=== PATIENT | female | born 1945 | race Caucasian/White ===

== ENCOUNTER → 2018-07-07 10:31 | Outpatient (CLI) | payer MEDICARE, SELFPAY ==
--- NOTE | 2018-07-07 11:12 | BI_ITS ---
MAMMOGRAPHY - BILATERAL SCREENING REASON FOR EXAM: Female, 72 years old. Routine annual screening examination. PERTINENT HISTORY: Non-contributory. TECHNIQUE: Digital bilateral breast modesto (3D mammographic acquisition) in the CC and MLO projections. 2-D mediolateral oblique (MLO) and craniocaudad (CC) views of both breasts were obtained. CAD: Full Field Digital Mammography with Computer Added Detection was performed. COMPARISON: Comparison is made with prior study dated May 16, 2017 and May 12, 2016. FINDINGS: Breast Composition: The breasts are almost entirely fatty. There are no dominant masses or suspicious calcifications. No other significant abnormalities are identified. There has been no significant change since the prior study. BI/SCREENING MAMM (CAD), BILAT IMPRESSION: Stable bilateral screening mammogram. Yearly follow-up mammogram recommended. (A) ASSESSMENT CATEGORY: BIRADS Category 1: Negative. A letter regarding these results will be sent to the patient by the facility within 30 days. Approximately 10% of breast cancers are not detected by mammography. A normal mammogram should not delay biopsy of a clinically suspicious abnormality. [id number] Electronically Signed: Haseeb Frias MD at 8:07 EST Tel [phone], Service support ,
== END ==
PROVIDERS: Family Provider Internal Medicine; PCP Internal Medicine; Referring Provider Internal Medicine; Visit Provider Internal Medicine
DX: Z12.31 Encounter for screening mammogram for malignant neoplasm of breast (principal)
CPT/HCPCS: 77063; 77067

== ENCOUNTER 2018-09-04 07:22 | Day surgery (SDC) | payer MEDICARE, SELFPAY ==
[2018-08-10 14:16] VITALS: BMI 31.1
[2018-09-04 07:48] VITALS: BP 214/81; PULSE 70; RESP 16; TEMP 37; O2SAT 95; BMI 31.4
--- NOTE | 2018-09-04 08:00 | IMM_PTH ---
PATIENT: KAREN HUDSON LOC: EN U#:[id number] AGE/SX: 72/F ROOM: RE09/04/[address]: Dr. Oziel Quinones MD : 1945 BED: DIS: 09/04/2018 SPEC #: [id number] RECD: 09/04/18 15:32 STATUS: MONSE AVA #: [id number] NIKI: 09/04/18 08:[address]: Oziel Quinones DEPT: IMMUNOHISTOCHEMISTRY RECD BY: Sheridan Elizabeth ENTERED: 09/04/18 15:32 SP TYPE: IMMUNO OTHR DR: Dr. Yashira Crandall DO Tissues: B - Stomach, NOS Procedures: H Pylori (initial) PHYSICIAN & INSTITUTION [place] [address] SPECIMEN INFORMATION: Tissue Source: B - Antrum biopsy Clinical Info: Dysphagia Specimen Number: [id number] CPT code: 13058 METHODOLOGY: Deparaffinized sections of prefer/formalin-fixed tissue or PAP/DQ stained slides are incubated with monoclonal/polyclonal antibodies/oligonucleotide probes. Localization is made via biotin free immunoperoxidase method. Appropriate controls are performed and reacted as expected. Results on target cell population are indicated in the following table: RESULTS: ANTIBODY / CLONE RESULT Block B H Pylori (polyclonal) negative These tests were developed and their performance characteristics determined by [facility]. They may not have been cleared or approved by the U.[place]. Food and Drug Administration. The FDA has determined that such clearance or approval is not necessary. INTERPRETATION: B. Antrum, biopsy: Negative for Helicobacter pylori organisms. AM:esmer 09/06/18
--- NOTE | 2018-09-04 08:00 | EGD_PTH ---
PATIENT: KAREN HUDSON LOC: EN U#:[id number] AGE/SX: 72/F ROOM: RE09/04/[address]: Dr. Oziel Quinones MD : 1945 BED: DIS: 09/04/2018 SPEC #: [id number] RECD: 09/04/18 11:30 STATUS: MONSE AVA #: [id number] NIKI: 09/04/18 08:[address]: Oziel Quinones DEPT: SURGICAL PATHOLOGY RECD BY: Ike Green ENTERED: 09/04/18 11:31 SP TYPE: EGD BIOPSY OTHR DR: Dr. Yashira Crandall DO Tissues: A - Duodenum, NOS B - Gastric mucous membrane C - Gastric fundus D - Esophagus, NOS E - Esophagus, NOS Procedures: Special Stain Group II Surgery Specimen Level IV Alcian Blue/PAS (control) HEADER OPERATION: EGD ([facility] [place] PRE-OP DIAGNOSIS: Dysphagia TISSUE SUBMITTED: A - Duodenum biopsy, B - Antrum biopsy for H. pylori and path, C - Biopsy of fundic polyp, D - Distal esophagus biopsy, E - Mid esophagus biopsy MICROSCOPIC DIAGNOSIS A. Duodenum, biopsy: No pathologic diagnosis. B. Gastric antrum, biopsy: Mild chronic gastritis. See comment. C. Gastric fundus, biopsy: Fragments of fundic gland polyp. D. 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 Mild chronic inflammation. No evidence of dysplasia. See comment. E. Mid esophagus, biopsy: Fragments of benign squamous epithelium. No evidence of inflammation. AM:esmer 09/05/18 COMMENT B. The results of immunohistochemistry for Helicobacter pylori will be reported separately ([id number]). D. Alcian blue/PAS stain with matched control supports the above diagnosis. MICROSCOPIC DESCRIPTION Slides are reviewed. GROSS DESCRIPTION A - Received in fixative is one container labeled with the patient's name and designated duodenum biopsy. The specimen consists of one irregular fragment of light easley soft tissue that measures 0.3 x 0.2 x 0.1 cm. The specimen is totally submitted in one cassette. B - Received in fixative is one container labeled with the patient's name and designated antrum biopsy. The specimen consists of two irregular fragments of light easley soft tissue that in aggregate measure 0.4 x 0.2 x 0.1 cm. The specimen is totally submitted in one cassette. C - Received in fixative is one container labeled with the patient's name and designated biopsy of fundic polyp. The specimen consists of two irregular fragments of light easley soft tissue that in aggregate measure 0.6 x 0.3 x 0.1 cm. The specimen is totally submitted in one cassette. D - Received in fixative is one container labeled with the patient's name and designated distal esophagus biopsy. The specimen consists of multiple irregular fragments of light easley soft tissue that in aggregate measure 0.6 x 0.5 x 0.1 cm. The specimen is totally submitted in one cassette. E - Received in fixative is one container labeled with the patient's name and designated mid esophagus biopsy. The specimen consists of one irregular fragment of light easley soft tissue that measures 0.4 x 0.3 x 0.1 cm. The specimen is totally submitted in one cassette. / SJ:rg 09/04/18 TC:3 CPT: 35995 x5, 74540
[2018-09-04 08:45] VITALS: BP 133/68; BP 214/81; PULSE 70; RESP 16; TEMP 36.4; O2SAT 94
--- NOTE | 2018-09-04 08:47 | OP.ENDO_ITS ---
Patient Name: Laurie Javier Procedure Date: 09/04/2018 8:25 AM Date of : 1945 Age: 72 Procedure: Upper GI endoscopy Indications: Dysphagia Providers: Oziel Quinones MD Referring MD: Yashira Crandall Medicines: See the Anesthesia note for documentation of the administered medications Complications: No immediate complications. Procedure: Pre-Anesthesia Assessment: - Prior to the procedure, a History and Physical was performed, and patient medications and allergies were reviewed. The patient's tolerance of previous anesthesia was also reviewed. The risks and benefits of the procedure and the sedation options and risks were discussed with the patient. All questions were answered, and informed consent was obtained. Prior Anticoagulants: The patient has taken no previous anticoagulant or antiplatelet agents. ASA Grade Assessment: II - A patient with mild systemic disease. After reviewing the risks and benefits, the patient was deemed in satisfactory condition to undergo the procedure. After obtaining informed consent, the endoscope was passed under direct vision. Throughout the procedure, the patient's blood pressure, pulse, and oxygen saturations were monitored continuously. The gastroscope was introduced through the mouth, and advanced to the second part of duodenum. The upper GI endoscopy was accomplished without difficulty. The patient tolerated the procedure well. Scope In: 8:32:29 AM Scope Out: 8:40:12 AM Total Procedure Duration Time 0 hours 7 minutes 43 seconds Findings: LA Grade A (one or more mucosal breaks less than 5 mm, not extending between tops of 2 mucosal folds) esophagitis with no bleeding was found 34 cm from the incisors. Biopsies were taken with a cold forceps for histology. The Z-line was irregular and was found 34 cm from the incisors. A 5 cm hiatal hernia was present. Diffuse mild inflammation was found in the gastric antrum. Biopsies were taken with a cold forceps for histology. Multiple pedunculated and sessile polyps with no stigmata of recent bleeding were found in the gastric fundus. The polyp was removed with a cold biopsy forceps. Resection and retrieval were complete. The examined duodenum was normal. Biopsies were taken with a cold forceps for histology. Impression: - LA Grade A reflux esophagitis. Biopsied. - Z-line irregular, 34 cm from the incisors. - 5 cm hiatal hernia Mid esophagus normal, biopsies obtained. - Chronic gastritis. Biopsied. - Multiple gastric polyps. Resected and retrieved. - Normal examined duodenum. Biopsied. Recommendation: - Discharge patient to home. - Resume previous diet. - Continue present medications. - Return to my office in 1 week. No stricture but significant hiatal hernia and changes of reflux. Consider manometry and repair. Procedure Code(s): --- Professional --- 84445, Esophagogastroduodenoscopy, flexible, transoral; with biopsy, single or multiple Diagnosis Code(s): --- Professional --- K21.0, Gastro-esophageal reflux disease with esophagitis K22.8, Other specified diseases of esophagus K44.9, Diaphragmatic hernia without obstruction or gangrene K29.50, Unspecified chronic gastritis without bleeding K31.7, Polyp of stomach and duodenum R13.10, Dysphagia, unspecified CPT copyright 2017 [place]. All rights reserved. The codes documented in this report are preliminary and upon hcc coders review may be revised to meet current compliance requirements. Oziel Quinones MD 09/04/2018 8:47:31 AM This report has been signed electronically. Number of Addenda: 0 Note Initiated On: 09/04/2018 8:25 AM
[2018-09-04 08:50] VITALS: BP 150/76; BP 214/81; PULSE 64; RESP 16; O2SAT 95
[2018-09-04 08:55] VITALS: BP 144/74; BP 214/81; PULSE 60; RESP 16; O2SAT 95
[2018-09-04 09:00] VITALS: BP 145/70; BP 152/72; PULSE 63; RESP 16; TEMP 36.2; O2SAT 94
[2018-09-04 09:38] VITALS: BP 145/70
== END 2018-09-04 09:49 | disposition home or self-care (01) ==
LOC: EN 07:26 → AC 07:26
PROVIDERS: Family Provider Internal Medicine; PCP Internal Medicine; Referring Provider Surgery; Visit Provider Surgery
PROC: 0DJ08ZZ Inspection of Upper Intestinal Tract, Via Natural or Artificial Opening Endoscopic (ICD-10-PCS; CPT 43235; principal; 2018-09-04 07:55)
DX: K29.50 Unspecified chronic gastritis without bleeding (principal); R13.10 Dysphagia, unspecified; K21.0 Gastro-esophageal reflux disease with esophagitis; K44.9 Diaphragmatic hernia without obstruction or gangrene; K31.7 Polyp of stomach and duodenum; Q39.9 Congenital malformation of esophagus, unspecified
CPT/HCPCS: 43239; 88305; 88313; 88342; J7120

== ENCOUNTER 2018-10-04 09:07 | Day surgery (SDC) | payer MEDICARE, SELFPAY ==
[2018-09-17 13:44] VITALS: BMI 31.4
[2018-10-04 10:03] VITALS: BP 178/85; PULSE 67; RESP 16; TEMP 36.7; O2SAT 99
== END 2018-10-04 10:03 | disposition home or self-care (01) ==
LOC: EN 09:09 → AC 09:15
PROVIDERS: Family Provider Internal Medicine; PCP Internal Medicine; Referring Provider Surgery; Visit Provider Surgery
PROC: F00ZJWZ Instrumental Swallowing and Oral Function Assessment using Swallowing Equipment (ICD-10-PCS; CPT 43235; principal; 2018-10-04 08:55)
DX: K21.9 Gastro-esophageal reflux disease without esophagitis (principal)
CPT/HCPCS: 91010

== ENCOUNTER → 2018-11-06 11:43 | Outpatient (CLI) | payer MEDICARE, SELFPAY ==
[2018-10-16 13:37] VITALS: BMI 31.4
[2018-11-06 11:47] LABS: Mucous, Urine 0 SEEN /hpf (<or=2+); Red Blood Cells-Urine 0 SEEN /hpf (0-5); Squamous Epithelial Cells - UA 0 SEEN /hpf (5-10)
[2018-11-06 12:48] LABS: Absolute Lymphocyte Count 2.76 X10^3/ul (0.83-4.51); Absolute Neutrophil Count 4.5 X10^3/uL (2.0-7.7); Basophil# 0.02 X10^3/uL; Basophil% 0.3 % (0-1); Eosinophil# 0.08 X10^3/uL; Lymphocyte # 2.76 X10^3/ul (4.0); Lymphocyte % 34.5 % (19-41); Mean Corp Hgb Conc 33.3 g/gl (32-36); Mean Corpuscular Hgb 31.5 pg (27.0-32.0); Mean Corpuscular Volume 94.4 fL (81-99); Mean Platelet Vol. 9.1 fl (6.2-12.0); Monocyte# 0.65 X10^3/uL; Monocyte% 8.1 % (0-10); Neutrophil # 4.45 X10^3/uL (2.7-7.7); Neutrophil % 55.7 % (47-70); Platelet Count 305 K/mm3 (150-450); RBC Distribution Width CV 11.9 % (11.6-14.6); RBC Distribution Width SD 40.1 fl (35.1-43.9); Red Blood Count 4.45 M/mm3 (4.2-5.4)
[2018-11-06 12:49] LABS: POSITIVE COUNT NO; POSITIVE DIFFERENTIAL NO; POSITIVE MORPHOLOGY NO
[2018-11-06 12:54] LABS: Color, Urine Yellow (Yellow); Glucose, Dipstick Normal (Normal); Ketone-Dipstick Negative (Negative); Leukocyte Esterase-Dipstick Negative /ul (Negative); Nitrite-Dipstick Negative (Negative); Occult Blood-Urine 25 /ul (Negative); Protein-Dipstick Negative (Negative); Urine Bilirubin Dipstick Negative (Negative); Urine Clarity Clear (Clear); Urine Urobilinogen Normal (Normal)
[2018-11-06 13:01] LABS: Bacteria RARE /hpf (None Seen); White Blood Cells 0-5 SEEN /hpf (0-5)
[2018-11-06 13:23] LABS: Microalbumin,Random Urine 7.7 mg/L (NO RANGE EST.); Microalbumin:Creatinine Ratio 12.2 mg/g CRE (<30 mg/g CRE)
[2018-11-06 13:45] LABS: ALB/GLOB Ratio 1.1 RATIO (0.9-2.4); AST(SGOT) 31 U/L (15-37); Alanine Aminotransfer ALT/SGPT 34 U/L (13-56); Albumin, Serum 3.8 g/dL (3.2-5.0); Alkaline Phosphatase 76 U/L (45-117); Anion Gap 9 (5-15); BUN 14 mg/dL (7-18); BUN/Creat Ratio 16.5 RATIO (10-20); Calcium,Total 8.9 mg/dL (8.5-10.1); Chloride 103 mmol/L (98-107); Creatinine, Serum 0.85 mg/dL (0.55-1.02); EST Glomerular Filtration Rate 70 mL/min (>60); Est Glom Filt Rate - Afr Amer 85 mL/min (>60); Globulin 3.6 g/dL (2.2-4.2); Glucose 85 mg/dL (74-106); Potassium 3.6 mmol/L (3.5-5.1); Protein, Total 7.4 g/dL (6.4-8.2); Sodium Level 139 mmol/L (136-145); Thyroid Stim Hormone (TSH) 3.03 uIU/mL (0.358-3.74)
== END ==
PROVIDERS: Family Provider Internal Medicine; PCP Internal Medicine; Referring Provider Nurse Practitioner Gerontology; Visit Provider Nurse Practitioner Gerontology
DX: I10 Essential (primary) hypertension (principal)
CPT/HCPCS: 36415; 80053; 81001; 82043; 82570; 84443; 85025

== ENCOUNTER 2018-11-19 11:47 | Observation (INO) | payer MEDICARE, SELFPAY ==
[2018-10-16 13:37] VITALS: BMI 31.4
[2018-11-14 13:12] VITALS: BMI 31.4
[2018-11-19] VITALS (12 sets, daily range): BP systolic 108–173; BP diastolic 63–83; PULSE 56–85; RESP 14–18; TEMP 35.7–36.7; O2SAT 88–100; BMI 31.2
--- NOTE | 2018-11-19 07:48 | HP.PCM_ITS ---
Problem List (1) GERD without esophagitis Status: Acute (2) Barretts esophagus Status: Acute Qualifiers: History of Present Illness Date of Admission: 11/19/18 The patient is a 73 year old F [] Past Medical History Medical History: Medical History (Last Reviewed 11/14/18 @ 13:08 by Mendy Hay) GERD without esophagitis (Acute) K21.9 Barretts esophagus (Acute) K22.70 Severe esophageal dysplasia (Acute) Q39.9 Difficulty swallowing R13.10 Epigastric pain R10.13 Thyroid disease E07.9 Allergies No Known Allergies Allergy (Verified 11/15/18 14:54) Home Medications: Ambulatory Orders Medication Instructions Recorded levothyroxine 100 mcg capsule 100 mcg PO QHS 08/10/18 omeprazole 40 mg capsule,delayed 40 mg PO 1400 08/10/18 release Ascorbic Acid [Vitamin C] 500 mg PO DAILY@0800 08/29/18 Cholecalciferol (Vitamin D3) 2,000 unit PO DAILY 08/29/18 [Vitamin D3] Cyanocobalamin [Vitamin B12] 1,000 mcg PO DAILY@0800 08/29/18 Magnesium 400 mg PO DAILY 08/29/18 Multivit with Calcium,Iron,Min 1 ea PO DAILY 08/29/18 [Multiple Vitamins For Women] [place]-3 Fatty Acids/Fish Oil [Fish 1 ea PO DAILY 08/29/18 Oil 1,000 mg Capsule] losartan 50 mg-hydrochlorothiazide 1 tab PO DAILY 11/14/18 12.5 mg tablet Albuterol IH (ProAir) [Proair Hfa 1 - 2 puff INHALATION Q6H PRN PRN 11/15/18 (SP)Vent Pts] Doxycycline Hyclate 100 mg PO BID 11/15/18 Xylitol [Xylimelts] 550 mg MM QHS 11/15/18 Surgical History: Surgical History (Last Reviewed 11/14/18 @ 13:08 by Mendy Hay) History of colonoscopy Onset Date: ~02/24/15 Z98.890 History of esophagogastroduodenoscopy (EGD) Onset Date: ~08/31/17 Z98.890 History of esophagogastroduodenoscopy (EGD) Onset Date: ~09/2018 Z98.890 History of laparoscopic cholecystectomy Z90.49 History of left cataract surgery Z98.42 History of repair of hiatal hernia Z98.890, Z87.19 Smoking Status: Never smoker Tobacco Use: Non-smoker - Physical Exam Vital Signs Temp Pulse Resp BP Pulse Ox 97.7 F L 64 14 173/76 H 100 11/19/18 06:59 11/19/18 06:59 11/19/18 06:59 11/19/18 06:59 11/19/18 06:59 Oxygen Delivery Method Room Air Weight: 187 lb 13.341 oz Body Mass Index (BMI) 31.2 Assessment/Plan All Active Problems (Last Reviewed 11/14/18 @ 13:08 by Mendy Hay) GERD without esophagitis (Acute) Barretts esophagus (Acute) Severe esophageal dysplasia (Acute)
--- NOTE | 2018-11-19 08:29 | PCM.DC.GS ---
Discharge Diet: Light diet - advance as tolerated - if you have questions about your diet instructions, please talk to you doctor. Discharge Activity: May Not Drive - for 3-5 days or while taking narcotic pain medicine. May shower in (days): 1 Lifting Restrictions: 10 pounds Call your doctor if your incision/area has: Continuous Slow Oozing, Sudden Increased Bleeding, Increased Pain/ Swelling, Increased Redness, Foul Smelling Discharge Call your doctor if you observe: Fever of 101 or Higher Suture Line Care: Avoid Pulling/Pushing, Avoid Pinching/Bending Additional Dressing/Incision Instructions:: Change or remove dressing in 4 days. Leave steri-strips in place for 1 week. Allergies/Adverse Reactions: Allergies No Known Allergies Allergy (Verified 11/15/18 14:54) Medications to take at Discharge levothyroxine 100 mcg capsule 100 mcg PO QHS 08/10/18 omeprazole 40 mg capsule,delayed release 40 mg PO 1400 08/10/18 Ascorbic Acid [Vitamin C] 500 mg PO DAILY@0800 08/29/18 Cholecalciferol (Vitamin D3) [Vitamin D3] 2,000 unit PO DAILY 08/29/18 Cyanocobalamin [Vitamin B12] 1,000 mcg PO DAILY@0800 08/29/18 Magnesium 400 mg PO DAILY 08/29/18 Multivit with Calcium,Iron,Min [Multiple Vitamins For Women] 1 ea PO DAILY 08/29/18 [place]-3 Fatty Acids/Fish Oil [Fish Oil 1,000 mg Capsule] 1 ea PO DAILY 08/29/18 losartan 50 mg-hydrochlorothiazide 12.5 mg tablet 1 tab PO DAILY 11/14/18 Albuterol IH (ProAir) [Proair Hfa] 1 - 2 puff INHALATION Q6H PRN PRN 11/15/18 Doxycycline Hyclate 100 mg PO BID 11/15/18 Xylitol [Xylimelts] 550 mg MM QHS 11/15/18 Hydrocodone Bitart/Apap 5-325 [[place] 5MG-325MG] 1 tablet PO Q6H PRN PRN 2 Days #6 tablet 11/19/18 The following prescriptions were given: Hydrocodone Bitart/Apap 5-325 [[place] 5MG-325MG] 1 tablet PO Q6H PRN PRN 2 Days #6 tablet PRN Reason: Pain Primary Care Physician: Yashira Crandall DO [Primary Care Provider] - Test Results: Test results from this visit will be discussed in further detail at your follow-up appointment, if applicable. Please Follow Up With: Oziel Quinones MD - [phone] When: Call to make an appointment to be seen in about 10 days.
[2018-11-19] MEDS: Cefazolin 2 GM in 0.9% Normal Saline 100 ML IV (08:39)
[2018-11-19] MEDS: Bupivacaine Mpf 0.5% 30 ML VIAL (11:50)
--- NOTE | 2018-11-19 11:51 | PCM.OPRPT ---
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 73-year-old female 6 tracheal intubation anesthesia. Ancef 2 g given intravenous preoperatively. She was placed in a low lithotomy position care. Careful buttock padding was performed. The abdomen was sterilely prepped draped. Ioban was used to pull the drapes in position. 0.5% Marcaine was used as local anesthetic. Skin sites were pre-anesthetized. To the right of the umbilicus and superiorly 5 mm Visiport technology was used to gain access. Clean access was achieved. The abdomen was insufflated with CO2 to a pressure of 10 mmHg pressure. There is evidence of previous surgery at the umbilical area with adhesions of omentum to that site. The patient had history of laparoscopic cholecystectomy and then a incisional hernia repair and then incisional hernia repair with mesh at that site. No attempt was made to take these adhesions down. The remainder the abdomen was inspected a moderate sized hiatal hernia was identified. Moderate portion of stomach within the chest. 5-minute report was placed in the left upper quadrant in the left lateral upper quadrant. A Prema retractor was placed near the xiphoid area and used to elevate the left lobe of the liver. The gastrophrenic ligament and there was significant amount of fibrofatty gastric fat at that area with evidence of sliding hiatal hernia. The stomach with withdrawn into the abdomen harmonic scalpel dissection was used to identify the right christian and then dissected over the anterior surface of the esophagus. Attention was now drawn to the left christian as extensive dissection was required to the amount of tissue that it withdrawn into the chest. The short gastrics were now transected using the harmonic scalpel. I did place a piece of fibular in the splenic area to further assist with hemostasis. Upon now having identified both the right and left christian and having dissected the anterior portion of the esophagus was able to get a grasper to go retroesophageal I placed 1/2 inch Gelacio drain use that to elevate the esophagus that allowed me to continue my circumferential dissection around the esophagus and completely mobilize it for approximately 6 cm to 8 cm. [place] that he had good mobilization. The posterior vagus nerve was identified and was carefully protected with the Gelacio drain. There is a posterior fat pad that I dissected free. The anterior fibrofatty tissue was also dissected free to allow for exposure of the anterior surface of the esophageal wall. Having achieved that I then repaired the diaphragmatic crura using the small pledgets of Hemashield Dacron. And 0 Nurolon sutures. That was nicely repaired posteriorly. I then took the fundus the stomach wrapped posteriorly appeared to sit in very nice position. I secured the wrap portion of the stomach to the diaphragmatic christian. Then using again 0 Nurolon I sutured the right aspect of the wrap portion of the fundus to the anterior wall of the esophagus with a running 0 Ethibond. Excellent positioning was achieved. I then took the fundus of the stomach and then a similar fashion secured the posterior aspect of the left portion of the fundus. Very nice positioning was achieved with a 270 degrees wrap. I secured the wrap to the epiphrenic ligament on the left with the 0 Nurolon. I further secured the anterior wall of the esophagus to the epiphrenic ligament with the a 0 Ethilon. The upper abdominal area was irrigated. I placed a flexible gastroscope then performed an upper endoscopy to the quick inspection of the antrum the stomach some mild erythema of the duodenum appeared to be unremarkable I retroflexed the scope there was a small amount of blood in the fundus however the posterior wrap could be visualized. Excess fluid and air was aspirated free there was absolutely no air leak within the abdomen. The EG junction appeared to be repositioned at its appropriate level if there was absolutely no hindrance of the scope passing the site of repair. Excess fluid and air was then aspirated out of the abdomen. I did place a piece of fibular on the short gastric area of the spleen hemostasis however nicely intact. Excess fluid and air was aspirated free. A GraNee needle and 0 Vicryl was used to repair the telemeter port site which had been placed in the left epigastrium. All remaining trochars removed under visualization. The abdomen was allowed to deflate the CO2. Skin edges proximal interrupted 4 Monocryl subdermal stitches. Steri-Strips Telfa and OpSite dressings applied. Sponge and instrument and needle counts reported the surgery were correct. Blood loss have been quite minimal. Specimens none. Drains none. Blood loss minimal. She was taken to the recovery area in sensory condition without apparent complication. Oziel Quinones M.D., F.A.C.S. Type of Anesthesia:: General Anesthesiologist: Ariella Resendez
--- NOTE | 2018-11-19 11:59 | OP.PCM_ITS ---
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 73-year-old female 6 tracheal intubation anesthesia. Ancef 2 g given intravenous preoperatively. She was placed in a low lithotomy position care. Careful buttock padding was performed. The abdomen was sterilely prepped draped. Ioban was used to pull the drapes in position. 0.5% Marcaine was used as local anesthetic. Skin sites were pre- anesthetized. To the right of the umbilicus and superiorly 5 mm Visiport technology was used to gain access. Clean access was achieved. The abdomen was insufflated with CO2 to a pressure of 10 mmHg pressure. There is evidence of previous surgery at the umbilical area with adhesions of omentum to that site. The patient had history of laparoscopic cholecystectomy and then a incisional hernia repair and then incisional hernia repair with mesh at that site. No attempt was made to take these adhesions down. The remainder the abdomen was inspected a moderate sized hiatal hernia was identified. Moderate portion of stomach within the chest. 5-minute report was placed in the left upper quadrant in the left lateral upper quadrant. A Prema retractor was placed near the xiphoid area and used to elevate the left lobe of the liver. The gastrophrenic ligament and there was significant amount of fibrofatty gastric fat at that area with evidence of sliding hiatal hernia. The stomach with withdrawn into the abdomen harmonic scalpel dissection was used to identify the right christian and then dissected over the anterior surface of the esophagus. Attention was now drawn to the left christian as extensive dissection was required to the amount of tissue that it withdrawn into the chest. The short gastrics were now transected using the harmonic scalpel. I did place a piece of fibular in the splenic area to further assist with hemostasis. Upon now having identified both the right and left christian and having dissected the anterior portion of the esophagus was able to get a grasper to go retroesophageal I placed 1/2 inch [place] drain use that to elevate the esophagus that allowed me to continue my circumferential dissection around the esophagus and completely mobilize it for approximately 6 cm to 8 cm. [place] that he had good mobilization. The posterior vagus nerve was identified and was carefully protected with the [place] drain. There is a posterior fat pad that I dissected free. The anterior fibrofatty tissue was also dissected free to allow for exposure of the anterior surface of the esophageal wall. Having achieved that I then repaired the diaphragmatic crura using the small pledgets of Hemashield Dacron. And 0 Nurolon sutures. That was nicely repaired posteriorly. I then took the fundus the stomach wrapped posteriorly appeared to sit in very nice position. I secured the wrap portion of the stomach to the diaphragmatic christian. Then using again 0 Nurolon I sutured the right aspect of th e wrap portion of the fundus to the anterior wall of the esophagus with a running 0 Ethibond. Excellent positioning was achieved. I then took the fundus of the stomach and then a similar fashion secured the posterior aspect of the left portion of the fundus. Very nice positioning was achieved with a 270 degrees wrap. I secured the wrap to the epiphrenic ligament on the left with the 0 Nurolon. I further secured the anterior wall of the esophagus to the epiphrenic ligament with the a 0 Ethilon. The upper abdominal area was irrigated. I placed a flexible gastroscope then performed an upper endoscopy to the quick inspection of the antrum the stomach some mild erythema of the duodenum appeared to be unremarkable I retroflexed the scope there was a small amount of blood in the fundus however the posterior wrap could be visualized. Excess fluid and air was aspirated free there was absolutely no air leak within the abdomen. The EG junction appeared to be repositioned at its appropriate level if there was absolutely no hindrance of the scope passing the site of repair. Excess fluid and air was then aspirated out of the abdomen. I did place a piece of fibular on the short gastric area of the spleen hemostasis however nicely intact. Excess fluid and air was aspirated free. A GraNee needle and 0 Vicryl was used to repair the telemeter port site which had been placed in the left epigastrium. All remaining trochars removed under visualization. The abdomen was allowed to deflate the CO2. Skin edges proximal interrupted 4 Monocryl subdermal stitches. Steri-Strips Telfa and OpSite dressings applied. Sponge and instrument and needle counts reported the surgery were correct. Blood loss have been quite minimal. Specimens none. Drains none. Blood loss minimal. She was taken to the recovery area in sensory condition without apparent complication. Oziel Quinones M.D., F.A.C.S. Type of Anesthesia:: General Anesthesiologist: Ariella Resendez
[2018-11-19] MEDS: Pantoprazole Sodium 40 MG Tablet PO (15:52)
--- NOTE | 2018-11-19 17:02 | PCM.PN.BLA ---
Progress Note Pt thinks her swallowing of clear liquids is improved No specific complaints other than her chronic dry mouth VS stable Continue care
[2018-11-19] MEDS: HYDROcodone Bitartrate/Apap 5/325 Tablet PO ×2 (17:23→22:00)
[2018-11-19] MEDS: Levothyroxine 100 MCG Tablet PO (21:50)
[2018-11-19] MEDS: Doxycycline 100 MG CAPSULE PO (21:50)
[2018-11-20 04:00] VITALS: BP 154/78; PULSE 70; RESP 16; TEMP 36.8; O2SAT 97
--- NOTE | 2018-11-20 06:03 | PCM.PN.BLA ---
Progress Note Doing well Wants to talk about her previous eye surgery Plan discharge today
[2018-11-20 07:03] VITALS: O2SAT 95
[2018-11-20] MEDS: Magnesium Oxide 400 MG Tablet PO (08:20)
[2018-11-20] MEDS: hydroCHLOROthiazide 12.5mg 12.5 MG PO (08:20)
[2018-11-20] MEDS: Enoxaparin 40 MG/0.4 ML Syringe SC (08:21)
[2018-11-20] MEDS: Losartan Potassium 50 MG Tablet PO (08:21)
[2018-11-20 08:42] VITALS: BP 177/64; PULSE 64; RESP 18; TEMP 36.6; O2SAT 97
== END 2018-11-20 10:11 | disposition home or self-care (01) ==
LOC: SDC 12:00
PROVIDERS: Admitting Provider Surgery; Family Provider Internal Medicine; PCP Internal Medicine; Referring Provider Surgery; Visit Provider Surgery
PROC: (CPT 43325; principal; 2018-11-19 08:30)
DX: K21.9 Gastro-esophageal reflux disease without esophagitis (principal); K44.9 Diaphragmatic hernia without obstruction or gangrene; K22.70 Barrett's esophagus without dysplasia; E07.9 Disorder of thyroid, unspecified; Z79.899 Other long term (current) drug therapy; I10 Essential (primary) hypertension; J44.9 Chronic obstructive pulmonary disease, unspecified
CPT/HCPCS: 00790; 43280; 94762; 96372; 99218; J7120; C1768; G0378; G0379; J2405

== ENCOUNTER → 2019-05-29 15:00 | Outpatient (CLI) | payer MEDICARE, SELFPAY ==
[2018-11-19 13:28] VITALS: BMI 31.2
--- NOTE | 2019-05-29 15:05 | RAD_ITS ---
STUDY: X-RAY - PELVIS AND BILATERAL HIPS REASON FOR EXAM: Female, 73 years old. Low back pain and hip pain TECHNIQUE: AP view of the pelvis.? 2 views of the right hip, and 2 views of the left hip were obtained. COMPARISON: None. FINDINGS: There is a non-specific bowel gas pattern. Normal visualized soft tissue structures. Normal bilateral iliac wings, sacroiliac joints and visualized sacrum. Normal bilateral superior and inferior pubic rami. Normal pubic symphysis. Normal bilateral ischial tuberosities. Normal visualized right femoral head. Mild spurring of the right acetabulum. Normal right hip joint. Normal visualized left femoral head. Mild spurring of the left acetabulum. Concentric narrowing of the left hip joint. RAD/Hips B/L min 2 views w/ Pelvis IMPRESSION: Degenerative changes of both hips greater on the left. No acute fracture or dislocation. Electronically Signed: Shlomo Jackson MD at 21:47 EDT , Service support ,
--- NOTE | 2019-05-29 15:05 | RAD_ITS ---
STUDY: X-RAY - LUMBAR SPINE REASON FOR EXAM: Female, 73 years old. Low back pain TECHNIQUE: 5 view(s) of the lumbar spine were obtained. COMPARISON: January 07, 2015 report only FINDINGS: Normal lumbar lordosis. There is mild levo scoliosis. There is a normal alignment of the vertebrae. There is no evidence for acute fracture or subluxation.. There is narrowing of the disc space at all levels association with endplate spurring. No lytic or sclerotic bony lesions are evident. Diffuse vascular calcification noted without evidence for aneurysm. Postop changes status post cholecystectomy RAD/L/S Spine Min 4 Views IMPRESSION: Scoliosis and advanced spondylosis No acute fracture or other significant bony pathology Electronically Signed: Shlomo Jackson MD at 22:52 EDT , Service support ,
== END ==
PROVIDERS: Family Provider Internal Medicine; PCP Internal Medicine; Referring Provider Internal Medicine; Visit Provider Internal Medicine
DX: R10.31 Right lower quadrant pain (principal); R10.32 Left lower quadrant pain; M54.40 Lumbago with sciatica, unspecified side
CPT/HCPCS: 72110; 73521

== ENCOUNTER → 2019-07-12 13:08 | Outpatient (CLI) | payer MEDICARE, SELFPAY ==
[2018-11-19 13:28] VITALS: BMI 31.2
--- NOTE | 2019-07-12 13:19 | BI_ITS ---
MAMMOGRAPHY - BILATERAL SCREENING REASON FOR EXAM: Female, 73 years old. Routine annual screening examination. PERTINENT HISTORY: Non-contributory. TECHNIQUE: Digital bilateral breast paul (3D mammographic acquisition) in the CC and MLO projections. 2-D mediolateral oblique (MLO) and craniocaudad (CC) views of both breasts were obtained. CAD: Full Field Digital Mammography with Computer Added Detection was performed. COMPARISON: Comparison is made with prior study dated July 07, 2018 and May 16, 2017. FINDINGS: Breast Composition: The breasts are almost entirely fatty. There are no dominant masses or suspicious calcifications. Stable small benign-appearing bilateral axillary lymph nodes. No other significant abnormalities are identified. There has been no significant change since the prior study. BI/SCREEN MAMM (CAD) W/PAUL BILAT IMPRESSION: Stable bilateral screening mammogram. Yearly follow-up mammogram recommended. (A) ASSESSMENT CATEGORY: BIRADS Category 2: Benign. A letter regarding these results will be sent to the patient by the facility within 30 days. Approximately 10% of breast cancers are not detected by mammography. A normal mammogram should not delay biopsy of a clinically suspicious abnormality. [id number] Electronically Signed: Haseeb Frias, at 14:59 EST , Service support ,
== END ==
PROVIDERS: Family Provider Internal Medicine; PCP Internal Medicine; Referring Provider Internal Medicine; Visit Provider Internal Medicine
DX: Z12.31 Encounter for screening mammogram for malignant neoplasm of breast (principal)
CPT/HCPCS: 77063; 77067

== ENCOUNTER → 2019-10-31 15:53 | Outpatient (CLI) | payer MEDICARE, SELFPAY ==
[2018-11-19 13:28] VITALS: BMI 31.2
--- NOTE | 2019-10-31 15:57 | RAD_ITS ---
STUDY: X-RAY - RIGHT KNEE REASON FOR EXAM: Female, 73 years old. PAIN IN BOTH KNEES. PATIENT STATES SHE FELL ABOUT 1 YEAR AGO ONTO BOTH KNEES AND HAS HAD PAIN SINCE THEN. TECHNIQUE: 4 view(s) of the knee. COMPARISON: None. FINDINGS: Normal visualized distal femur. Normal visualized proximal tibia and fibula. Normal proximal tibiofibular articulation. There is mild degenerative arthrosis of the medial femorotibial compartment. Normal lateral femorotibial compartment. Normal patellofemoral articulation. The soft tissue structures are unremarkable. RAD/Knee 4 or More Views IMPRESSION: Mild degenerative changes of the medial knee compartment. Electronically Signed: Hieu Perez MD at 23:55 EDT , Service support ,
--- NOTE | 2019-10-31 15:58 | RAD_ITS ---
STUDY: X-RAY - LEFT KNEE REASON FOR EXAM: Female, 73 years old. PAIN IN BOTH KNEES. PATIENT STATES SHE FELL ABOUT 1 YEAR AGO ONTO BOTH KNEES AND HAS HAD PAIN SINCE THEN. TECHNIQUE: 4 view(s) of the knee. COMPARISON: None. FINDINGS: Normal visualized distal femur. Normal visualized proximal tibia and fibula. Normal proximal tibiofibular articulation. There are mild degenerative changes with mild joint space narrowing of the medial knee compartment. Normal lateral femorotibial compartment. Normal patellofemoral articulation. The soft tissue structures are unremarkable. RAD/Knee 4 or More Views IMPRESSION: Mild degenerative changes with mild joint space narrowing of the medial knee compartment. Electronically Signed: Hieu Perez MD at 23:56 EDT , Service support ,
== END ==
PROVIDERS: PCP Internal Medicine; Referring Provider Internal Medicine; Visit Provider Internal Medicine
DX: M25.561 Pain in right knee (principal); M25.562 Pain in left knee
CPT/HCPCS: 73564

== ENCOUNTER → 2019-11-04 10:44 | Outpatient (CLI) | payer MEDICARE, SELFPAY ==
[2018-11-19 13:28] VITALS: BMI 31.2
[2019-11-04 10:54] LABS: Bacteria 0 SEEN /hpf (None Seen); Mucous, Urine 0 SEEN /hpf (<or=2+); Squamous Epithelial Cells - UA 0 SEEN /hpf (5-10); White Blood Cells 0 SEEN /hpf (0-5)
[2019-11-04 11:26] LABS: Absolute Lymphocyte Count 1.31 X10^3/uL (0.83-4.51); Absolute Neutrophil Count 2.5 X10^3/uL (2.0-7.7); Basophil# 0.03 X10^3/uL; Basophil% 0.7 % (0-1); Eosinophil# 0.21 X10^3/uL; Eosinophils% 4.8 % (0-5); Hematocrit 38.6 % (37-47); Lymphocyte # 1.31 X10^3/ul (4.0); Lymphocyte % 29.9 % (19-41); Mean Corp Hgb Conc 33.7 g/dL (32-36); Mean Corpuscular Hgb 31.8 pg (27.0-32.0); Mean Corpuscular Volume 94.4 fL (81-99); Mean Platelet Vol. 9.2 fl (6.2-12.0); Monocyte# 0.31 X10^3/uL; Monocyte% 7.1 % (0-10); NRBC Flagged by Analyzer 0 % (0-5); Neutrophil # 2.51 X10^3/uL (2.7-7.7); Neutrophil % 57.3 % (47-70); Platelet Count 221 K/mm3 (150-450); RBC Distribution Width CV 11.3 % (11.6-14.6); RBC Distribution Width SD 39.2 fl (35.1-43.9); Red Blood Count 4.09 M/mm3 (4.2-5.4); White Blood Count 4.4 K/mm3 (4.4-11.0)
[2019-11-04 11:32] LABS: Color, Urine Yellow (Yellow); Glucose, Dipstick Normal (Normal); Ketone-Dipstick Negative (Negative); Leukocyte Esterase-Dipstick Negative /ul (Negative); Nitrite-Dipstick Negative (Negative); Occult Blood-Urine 25 /ul (Negative); Protein-Dipstick Negative (Negative); Specific Gravity, Urine 1.005 (1.002-1.030); Urine Bilirubin Dipstick Negative (Negative); Urine Clarity Clear (Clear); Urine Urobilinogen Normal (Normal)
[2019-11-04 11:45] LABS: Microalbumin,Random Urine < 5.0 mg/L (NO RANGE EST.)
[2019-11-04 11:52] LABS: Vitamin D,25 Hydroxy 28.2 ng/mL
[2019-11-04 11:53] LABS: Red Blood Cells-Urine 0-5 SEEN /hpf (0-5)
[2019-11-04 12:20] LABS: ALB/GLOB Ratio 1.1 RATIO (0.9-2.4); AST(SGOT) 33 U/L (15-37); Alanine Aminotransfer ALT/SGPT 20 U/L (13-56); Albumin, Serum 3.5 g/dL (3.2-5.0); Alkaline Phosphatase 72 U/L (45-117); Anion Gap 6 (5-15); BUN 15 mg/dL (7-18); BUN/Creat Ratio 18.9 RATIO (10-20); Calcium,Total 8.6 mg/dL (8.5-10.1); Chloride 107 mmol/L (98-107); Cholesterol 234 mg/dL (200); Creatinine, Serum 0.79 mg/dL (0.55-1.02); EST Glomerular Filtration Rate 75 mL/min (>60); Est Glom Filt Rate - Afr Amer 91 mL/min (>60); Globulin 3.3 g/dL (2.2-4.2); Glucose 92 mg/dL (74-106); High Density Lipoprotein 89 mg/dL; Potassium 3.8 mmol/L (3.5-5.1); Protein, Total 6.8 g/dL (6.4-8.2); Sodium Level 140 mmol/L (136-145); Thyroid Stim Hormone (TSH) 1.46 uIU/mL (0.358-3.74); Triglycerides 69 mg/dL; Very Low Density Lipoprotein 14 mg/dL (5-40)
== END ==
PROVIDERS: PCP Internal Medicine; Referring Provider Internal Medicine; Visit Provider Internal Medicine
DX: E55.9 Vitamin D deficiency, unspecified (principal); I10 Essential (primary) hypertension; E03.9 Hypothyroidism, unspecified; E78.00 Pure hypercholesterolemia, unspecified
CPT/HCPCS: 36415; 80053; 80061; 81001; 82043; 82306; 82570; 84443; 85025; 86850; 86900; 86901

== ENCOUNTER → 2020-04-28 14:04 | Outpatient (CLI) | payer MEDICARE, SELFPAY ==
[2018-11-19 13:28] VITALS: BMI 31.2
--- NOTE | 2020-04-28 14:09 | CDU_ITS ---
Reason For Study: Atherosclerosis of carotid artery Rt. Velocities/BP Lt. Velocities/BP Prox CCA 81.2/12.1 cm/sec. Prox CCA 97.4/13.9 cm/sec. Mid CCA 169.6/20.4 cm/sec. Mid CCA 78.9/13.9 cm/sec. Dist CCA 92.8/16 cm/sec. Dist CCA 76.5/16.3 cm/sec. Prox ICA 63/12.6 cm/sec. Prox ICA 64.2/12.6 cm/sec. Mid ICA 102.3/29.8 cm/sec. Mid ICA 78.9/21.2 cm/sec. Dist ICA 86.3/24.9 cm/sec. Dist ICA 86.3/21.2 cm/sec. Rt. ICA/CCA = 1.1. Lt. ICA/CCA = 1.09. Prox ECA 106/7.2 cm/sec. Prox ECA 88.8/10.2 cm/sec. Rt. Vert. 45.8/10.2 cm/sec. Lt. Vert. 46.6 cm/sec. Right Extracranial There is intimal thickening but no significant atherosclerotic plaque noted in the right common carotid artery. The right common carotid artery is tortuous. There is heterogeneous, irregular atherosclerotic plaque noted in the right internal carotid artery. There is intimal thickening but no significant atherosclerotic plaque noted in the right external carotid artery. Antegrade flow is noted in the right vertebral artery. Left Extracranial There is intimal thickening but no significant atherosclerotic plaque noted in the left common carotid artery. There is heterogeneous, irregular atherosclerotic plaque noted in the left internal carotid artery. There is intimal thickening but no significant atherosclerotic plaque noted in the left external carotid artery. Antegrade flow is noted in the left vertebral artery. Procedure Carotid Duplex [id number]. Exam performed in department. Interpretation Summary Mild (<50%) stenosis right extracranial internal carotid. Mild (<50%) stenosis left extracranial internal carotid. Flow within the vertebral arteries is antegrade bilaterally. Right common carotid artery with moderate stenosis. Ordering Physician: Yashira Crandall Referring Physician: Yashira Crandall Performed By: Melba Gallegos RVT and Student
== END ==
PROVIDERS: PCP Internal Medicine; Referring Provider Internal Medicine; Visit Provider Internal Medicine
DX: I65.23 Occlusion and stenosis of bilateral carotid arteries (principal)
CPT/HCPCS: 93880

== ENCOUNTER → 2020-07-28 12:06 | Outpatient (CLI) | payer MEDICARE, SELFPAY ==
[2018-11-19 13:28] VITALS: BMI 31.2
--- NOTE | 2020-07-28 12:08 | BI_ITS ---
MAMMOGRAPHY - BILATERAL SCREENING REASON FOR EXAM: Female, 74 years old. Routine annual screening examination. PERTINENT HISTORY: Non-contributory. TECHNIQUE: Digital bilateral breast paul (3D mammographic acquisition) in the CC and MLO projections. 2-D mediolateral oblique (MLO) and craniocaudad (CC) views of both breasts were obtained. CAD: Full Field Digital Mammography with Computer Added Detection was performed. COMPARISON: Comparison is made with prior study dated 07/12/2019 and 07/07/2018. FINDINGS: Breast Composition: The breasts are almost entirely fatty. There are no dominant masses or suspicious calcifications. Stable small benign appearing bilateral axillary lymph nodes. No other significant abnormalities are identified. There has been no significant change since the prior study. BI/SCREEN MAMM (CAD) W/PAUL BILAT IMPRESSION: Stable bilateral screening mammogram. Yearly follow-up mammogram recommended. (A) ASSESSMENT CATEGORY: BIRADS Category 2: Benign. A letter regarding these results will be sent to the patient by the facility within 30 days. Approximately 10% of breast cancers are not detected by mammography. A normal mammogram should not delay biopsy of a clinically suspicious abnormality. [id number] Electronically Signed: Haseeb Frias, at 12:59 EST , Service support ,
== END ==
PROVIDERS: PCP Internal Medicine; Referring Provider Internal Medicine; Visit Provider Internal Medicine
DX: Z12.31 Encounter for screening mammogram for malignant neoplasm of breast (principal)
CPT/HCPCS: 77063; 77067

== ENCOUNTER → 2021-03-10 10:23 | Outpatient (CLI) | payer MEDICARE, SELFPAY ==
[2018-11-19 13:28] VITALS: BMI 31.2
[2021-03-10 10:30] LABS: Mucous, Urine 0 SEEN /hpf (<or=2+)
[2021-03-10 11:42] LABS: Color, Urine Yellow (Yellow); Glucose, Dipstick Normal (Normal); Ketone-Dipstick Negative (Negative); Leukocyte Esterase-Dipstick 25 /ul (Negative); Nitrite-Dipstick Negative (Negative); Occult Blood-Urine 50 /ul (Negative); Protein-Dipstick 15 mg/dl (Negative); Urine Bilirubin Dipstick Negative (Negative); Urine Clarity Clear (Clear); Urine Urobilinogen Normal (Normal)
[2021-03-10 11:44] LABS: Absolute Lymphocyte Count 1.56 X10^3/uL (0.83-4.51); Absolute Neutrophil Count 2.9 X10^3/uL (2.0-7.7); Basophil# 0.03 X10^3/uL; Basophil% 0.6 % (0-1); Eosinophil# 0.19 X10^3/uL; Eosinophils% 3.8 % (0-5); Hematocrit 37.1 % (37-47); Hemoglobin 12.5 g/dL (12.0-15.0); Lymphocyte # 1.56 X10^3/ul (0.83-4.51); Mean Corp Hgb Conc 33.7 g/dL (32-36); Mean Corpuscular Hgb 31.8 pg (27.0-32.0); Mean Corpuscular Volume 94.4 fL (81-99); Mean Platelet Vol. 9.4 fl (6.2-12.0); Monocyte# 0.38 X10^3/uL; Monocyte% 7.6 % (0-10); NRBC Flagged by Analyzer 0 % (0-5); Neutrophil # 2.86 X10^3/uL (2.7-7.7); Neutrophil % 56.8 % (47-70); Platelet Count 272 K/mm3 (150-450); RBC Distribution Width CV 11.3 % (11.6-14.6); RBC Distribution Width SD 39.2 fl (35.1-43.9); Red Blood Count 3.93 M/mm3 (4.2-5.4)
[2021-03-10 11:48] LABS: Bacteria 1+ /hpf (None Seen); Red Blood Cells-Urine 0-5 SEEN /hpf (0-5); Squamous Epithelial Cells - UA 0-5 SEEN /hpf (5-10); White Blood Cells 0-5 SEEN /hpf (0-5)
[2021-03-10 12:03] LABS: Microalbumin,Random Urine 8.8 mg/L (NO RANGE EST.); Microalbumin:Creatinine Ratio 10.7 mg/g CRE (<30 mg/g CRE)
[2021-03-10 12:20] LABS: ALB/GLOB Ratio 1.1 RATIO (0.9-2.4); AST(SGOT) 25 U/L (15-37); Alanine Aminotransfer ALT/SGPT 20 U/L (13-56); Albumin, Serum 3.6 g/dL (3.2-5.0); Alkaline Phosphatase 78 U/L (45-117); Anion Gap 7 (5-15); BUN 12 mg/dL (7-18); BUN/Creat Ratio 13.7 RATIO (10-20); Calcium,Total 8.6 mg/dL (8.5-10.1); Chloride 100 mmol/L (98-107); Cholesterol 245 mg/dL (200); Creatinine, Serum 0.88 mg/dL (0.55-1.02); EST Glomerular Filtration Rate 67 mL/min (>60); Est Glom Filt Rate - Afr Amer 81 mL/min (>60); Globulin 3.3 g/dL (2.2-4.2); Glucose 94 mg/dL (74-106); High Density Lipoprotein 84 mg/dL; Potassium 3.9 mmol/L (3.5-5.1); Protein, Total 6.9 g/dL (6.4-8.2); Sodium Level 136 mmol/L (136-145); Thyroid Stim Hormone (TSH) 2.16 uIU/mL (0.358-3.74); Triglycerides 87 mg/dL; Very Low Density Lipoprotein 17 mg/dL (5-40)
== END ==
PROVIDERS: PCP Internal Medicine; Referring Provider Internal Medicine; Visit Provider Internal Medicine
DX: E78.00 Pure hypercholesterolemia, unspecified (principal); R73.09 Other abnormal glucose
CPT/HCPCS: 36415; 80053; 80061; 81001; 82043; 82570; 84443; 85025

== ENCOUNTER → 2021-07-29 13:06 | Outpatient (CLI) | payer MEDICARE, SELFPAY ==
[2018-11-19 13:28] VITALS: BMI 31.2
--- NOTE | 2021-07-29 13:07 | BD_ITS ---
STUDY: DUAL ENERGY X-RAY ABSORPTIOMETRY / DXA REASON FOR EXAM: Female, 75 years old. [id number]. The patient is postmenopausal TECHNIQUE: Bone Mineral Density (BMD) measurements of lumbar spine and bilateral hips were obtained. COMPARISON: Comparison is made with prior study dated 05/16/2017. FINDINGS: Lumbar Spine (L1-L4): g/cm2 (1.144) / T-score (0.9) / Z-score (3.3) Findings are suggestive of normal bone density with a low fracture risk. Left Femur Total: g/cm2 (0.910) / T-score (-0.3) / Z-score (1.6) Left Femoral Neck: g/cm2 (0.865) / T-score (0.1) / Z-score (2.3) Right Femur Total: g/cm2 (0.877) / T-score (-0.5) / Z-score (1.3) Right Femoral Neck: g/cm2 (0.7-0) / T-score (-1.2) / Z-score (0.9) The T-Scores on the most recent prior examination were: Lumbar Spine (L1-L4): There has been worsening of bone density since the previous examination. Left Femur Total: which represents a worsening of 1.4%. Right Femur Total: which represents a worsening of 0.8%. BD/Dexa Bone Density Study IMPRESSION: The patient is considered osteopenic as outlined below according to [place] Organization (WHO) criteria with a low fracture risk. There has been worsening of bone density since the previous examination. Reference Information: The T-score is the number of standard deviations above or below the standard which is normal for young adults at their peak bone mineral density. The World Health Organization (WHO) interprets the T-scores as follows: Above -1 Normal bone density Between -1 and -2.5 Osteopenia Equal to / or below -2.5 Osteoporosis As a practical clinical guideline, osteopenia may be graded as follows: Mild -1 through -1.5 Moderate -1.6 through -2.0 Severe -2.1 through -2.4 The Z-score is the number of standard deviations above or below age-matched controls. A Z-score of less than -1.5 would be considered abnormal. References: 1. NIH Osteoporosis and Related Bone Diseases www osteo.org 2. International Society for Clinical Densitometry www iscd.org 3. National Osteoporosis Foundation www nof.org Electronically Signed: Haseeb Frias MD at 13:59 EST , Service support ,
--- NOTE | 2021-07-29 13:08 | BI_ITS ---
MAMMOGRAPHY - BILATERAL SCREENING REASON FOR EXAM: Female, 75 years old. Routine annual screening examination. PERTINENT HISTORY: Non-contributory. TECHNIQUE: Digital bilateral breast paul (3D mammographic acquisition) in the CC and MLO projections. 2-D mediolateral oblique (MLO) and craniocaudad (CC) views of both breasts were obtained. CAD: Full Field Digital Mammography with Computer Added Detection was performed. COMPARISON: Comparison is made with prior examination dated 07/28/2020 and 07/12/2019. FINDINGS: Breast Composition: The breasts are almost entirely fatty. There are no dominant masses or suspicious calcifications. Stable small benign appearing bilateral axillary nodes. No other significant abnormalities are identified. There has been no significant change since the prior study. BI/SCRN MAMM (CAD)W/PAUL BILAT IMPRESSION: Stable bilateral screening mammogram. Yearly follow-up mammogram recommended. (A) ASSESSMENT CATEGORY: BIRADS Category 2: Benign. A letter regarding these results will be sent to the patient by the facility within 30 days. Approximately 10% of breast cancers are not detected by mammography. A normal mammogram should not delay biopsy of a clinically suspicious abnormality. [id number] Electronically Signed: Haseeb Frias MD at 14:27 EST , Service support ,
== END ==
PROVIDERS: PCP Internal Medicine; Referring Provider Internal Medicine; Visit Provider Internal Medicine
DX: Z12.31 Encounter for screening mammogram for malignant neoplasm of breast (principal); Z78.0 Asymptomatic menopausal state
CPT/HCPCS: 77063; 77067; 77080

== ENCOUNTER 2021-09-01 15:24 | Emergency (ER) | payer MEDICARE, SELFPAY ==
[2021-09-01 15:26] VITALS: BP 175/76; PULSE 84; RESP 14; TEMP 36.8; O2SAT 98; BMI 35.2
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
[2021-09-01 15:52] VITALS: TEMP 36.6
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
== END 2021-09-01 17:02 | disposition home or self-care (01) ==
PROVIDERS: Emergency Provider Emergency Medicine; PCP Internal Medicine; Visit Provider Emergency Medicine
DX: S83.92XA Sprain of unspecified site of left knee, initial encounter (principal); S29.012A Strain of muscle and tendon of back wall of thorax, initial encounter; V89.2XXA Person injured in unspecified motor-vehicle accident, traffic, initial encounter
CPT/HCPCS: 70450; 72125; 73564; 99284

== ENCOUNTER 2021-10-20 15:00 | Outpatient (RCR) | payer MEDICARE, SELFPAY ==
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
== END 2021-10-20 19:00 | disposition home or self-care (01) ==
LOC: PT 15:00
PROVIDERS: PCP Internal Medicine; Referring Provider Internal Medicine; Visit Provider Internal Medicine
DX: S16.1XXD Strain of muscle, fascia and tendon at neck level, subsequent encounter (principal); V99.XXXD Unspecified transport accident, subsequent encounter; S83.92XD Sprain of unspecified site of left knee, subsequent encounter
CPT/HCPCS: 97012; 97110; 97113; 97140; 97162; 97164

== ENCOUNTER 2021-11-04 16:13 | Emergency (ER) | payer MEDICARE, SELFPAY ==
[2021-11-04 16:15] VITALS: BP 187/79; PULSE 74; RESP 18; TEMP 36.7; O2SAT 94; BMI 32.3
--- NOTE | 2021-11-04 16:38 | EKG12_ITS ---
Test Reason : HTN Blood Pressure : / mmHG Vent. Rate : 058 BPM Atrial Rate : 058 BPM P-R Int : 170 ms QRS Dur : 074 ms QT Int : 418 ms P-R-T Axes : 033 -16 -12 degrees QTc Int : 410 ms Sinus bradycardia Otherwise normal ECG Confirmed by TOMY BLANCO, KIANA ([id number]), photograph editor LILA STEWART ([id number]) on 11/08/2021 10:55:38 A M Referred By: AIDE Confirmed By:DES HUITRON MD
--- NOTE | 2021-11-04 16:39 | EDS_ITS ---
HPI History of Present Illness Chief Complaint: Hypertension Informant: patient Onset/Context/Timing Onset: Today Context: Gradual Onset Timing: Continuous Worsened by: Stress Relieved by: Nothing Narrative Narrative: Patient presents with elevated blood pressures that were noticed today. Patient states that her home health nurse checked her blood pressure noted it was 260 systolic. Patient states that her home health nurse told her that she had to come to the emergency department to get this checked out. Patient states she is under a lot of stress at home. Patient states she took her blood pressure medications today as prescribed. Patient denies any chest pain. Patient denies any shortness of breath. Patient denies any nausea or vomiting. [facility] Medical History Arthritis Back problem Barretts esophagus Carpal tunnel syndrome Cataracts, bilateral COPD (chronic obstructive pulmonary disease) Difficulty swallowing Epigastric pain GERD without esophagitis High blood pressure Neuropathy Osteoarthritis Severe esophageal dysplasia Thyroid disease Vision problems Home Medications omeprazole 40 mg capsule,delayed release 40 mg PO 1400 08/10/18 [History Last Taken Unknown] ascorbic acid (vitamin C) 500 mg PO DAILY@0800 08/29/18 [History Last Taken Unknown] cyanocobalamin (vitamin B-12) 1,000 mcg PO DAILY@0800 08/29/18 [History Last Taken Unknown] magnesium 400 mg PO DAILY 08/29/18 [History Last Taken Unknown] rytlwtpfwupl-Hp-fvgp-minerals 1 ea PO DAILY 08/29/18 [History Last Taken Unknown] omega-3 fatty acids-fish oil 1 ea PO DAILY 08/29/18 [History Last Taken Unknown] albuterol sulfate 1 - 2 puff INHALATION Q6H PRN PRN 11/15/18 [History Last Taken Unknown] glucosam 750 mg-chondroi 100 mg-hyalur 1.65 mg-CF borate 108 mg tablet 1 tab PO BID tab 05/31/21 [History Last Taken Unknown] pentoxifylline 400 mg tablet,extended release 400 mg PO DAILY tab 05/31/21 [History Last Taken Unknown] alendronate 35 mg PO QWEEK 11/04/21 [History Last Taken Unknown] hydrochlorothiazide 12.5 mg PO DAILY 11/04/21 [History Last Taken Unknown] labetalol 100 mg PO DAILY #10 tab 11/04/21 [Rx Last Taken Unknown] levothyroxine 100 mcg PO QHS 11/04/21 [History Last Taken Unknown] losartan 50 mg PO DAILY 11/04/21 [History Last Taken Unknown] Allergy/AdvReac Type Severity Reaction Status Date / Time No Known Allergies Allergy Verified 09/01/21 15:26 Family History Mother Diabetes Hypertension Other Arthritis Surgical History History of colonoscopy (~02/24/15) History of esophagogastroduodenoscopy (EGD) (~08/31/17) History of esophagogastroduodenoscopy (EGD) (~09/2018) History of laparoscopic cholecystectomy History of left cataract surgery History of repair of hiatal hernia s/p Lap toupet reflux procedure (~11/19/18) Social History Smoking Status: Never smoker alcohol intake: current alcohol intake frequency: a few times a month substance use type: does not use additional social history: Does Take Aspirin As Needed Does Take Ibuprofen As Needed ROS ROS ED Constitutional Constitutional ED: Denies chills or fever(s) Eyes Eyes: Denies blurry vision or change in vision ENT ENT ED: Denies rhinorrhea or sore throat Cardiovascular Cardiovascular: Denies chest pain or palpitations Respiratory/Chest Respiratory/Chest: Denies cough or dyspnea Gastrointestinal Gastrointestinal: Denies nausea or vomiting Genitourinary Genitourinary ED: Denies dysuria or hematuria Musculoskeletal Musculoskeletal: Reports back pain; Denies neck pain Integumentary Denies abscess or rash Neurologic Neurologic: Reports paresthesias; Denies headache(s) or weakness Allergic/Immunologic Allergic/Immunologic ED: Denies mouth swelling or urticaria EXAM Physical Exam Const Vital Signs: 11/04/21 16:15 11/04/21 16:18 11/04/21 17:43 Temperature 98.1 F Temperature Source Oral Pulse Rate 74 Respiratory Rate 18 Respiratory Effort Normal Non-Labored Respiratory Pattern Normal Blood Pressure 187/79 H 170/65 H Blood Pressure Mean 115 100 Pulse Ox 94 Oxygen Delivery Method Room Air 11/04/21 18:20 Temperature Temperature Source Pulse Rate Respiratory Rate Respiratory Effort Respiratory Pattern Blood Pressure 159/84 H Blood Pressure Mean 109 Pulse Ox Oxygen Delivery Method Positive well nourished and well developed General Appearance ED: well developed and NAD HEENT Reports moist mucous membranes Neck supple and no JVD Resp normal respiratory effort and clear to auscultation bilaterally Cardio regular rate, regular rhythm and no murmurs GI normal to inspection, nondistended, normoactive bowel sounds and non-tender Palpation: soft Extremity normal to inspection General Extremety ED: Negative for edema or tenderness General Extremity: Negative for edema Neuro oriented x3, CN's II-XII intact bilaterally and no sensory deficits noted Sensorium / Orientation: alert Motor Exam: strength 5/5 throughout Psych mental status grossly normal Skin no rashes or lesions noted MDM MDM MDM Narrative Medical decision making narrative: Patient was given a dose of labetalol here. EKG was obtained. On my interpretation, it showed a sinus bradycardia with a rate of 58. NV interval, QRS interval, and QTc intervals were all normal. [place] was normal. There are no acute ST or T wave changes. Portable 1 view chest x- ray was obtained. On my interpretation, lung whelan are clear. There is normal cardiac silhouette. Bony thorax is normal. There is no acute process noted. Radiologist also interpreted the x-ray and agrees. CBC and comprehensive metabolic profile were obtained were within normal limits. High-sensitivity troponin was normal. Patient's blood pressure improved to 159/84. Case was discussed with Dr. Becker who was covering for Dr. Crandall. She recommended starting the patient on labetalol in addition to her other blood pressure medications. Patient was given a prescription for this. Patient was instructed to follow-up with Dr. Crandall in 3 to 5 days. Patient was instructed return if worse in any way. Patient understood and was agreeable with the plan. All questions were answered. Lab Data Attestation: I reviewed the patient's lab results. Labs: Laboratory Results - last 24 hr 11/04/21 11/04/21 16:50 16:50 WBC 5.9 RBC 3.90 L Hgb 12.4 Hct 36.6 L MCV 93.8 MCH 31.8 MCHC 33.9 RDW Std Deviation 38.1 RDW Coeff of Kylie 11.3 L Plt Count 250 MPV 9.0 Immature Gran % (Auto) 0.200 Neut % (Auto) 65.3 Lymph % (Auto) 24.5 Amelia % (Auto) 7.4 Eos % (Auto) 1.9 Baso % (Auto) 0.7 Absolute Neuts (auto) 3.9 Absolute Lymphs (auto) 1.45 Nucleated RBC % 0 Sodium 133 L Potassium 3.9 Chloride 101 Carbon Dioxide 26.0 Anion Gap 6 BUN 17 Creatinine 0.92 Estim Creat Clear Calc 43.71 Est GFR (MDRD) Af Amer 76 Est GFR (MDRD) Non-Af 63 BUN/Creatinine Ratio 18.4 Glucose 96 Calcium 8.7 Total Bilirubin 0.50 AST 28 ALT 19 Alkaline Phosphatase 78 Troponin I High Sens 10 Total Protein 6.9 Albumin 3.4 Globulin 3.5 Albumin/Globulin Ratio 1.0 Radiography Chest X-Ray - ED: 1 View, Read by ED Physician, Read by Radiologist, Normal and No Acute Disease Diagnostic Testing: Clinical Impression(s) from Imaging Studies Chest X-Ray 11/04/21 17:05 IMPRESSION: Normal x-ray examination of the chest. Electronically Signed: Aditya Rodriguez DO at 17:25 EDT Reading Location ID and State: [facility] / [place] Tel [phone], Service support , Discharge Plan Triage Chief Complaint: Hypertension ED Provider: Rey Martin Dx/Rx/DC Orders Clinical Impression: High blood pressure Instructions: ED Hypertension, Established Prescriptions: New labetalol 100 mg tablet 100 mg PO DAILY Qty: 10 RF: 0 No Action omeprazole 40 mg capsule,delayed release(DR/EC) 40 mg PO 1400 RF: 0 pentoxifylline 400 mg tablet extended release 400 mg PO DAILY RF: 0 Move Free [facility] 750 mg-100 mg- 1.65 mg-108 mg tablet 1 tab PO BID RF: 0 cyanocobalamin (vitamin B-12) 500 MCG tablet 1,000 mcg PO DAILY@0800 RF: 0 ascorbic acid (vitamin C) 500 MG tablet 500 mg PO DAILY@0800 RF: 0 magnesium 250 MG tablet 400 mg PO DAILY RF: 0 gybaiaqckgpl-Ss-gvsw-minerals 1 EACH tablet 1 ea PO DAILY RF: 0 omega-3 fatty acids-fish oil 1 EACH capsule 1 ea PO DAILY RF: 0 albuterol sulfate 1 PUFF inhaler 1 - 2 puff inhalation Q6H PRN PRN (Reason: COPD) RF: 0 losartan 50 mg Tablet 50 mg PO DAILY RF: 0 levothyroxine 100 mcg Tablet 100 mcg PO QHS RF: 0 hydrochlorothiazide 12.5 mg Tablet 12.5 mg PO DAILY RF: 0 alendronate 35 mg Tablet 35 mg PO QWEEK RF: 0 Primary Care Provider: Yashira Crandall Referrals: Yashira Crandall DO [Primary Care Provider] - 3-5 Days Disposition Disposition: Home, Self Care
[2021-11-04] MEDS: Labetalol (Prefilled) 20 MG/4 ML 10 MG IV (16:49)
[2021-11-04 17:00] LABS: Absolute Lymphocyte Count 1.45 X10^3/uL (0.83-4.51); Absolute Neutrophil Count 3.9 X10^3/uL (2.0-7.7); Basophil# 0.04 X10^3/uL; Basophil% 0.7 % (0-1); Eosinophil# 0.11 X10^3/uL; Eosinophils% 1.9 % (0-5); Hematocrit 36.6 % (37-47); Hemoglobin 12.4 g/dL (12.0-15.0); Lymphocyte # 1.45 X10^3/ul (0.83-4.51); Lymphocyte % 24.5 % (19-41); Mean Corp Hgb Conc 33.9 g/dL (32-36); Mean Corpuscular Hgb 31.8 pg (27.0-32.0); Mean Corpuscular Volume 93.8 fL (81-99); Monocyte# 0.44 X10^3/uL; Monocyte% 7.4 % (0-10); NRBC Flagged by Analyzer 0 % (0-5); Neutrophil # 3.88 X10^3/uL (2.7-7.7); Neutrophil % 65.3 % (47-70); Platelet Count 250 K/mm3 (150-450); RBC Distribution Width CV 11.3 % (11.6-14.6); RBC Distribution Width SD 38.1 fl (35.1-43.9); White Blood Count 5.9 K/mm3 (4.4-11.0)
--- NOTE | 2021-11-04 17:05 | RAD_ITS ---
STUDY: X-RAY CHEST REASON FOR EXAM: Female, 75 years old. Hypertension TECHNIQUE: Frontal view COMPARISON: None. FINDINGS: The lungs are clear and expanded. There is no demonstrated pleural abnormality. Normal size heart. Normal mediastinum and kathy. Normal visualized pulmonary arteries. Calcified aortic arch and descending thoracic aorta. Degenerative changes and scoliosis of the thoracic spine. Normal visualized ribs, clavicles, and shoulders. There is no demonstrated abnormality of the visualized soft tissue structures of the upper abdomen. RAD/Chest 1 View (Portable) IMPRESSION: Normal x-ray examination of the chest. Electronically Signed: Aditya Rodriguez DO at 17:25 EDT ,
[2021-11-04 17:22] LABS: AST(SGOT) 28 U/L (15-37); Alanine Aminotransfer ALT/SGPT 19 U/L (13-56); Albumin, Serum 3.4 g/dL (3.2-5.0); Alkaline Phosphatase 78 U/L (45-117); Anion Gap 6 (5-15); BUN 17 mg/dL (7-18); BUN/Creat Ratio 18.4 RATIO (10-20); Calcium,Total 8.7 mg/dL (8.5-10.1); Chloride 101 mmol/L (98-107); Creatinine, Serum 0.92 mg/dL (0.55-1.02); EST Glomerular Filtration Rate 63 mL/min (>60); Est Glom Filt Rate - Afr Amer 76 mL/min (>60); Estimated Creatinine Clearance 43.71 ml/min; Globulin 3.5 g/dL (2.2-4.2); Glucose 96 mg/dL (74-106); Potassium 3.9 mmol/L (3.5-5.1); Protein, Total 6.9 g/dL (6.4-8.2); Sodium Level 133 mmol/L (136-145); Troponin-I HS 10 pg/mL (3.0-54.0)
[2021-11-04 17:43] VITALS: BP 170/65
[2021-11-04 18:20] VITALS: BP 159/84
--- NOTE | 2021-11-04 18:28 | ED.RN ---
PER DR. NOBLE, HOLD LABETOLOL DUE TO RECENT BLOOD PRESSURE. 159/84
--- NOTE | 2021-11-05 14:04 | CM.ED ---
ER RNCM DC F/u Call: Called patient's listed number and states that she is feeling better, states had a wellness check up with a nurse from her health insurance when her BP was noted high despite taking her medications. Does not have a BP machine, is on a fixed income. Discussed CCN and patient agreeable to program if this data analyst report writer can place an order encounter after ER DC. Has a f/u appointment with PCP Raz on Monday11/08/2021. States will go over her medications with the provider as what the nurse is stating she should be taking for pain and electrolyte supplement is different than what her PCP is stating. Aware will check with manager programming re: CCN referral capabilities and if able will place one. CECILY Turpin
--- NOTE | 2021-11-11 11:22 | CCN.REFER ---
CCN REFERRAL PER T/C PATIENT WANTS TO HOLD OFF ON CCN AT THIS TIME. LONG TIME SPENT EDUCATING PATIENT THAT THE ADDED EYES ON HER WOULD BE BENEFICIAL. PATIENT IS GOING TO THINK ABOUT IT AND CALL THIS RN BACK IF CHANGES MIND.
== END 2021-11-04 18:41 | disposition home or self-care (01) ==
PROVIDERS: Emergency Provider Emergency Medicine; PCP Internal Medicine; Visit Provider Emergency Medicine
DX: R03.0 Elevated blood-pressure reading, without diagnosis of hypertension (principal); J44.9 Chronic obstructive pulmonary disease, unspecified; K21.9 Gastro-esophageal reflux disease without esophagitis; M19.90 Unspecified osteoarthritis, unspecified site; Z79.899 Other long term (current) drug therapy
CPT/HCPCS: 71045; 80053; 84484; 85025; 93005; 96374; 99285; A4216

== ENCOUNTER → 2022-01-19 | Outpatient (CLI) | payer MEDICARE, SELFPAY ==
--- NOTE | 2022-01-19 16:58 | MRI_ITS ---
STUDY: MRI LEFT KNEE REASON FOR EXAM: Anterior left knee pain and popping. TECHNIQUE: Standardized fat and water weighted pulse sequences were obtained in all 3 orthogonal planes. COMPARISON: Radiographs 09/01/2021. FINDINGS: Although there is image degradation secondary to patient motion, there is still significant diagnostically useful information available from this examination. Normal medial meniscus. Normal hyaline cartilage of the medial femorotibial compartment. Normal medial femoral condyle and tibial plateau. Normal medial collateral ligamentous complex (MCL). There is an enthesophyte of the medial femoral condyle at the origin of the medial collateral ligament (proton-density coronal image 18). Normal distal semimembranosus, gracilis and semitendinosus tendons. Normal lateral meniscus. Normal hyaline cartilage of the lateral femorotibial compartment. Normal lateral femoral condyle and tibial plateau. Normal proximal tibiofibular articulation. Normal lateral collateral (fibular) ligament. Normal popliteus tendon. Normal biceps femoris tendon. Normal anterior cruciate ligament (ACL). Normal posterior cruciate ligament (PCL). Normal congruent patellofemoral articulation. There is intermediate grade chondromalacia patellae (T2 axial image 10). Normal medial and lateral patellar retinaculum. Normal visualized quadriceps tendon. Normal patellar tendon. Normal Hoffa''s fat pad. There is a minimal volume of fluid in the knee joint. There is mild edema in the anterior subcutis adipose space. The otherwise visualized osseous structures are unremarkable. MRI/Lower Ext Joint Only (Routine) IMPRESSION: Chondromalacia patellae. No demonstrated meniscal tear. Electronically Signed: Watson Mcdonald MD at 7:28 EDT ,
== END | disposition home or self-care (01) ==
LOC: MRI 16:58
PROVIDERS: Visit Provider Orthopaedic Surgery
DX: M25.562 Pain in left knee (principal)
CPT/HCPCS: 73721

== ENCOUNTER → 2022-01-20 | Outpatient (CLI) | payer MEDICARE, SELFPAY ==
--- NOTE | 2022-01-20 08:52 | VDLE_ITS ---
Reason For Study: Pain, swelling RIGHT LEFT CFV is compressible, spontaneous, phasic, CFV is compressible, spontaneous, phasic, competent and demonstrates normal competent, and demonstrates normal augmentation. augmentation. FV is compressible, spontaneous, phasic, FV is compressible, spontaneous, phasic, competent and demonstrates normal competent and demonstrates normal augmentation. augmentation. POP V is compressible, spontaneous, phasic, POP V is compressible, spontaneous, phasic, competent and demonstrates normal competent and demonstrates normal augmentation. augmentation. T/P Trunk is compressible. T/P Trunk is compressible. PTV is compressible. PTV is compressible. RT PerV is compressible. LT PerV is compressible. SFJ is competent and measures 0.52 x 0.57 cm. SFJ is competent and measures 0.66 x 0.73 cm. GSV proximal thigh measures 0.33 x 0.34 cm. GSV proximal thigh measures 0.25 x 0.27 cm. GSV at knee measures 0.22 x 0.22 cm. GSV at knee measures 0.27 x 0.28 cm. GSV is competent throughout. GSV is competent throughout. ASV at knee is INCOMPETENT for greater than ASV mid calf is INCOMPETENT for greater than 0.5 seconds and measures 0.20 x 0.20 cm. 0.5 seconds and measures 0.19 x 0.19 cm. ASV proximal calf is INCOMPETENT for greater SSV at junction is competent and measures than 0.5 seconds and measures 0.16 x 0.16 cm. 0.14 x 0.15 cm. SSV at junction is competent and measures 0.19 x 0.19 cm. Procedure This is a venous duplex using B-mode, color flow and spectral Doppler. Exam performed in department. VL/Venous Duplex US - Blade Extrem Interpretation Summary Deep veins of the lower extremities are bilaterally patent and compressible seg mentally. There is no evidence of deep vein thrombosis on either side. Valvular competence appears in tact within the proximal deep venous systems bilaterally. The great saphenous veins appear bila terally patent and compressible segmentally. Sapheno-femoral junctions are bilaterally competent . Valvular competence appears to be intact segmentally within the great saphenous veins bilaterally. Small saphenous veins are patent and competent bilaterally. The accessory saphenous vein at the level of the right knee is incompetent. The accessory saphenous vein in the right proximal calf is incompe tent. The accessory saphenous vein in the left mid-calf is incompetent. Ordering Physician: Familia Olivares Referring Physician: Antonia Louis M.D. Performed By: Melba Gallegos RVT
--- NOTE | 2022-01-20 08:52 | ART_ITS ---
Reason For Study: PAD Procedure A bilateral lower extremity continuous wave Doppler with analog waveform analysis,segmental pressures,and ankle brachial indexes without exercise. Left Segmental Pressures Left brachial= 153mmHg. Left posterior tibial artery = 172mmHg. Left dorsalis pedis artery = 171mmHg. Left digit = 143 mmHg. The left dorsalis pedis waveforms are triphasic. The left posterior tibial artery waveforms are triphasic. Right Segmental Pressures Right brachial= 143mmHg. Right posterior tibial artery = 166mmHg. Right dorsalis pedis artery = 169mmHg. Right digit = 135 mmHg. The right dorsalis pedis waveforms are triphasic. The right posterior tibial artery waveforms are triphasic. Indices The right ankle brachial index by the dorsalis pedis is 1.10. The right ankle brachial index by the posterior tibial artery is 1.08. The right digital-brachial index is 0.88. The left ankle brachial index by the dorsalis pedis is 1.12. The left ankle brachial index by the posterior tibial artery is 1.12. The left digital-brachial index is 0.93. VL/Lower Ext Art Exam w/o Exercis Interpretation Summary Triphasic Doppler waveforms are noted at ankle level bilaterally. Pulse-volume recordings appear satisfactory at all levels bilaterally. Resting ankle-brachial indices are norm al bilaterally. Digital-brachial indices are normal bilaterally. There is no evidence of significant arterial occlusive disease in the lower ext remities bilaterally. Ordering Physician: Familia Olivares Referring Physician: Antonia Louis M.D. Performed By: Melba Gallegos RVT
== END | disposition home or self-care (01) ==
LOC: CVS 08:49
PROVIDERS: Referring Provider Surgery; Visit Provider Surgery
DX: I73.9 Peripheral vascular disease, unspecified (principal); M79.89 Other specified soft tissue disorders; M79.606 Pain in leg, unspecified; I87.2 Venous insufficiency (chronic) (peripheral)
CPT/HCPCS: 93923; 93970

== ENCOUNTER 2022-03-22 10:15 | Observation (INO) | payer MEDICARE, SELFPAY ==
--- NOTE | 2022-03-14 12:49 | EKG12_ITS ---
Test Reason : PREOP Blood Pressure : / mmHG Vent. Rate : 060 BPM Atrial Rate : 060 BPM P-R Int : 150 ms QRS Dur : 060 ms QT Int : 394 ms P-R-T Axes : -04 -08 -05 degrees QTc Int : 394 ms Normal sinus rhythm Low voltage QRS Borderline ECG Confirmed by DEDE BLANCO, TIFF ([id number]), brands editor LILA STEWART ([id number]) on 03/15/2022 9:05:46 AM Referred By: Mynor Melissa Confirmed By:TIFF AGUAYO MD
[2022-03-14 13:44] LABS: Absolute Lymphocyte Count 0.98 X10^3/uL (0.83-4.51); Absolute Neutrophil Count 3.5 X10^3/uL (2.0-7.7); Basophil# 0.02 X10^3/uL; Basophil% 0.4 % (0-1); Eosinophil# 0.13 X10^3/uL; Eosinophils% 2.6 % (0-5); Hematocrit 32.8 % (37-47); Hemoglobin 11.3 g/dL (12.0-15.0); Lymphocyte # 0.98 X10^3/ul (0.83-4.51); Lymphocyte % 19.8 % (19-41); Mean Corp Hgb Conc 34.5 g/dL (32-36); Mean Corpuscular Hgb 32.6 pg (27.0-32.0); Mean Corpuscular Volume 94.5 fL (81-99); Mean Platelet Vol. 9.2 fl (6.2-12.0); Monocyte% 6.1 % (0-10); NRBC Flagged by Analyzer 0 % (0-5); Neutrophil # 3.49 X10^3/uL (2.7-7.7); Neutrophil % 70.5 % (47-70); Platelet Count 230 K/mm3 (150-450); RBC Distribution Width CV 11.9 % (11.6-14.6); RBC Distribution Width SD 41.4 fl (35.1-43.9); Red Blood Count 3.47 M/mm3 (4.2-5.4)
[2022-03-14 14:13] LABS: Anion Gap 8 (5-15); BUN 16 mg/dL (7-18); Chloride 105 mmol/L (98-107); EST Glomerular Filtration Rate 57 mL/min (>60); Est Glom Filt Rate - Afr Amer 69 mL/min (>60); Glucose 157 mg/dL (74-106); Sodium Level 137 mmol/L (136-145)
[2022-03-14 14:29] LABS: Magnesium 1.9 mg/dL (1.6-2.6); Thyroid Stim Hormone (TSH) 2.44 uIU/mL (0.358-3.74)
[2022-03-14 23:43] LABS: HIV - WCH Non-Reactive (Nonreactive); Hepatitis B Surface Antibody Non-Reactive; Hepatitis C Antibody Non-Reactive (Nonreactive)
[2022-03-16 10:23] LABS: Hepatitis A AB, Total Negative (Negative)
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
[2022-03-22] VITALS (14 sets, daily range): BP systolic 126–161; BP diastolic 45–107; PULSE 56–88; RESP 16–18; TEMP 36–37.2; O2SAT 96–100; BMI 32.2
[2022-03-22] MEDS: Acetaminophen 500 MG Tablet 1000 MG PO (06:37)
[2022-03-22] MEDS: Lactated Ringers 1,000 ML 15 ML IV ×2 (06:37→08:30)
[2022-03-22] MEDS: Magnesium 2 GM IV (06:37)
[2022-03-22 07:10] LABS: Bedside Glucose 201 mg/dL (74-106)
[2022-03-22] MEDS: Cefazolin 2 GM in 0.9% Normal Saline 100 ML IV (07:35)
--- NOTE | 2022-03-22 08:35 | RAD_ITS ---
INDICATION: LAMINECTOMY, DECOMPRESSION L4-5 EXAMINATION/TECHNIQUE: X-RAY - XR Spine Lumbar 1 View COMPARISON: 05/29/2019. FINDINGS: 2 crosstable lateral views of the lumbar spine were obtained intraoperatively demonstrating localization of the L5-4-5 intervertebral disc level. Degenerative changes of the lumbar spine seen. Decreased intervertebral disc height visualized most prominent at L5-S1. RAD/Spine 1 View Any Level IMPRESSION: Intraoperative x-ray obtained localizing the L4-5 intervertebral disc level. Electronically Signed: Porfirio Seymour MD at 9:00 EDT ,
[2022-03-22] MEDS: THROMBIN (RECOMBINANT) 20,000 UNIT VIAL 20000 UNIT TOPICAL (08:42)
--- NOTE | 2022-03-22 10:21 | OP.PCM_ITS ---
Report of Operation Description of Surgical Findings:: Preoperative diagnosis: Spinal stenosis L4-5 Postoperative diagnosis: The same Procedure: Lumbar laminectomy decompression L4-5 CPT code 18957 Surgeon: Dr. Melissa customer marketing assistant: Subha Malhotra NP Anesthesia: General endotracheal by [facility] EBL: Less than 50 cc Drains: Medium Hemovac Complications: None Procedure: Patient was taken to the OR where she was placed under general endotracheal anesthesia. A Meehan catheter was inserted. Neuro monitoring placed their leads on the patient. We then moved the patient onto the prone position on the Corwin frame. After appropriate positioning with care to protect her bony prominences her genitalia her ulnar nerves of both elbows the brachial plexus bilaterally her cervical spine is facial features the back was prepped and draped in standard fashion. I then made a longitudinal incision centered over L4 5 subcutaneous tissues were incised the length of the skin incision. I then opened the lumbar fascia using cautery to the left of the spinous process and elevated the paravertebral muscles off the lamina for the top of the lamina of L5. An intraoperative x-ray was taken with a marker in place to confirm that we were indeed at the L4-5 level. This was also confirmed by the radiologist. This was marked of course. I then opened the lumbar fascia on the opposite side elevated paravertebral muscles off the lamina the lamina of 4 and the top of the lamina of L5. We then put the self-retaining super slide retractors in place. This gave us good access we then removed the spinous process of L4 using double-action rongeurs picker box operator. I then elevated the ligamentum flavum off the underside of the lamina of L4 and began the laminectomy process with 45 degree Kerrison rongeurs this was done on both sides. Note that I was working from the patient's left side at first. Once the lamina was complete I then began removal of the ligamentum flavum with 45 degree Kerrison rongeurs this was done from the left side thus decompressing the right side. Note that I used cottonoids to place between the dura and the ligamentum flavum and to prevent tear to the dura. This was done repeatedly until the entire ligamentum flavum was removed all the way out to his lateral recess. I then checked the nerve root and the foramen was found to be quite open on the right side. I then moved to the opposite side of the table that is on the patient's right side to decompress her left side. Again we will cottonoids were used to place under the dura and I began removal of the ligamentum flavum all the way out to the lateral recess. The nerve root that is the L5 nerve root was visualized was a found to be free of any pressure we checked the foramen likewise and it was also without pressure. Note that we thoroughly irrigated with copious amounts of sterile saline every 10 to 50 minutes in the course of the case. We then placed amnionic membrane over the exposed dura and placed Gelfoam over the top of this a medium Hemovac was inserted. I then closed the lumbar fascia using [id number] suture with #1 Vicryl. The subcutaneous tissues were closed in layers first with 0 Vicryl in running fashion and then 2- 0 Vicryl in interrupted fashion and finally the skin was approximated using skin clips. Sterile dressings were then applied and the drain was secured. She was then recovered in the OR moved to her hospital bed and taken to recovery in satisfactory condition. This interoperative summary on Laurie Javier. This is Dr. Melissa dictating.
[2022-03-22 11:10] LABS: Bedside Glucose 125 mg/dL (74-106)
[2022-03-22] MEDS: Pantoprazole Sodium 40 MG Tablet PO (13:23)
--- NOTE | 2022-03-22 14:40 | CASEMGMT ---
MAX TRISTAN Assessment: Face to Face with pt for initial transition planning/care coordination assessment. MAX TRISTAN introduced self and role at [facility], pt voices understanding and consents to assessment. Pt is A/O x4 and answers all questions appropriately at this time. Pt sitting up in bed in no distress. Care providers, pharmacy, and demographics verified/updated. Admitting Dx: lumbar laminectomy decompression L4-5 PCP: Missy Specialists:Shin, spine OR; Rahul, ortho; Elise and Selvin, vascular Preferred Pharmacy: [facility] Insurance: [facility] Prescription Benefit: yes LW/HPOA: Pt states she has a LW/DPOA and her DPOA is her sister, Cesilia Villar. She is aware this is not on file at [facility] and she may bring in to be scanned into her chart. LNOK: Cesilia Villar, sister Living Arrangements: Pt lives alone in a two story house with one step to enter. She states she is able to stay on the main floor. Her friend is going to be staying with her until and then another friend will be staying for a short time after. Pt reports she was I in ADL's prior to hospitalization. Transportation: Pt drives self and denies concerns with transportation. Pt friend will transport her until she can drive again. DME/HHC/SNF: Pt typically uses a cane but has a FWW, w/c and BSC available to her. She also has grab bars in her bathroom. Pt is current with [facility] program. Denies HHC or SNF stays. Pt states no concerns with going home at time of dc. Pt states no further concerns/needs. CM to follow. Advised pt to ask CM if any further question/concerns/needs arise, voices understanding. Pt Goal: Home Plan: Home
--- NOTE | 2022-03-22 14:49 | PN.HOSP_ITS ---
Documented by User: Odette Myers NP, CABLE MOCK UP ASSEMBLER-C 03/22/22 15:36 Subjective Subjective Patient seen and examined. Denies pain currently. Denies other symptoms or complaints. Objective Data Objective Data Vital Signs: Vital Signs Temp Pulse Resp BP Pulse Ox O2 Del Method O2 Flow Rate 97.9 F 68 18 154/64 H 100 Nasal Cannula 4 03/22/22 12:30 03/22/22 12:30 03/22/22 12:30 03/22/22 12:30 03/22/22 12:30 03/22/22 12:30 03/22/22 12:30 Oxygen Flow Rate (L/min) 4 Oxygen Delivery Method Nasal Cannula Weight: 182 lb Body Mass Index (BMI) 32.2 Intake & Output: Intake and Output for Last 24 Hours 03/20/22 03/21/22 03/22/22 23:59 23:59 23:59 Intake Total 1214 / 1214 Output Total 3250 / 3250 Balance -2036 / -2036 Lab / Micro Data Result Diagrams: 03/14/22 13:15 03/14/22 13:15 Labs: Laboratory Results - last 24 hr 03/22/22 06:28: POC Glucose 201 H 03/22/22 10:53: POC Glucose 125 H Micro: Microbiology 03/14/22 13:15 Interface Orders Nasal Screen MRSA/MSSA - Final Radiography Diagnostic Testing: Radiology Impression Spine X-Ray 03/22/22 08:35 IMPRESSION: Intraoperative x-ray obtained localizing the L4-5 intervertebral disc level. Electronically Signed: Porfirio Seymour MD at 9:00 EDT , Physical Exam Const alert, oriented x3 and no apparent distress Orientation / Consciousness: awake, oriented to person, oriented to place and oriented to time HEENT normocephalic and moist oral mucous membranes Eyes PERRL, EOMs intact bilaterally and conjunctivae normal Neck no lymphadenopathy Resp normal respiratory effort and clear to auscultation bilaterally Cardio regular rate, regular rhythm and no murmurs Peripheral Pulses: pulses 2+ throughout GI normal to inspection, nondistended, normoactive bowel sounds, non-tender and non-distended Extremity normal to inspection Skin no rashes or lesions noted Lesions: no lesions Rashes: no rashes Trauma: no lacerations or abrasions Neuro CN's II-XII intact bilaterally, no focal motor deficits, no sensory deficits noted and deep tendon reflexes 2+ bilaterally Psych mental status grossly normal and affect normal Assessment & Plan Assessment/Plan (1) High blood pressure: PLAN: Plan 1. Spinal stenosis L4-5 s/p lumbar laminectomy decompression L4-5- management per orthospine. PT/OT. Patient lives alone. Follow PT recommendations for discharge planning. 2. Hypertension-stable, continue home regimen. 3. Hypothyroidism-continue Synthroid regimen. 4. GERD-continue PPI. DVT prophylaxis-per surgery This patient was seen by UMESH Moctezuma under the supervision of Dr. Goldstein. Time spent examining patient, reviewing data and subsequent management of care: 12 minutes Documented by User: Dr. Jules Goldstein MD 03/22/22 16:32 Objective Data Lab / Micro Data Result Diagrams: 03/14/22 13:15 03/14/22 13:15 Assessment & Plan Assessment/Plan (1) High blood pressure: Charges/Coding Addendum Addendum: Addendum: Dr. Goldstein I personally examined the patient and reviewed the chart. I agree with the above. 76-year-old female presents to the hospital for an elective L4-5 laminectomy and decompression. We are consulted for medical management. She has a history of hypertension, and she take labetalol, hydrochlorothiazide, losartan. We will continue with all of her home medications and recheck labs in the morning. We will also continue with her PPI. Also recommend continue with her Synthroid for her hypothyroidism. At this point we will follow peripherally for any lab derangements and issues with vital signs. Otherwise she is currently stable. Clinical time spent on all aspects of patient care: 25 darcy frank Visit Charges OBSV E&M: 02557 Initial observation care L3
[2022-03-22] MEDS: Cefazolin 1 GM/50 ML BAG IV ×2 (17:56→23:23)
[2022-03-22] MEDS: Ensure Surgery 237 ML LIQUID PO (18:03)
[2022-03-22] MEDS: oxyCODONE 5 MG Tablet PO (23:50)
[2022-03-23] MEDS: BENZOCAINE/MENTHOL 1 LOZENGE MUCOUS MEM ×3 (03:21→10:41)
[2022-03-23 03:40] VITALS: BMI 32.2
[2022-03-23 05:34] VITALS: BP 142/69; PULSE 74; RESP 16; TEMP 36.7; O2SAT 99
[2022-03-23] MEDS: Levothyroxine 100 MCG Tablet PO (05:39)
[2022-03-23 06:17] LABS: Absolute Lymphocyte Count 0.91 X10^3/uL (0.83-4.51); Absolute Neutrophil Count 8.7 X10^3/uL (2.0-7.7); Basophil# 0.01 X10^3/uL; Basophil% 0.1 % (0-1); Eosinophil# 0.01 X10^3/uL; Eosinophils% 0.1 % (0-5); Hematocrit 31.9 % (37-47); Hemoglobin 11.2 g/dL (12.0-15.0); Lymphocyte # 0.91 X10^3/ul (0.83-4.51); Lymphocyte % 8.7 % (19-41); Mean Corp Hgb Conc 35.1 g/dL (32-36); Mean Corpuscular Hgb 32.7 pg (27.0-32.0); Mean Platelet Vol. 9.4 fl (6.2-12.0); Monocyte# 0.83 X10^3/uL; Monocyte% 7.9 % (0-10); NRBC Flagged by Analyzer 0 % (0-5); Neutrophil # 8.71 X10^3/uL (2.7-7.7); Neutrophil % 82.8 % (47-70); Platelet Count 240 K/mm3 (150-450); RBC Distribution Width CV 11.7 % (11.6-14.6); RBC Distribution Width SD 39.8 fl (35.1-43.9); Red Blood Count 3.43 M/mm3 (4.2-5.4); White Blood Count 10.5 K/mm3 (4.4-11.0)
[2022-03-23 06:44] LABS: Anion Gap 3 (5-15); BUN 20 mg/dL (7-18); BUN/Creat Ratio 21.4 RATIO (10-20); Calcium,Total 8.6 mg/dL (8.5-10.1); Chloride 102 mmol/L (98-107); Creatinine, Serum 0.94 mg/dL (0.55-1.02); EST Glomerular Filtration Rate 62 mL/min (>60); Est Glom Filt Rate - Afr Amer 75 mL/min (>60); Estimated Creatinine Clearance 42.12 ml/min; Glucose 136 mg/dL (74-106); Potassium 4.1 mmol/L (3.5-5.1); Sodium Level 135 mmol/L (136-145)
[2022-03-23 08:05] VITALS: BP 154/67; PULSE 66; RESP 16; TEMP 36.8; O2SAT 98
[2022-03-23] MEDS: Ensure Surgery 237 ML LIQUID PO ×2 (08:10→12:02)
[2022-03-23 09:02] VITALS: O2SAT 95
--- NOTE | 2022-03-23 10:21 | PCM.PN.HOSP ---
Documented by User: Odette Myers NP, CHIEF VENDOR QUALITY-C 03/23/22 10:26 Subjective Subjective Patient seen and examined. Denies significant pain. Denies other symptoms or complaints. Objective Data Objective Data Vital Signs: Vital Signs Temp Pulse Resp BP Pulse Ox O2 Del Method O2 Flow Rate 98.3 F 66 16 154/67 H 95 Room Air 2 03/23/22 08:05 03/23/22 08:05 03/23/22 08:05 03/23/22 08:05 03/23/22 09:02 03/23/22 09:02 03/22/22 16:35 Oxygen Flow Rate (L/min) 2 Oxygen Delivery Method Room Air Weight: 182 lb Body Mass Index (BMI) 32.2 Intake & Output: Intake and Output for Last 24 Hours 03/21/22 03/22/22 03/23/22 23:59 23:59 23:59 Intake Total 2614 / 2614 400 / 400 Output Total 4310 / 4310 850 / 850 Balance -1696 / -1696 -450 / -450 Lab / Micro Data Result Diagrams: 03/23/22 05:20 03/23/22 05:20 Labs: Laboratory Results - last 24 hr 03/22/22 10:53: POC Glucose 125 H 03/23/22 05:20: WBC 10.5, RBC 3.43 L, Hgb 11.2 L, Hct 31.9 L, MCV 93.0, MCH 32.7 H, MCHC 35.1, RDW Std Deviation 39.8, RDW Coeff of Kylie 11.7, Plt Count 240, MPV 9.4, Immature Gran % (Auto) 0.400, Neut % (Auto) 82.8 H, Lymph % (Auto) 8.7 L, [place] % (Auto) 7.9, Eos % (Auto) 0.1, Baso % (Auto) 0.1, Absolute Neuts (auto) 8.7 H, Absolute Lymphs (auto) 0.91, Nucleated RBC % 0 03/23/22 05:20: Sodium 135 L, Potassium 4.1, Chloride 102, Carbon Dioxide 30.0, Anion Gap 3 L, BUN 20 H, Creatinine 0.94, Estim Creat Clear Calc 42.12, Est GFR (MDRD) Af Amer 75, Est GFR (MDRD) Non-Af 62, BUN/Creatinine Ratio 21.4 H, Glucose 136 H, Calcium 8.6 Micro: Microbiology 03/14/22 13:15 Interface Orders Nasal Screen MRSA/MSSA - Final Physical Exam Const alert, oriented x3 and no apparent distress Orientation / Consciousness: awake, oriented to person, oriented to place and oriented to time HEENT normocephalic and moist oral mucous membranes Eyes PERRL, EOMs intact bilaterally and conjunctivae normal Neck no lymphadenopathy Resp normal respiratory effort and clear to auscultation bilaterally Cardio regular rate, regular rhythm and no murmurs Peripheral Pulses: pulses 2+ throughout GI normal to inspection, nondistended, normoactive bowel sounds, non-tender and non-distended Extremity normal to inspection Skin no rashes or lesions noted Lesions: no lesions Rashes: no rashes Trauma: no lacerations or abrasions Neuro CN's II-XII intact bilaterally, no focal motor deficits, no sensory deficits noted and deep tendon reflexes 2+ bilaterally Psych mental status grossly normal and affect normal Assessment & Plan Assessment/Plan (1) Spinal stenosis at L4-L5 level: PLAN: Plan 1. Spinal stenosis L4-5 s/p lumbar laminectomy decompression L4-5- management per orthospine. PT/OT.? Patient lives alone.? Follow PT recommendations for discharge planning. 2. Hypertension-stable, continue home regimen. 3. Hypothyroidism-continue Synthroid regimen. 4. GERD-continue PPI. DVT prophylaxis-per surgery This patient was seen by Odette Meyrs, ROSANNE-C under the supervision of Dr. Jo. Time spent examining patient, reviewing data and subsequent management of care: 10 minutes Documented by User: Dr. Waqas Jo, 03/23/22 16:47 Objective Data Lab / Micro Data Result Diagrams: 03/23/22 05:20 03/23/22 05:20 Assessment & Plan Assessment/Plan (1) Spinal stenosis at L4-L5 level: Charges/Coding Addendum Addendum: Seen and examined independently of Odette Myers today, she had some minor complaints about basically housekeeping and the nurses aides, he has no complaints of any shortness of breath, chest discomfort, fevers, or chills. On examination she appeared in good health and spirits, she does not appear to be in any distress. Vital signs as documented. Skin warm and dry and without overt rashes. Neck without JVD, thyroid appears normal, trachea is midline, neck is supple. Lungs clear, normal air movement was noted. Heart exam notable for regular rhythm, normal sounds and absence of murmurs, rubs or gallops. Abdomen unremarkable and without evidence of organomegaly, masses, or abdominal aortic enlargement, bowel sounds are present in all 4 quadrants, no abdominal tenderness was noted. Extremities nonedematous, no cyanosis was noted, no clubbing was noted. Neuro: Cranial nerves II through XII are grossly intact, no focal motor deficits were noted, sensation to light touch and pinprick is intact, motor exam 5/5 throughout. Psych: Patient is alert and oriented x3, she does not appear anxious or depressed, she does not appear agitated. Impression: #1 essential hypertension-continue present medications #2 hypothyroidism-patient is on Synthroid #3 esophageal dysplasia-patient is currently on Protonix #4 GERD #6 spinal stenosis L4-L5, PT and OT are seeing patient, orthopedic surgery is participating in her care #7 osteoarthritis-complicates care, recovery, medical care, and prognosis I have reviewed Odette Myers's progress note including her medical assessment and plan of care and with the above additions endorse it. Total clinical time spent by myself addressing the patient's medical issues, reviewing the data, and collaborating with patient's care team: 15 minutes Visit Charges Inpatient E&M: 84329 Subs Hosp L2
--- NOTE | 2022-03-23 10:33 | CASEMGMT ---
MAX CM in to discuss LOPEZ form with patient. RN CM explained LOPEZ form, patient voiced understanding. Pt signed form and filed in chart. Pt provided with a copy of signed LOPEZ form. Patient had no further questions or concerns at this time.
[2022-03-23] MEDS: hydroCHLOROthiazide 12.5mg 12.5 MG PO (10:41)
[2022-03-23] MEDS: Losartan Potassium 50 MG Tablet PO (10:41)
[2022-03-23] MEDS: Labetalol 100 MG Tablet PO (10:41)
[2022-03-23] MEDS: Pentoxifylline 400 MG Tablet PO (10:42)
[2022-03-23 12:30] VITALS: BMI 32.2
[2022-03-23] MEDS: Pantoprazole Sodium 40 MG Tablet PO (14:50)
[2022-03-23 15:16] VITALS: BP 133/60; PULSE 78; RESP 16; TEMP 37.4; O2SAT 97
--- NOTE | 2022-03-23 17:04 | PCM.DC.SUM ---
Providers Date of Admission: 03/22/22 Primary Care Physician: nAtonia Louis MD Consultations 03/22/22 11:38 Consult: Hospitalist Routine Consulting Provider: Rey Cruz Reason for Consult: Medical Management EMERGENT Consult: No MD Notified: Yes Date Notified: 03/22/22 Time Notified: 13:12 Method of Notification: Text Reason For Visit: LUMBAR LAMINECTOMY DECOMPRESSION L4-5 Diagnosis Discharge Diagnosis (1) Spinal stenosis at L4-L5 level: Status: Acute Code(s): M48.061 - Spinal stenosis, lumbar region without neurogenic claudication Medications at Discharge Home Medications qnviengfgoki-Dd-amoz-minerals 1 ea PO DAILY 08/29/18 glucosam 750 mg-chondroi 100 mg-hyalur 1.65 mg-CF borate 108 mg tablet ([employer]) 1 tab PO BID 05/31/21 VITAMIN D 3 500 mg PO DAILY 12/17/21 calcium carbonate 600 mg calcium (1,500 mg) tablet 1,200 mg PO DAILY 12/17/21 cyanocobalamin (vitamin B-12) 500 mcg tablet 5,000 mcg PO DAILY@0800 12/17/21 alendronate 35 mg tablet 35 mg PO QWEEK #12 tabs 01/18/22 gabapentin 300 mg capsule 300 mg PO DAILY #90 caps 01/18/22 hydrochlorothiazide 12.5 mg tablet 12.5 mg PO DAILY #90 tabs 01/18/22 labetalol 100 mg tablet 100 mg PO DAILY #90 tabs 01/18/22 levothyroxine 100 mcg tablet 100 mcg PO QHS #90 tabs 01/18/22 losartan 50 mg tablet 50 mg PO DAILY #90 tabs 01/18/22 omeprazole 40 mg capsule,delayed release 40 mg PO 1400 #90 caps 01/18/22 pentoxifylline 400 mg tablet,extended release 400 mg PO DAILY #90 tabs 01/18/22 magnesium 250 mg PO.IVFORM DAILY 02/08/22 Hospital Course Summary of Care Provided Hospital Course: This patient was mated yesterday on 22 March. She underwent lumbar laminectomy decompression at the L4-5 level. Today's postop day #1. Overall she is doing well and her left leg pain is significantly better than it was. We changed her dressing today and the drain was removed. Incision is dry and healing well. I gave her directions regarding her activities as she goes home. Already has an appointment to see me in the office. We will give her a scription for oxycodone codon acetaminophen. Is the end of discharge summary on Lauriegenet Javier this is Dr. Melissa dictating. Weight / BMI Weight Weight: 182 lb Body Mass Index (BMI) 32.2 ABG / Lab / Microbiology Data Result Diagrams: 03/23/22 05:20 03/23/22 05:20 Laboratory: Laboratory Results - last 24 hr 03/23/22 05:20: WBC 10.5, RBC 3.43 L, Hgb 11.2 L, Hct 31.9 L, MCV 93.0, MCH 32.7 H, MCHC 35.1, RDW Std Deviation 39.8, RDW Coeff of Kylie 11.7, Plt Count 240, MPV 9.4, Immature Gran % (Auto) 0.400, Neut % (Auto) 82.8 H, Lymph % (Auto) 8.7 L, [place] % (Auto) 7.9, Eos % (Auto) 0.1, Baso % (Auto) 0.1, Absolute Neuts (auto) 8.7 H, Absolute Lymphs (auto) 0.91, Nucleated RBC % 0 03/23/22 05:20: Sodium 135 L, Potassium 4.1, Chloride 102, Carbon Dioxide 30.0, Anion Gap 3 L, BUN 20 H, Creatinine 0.94, Estim Creat Clear Calc 42.12, Est GFR (MDRD) Af Amer 75, Est GFR (MDRD) Non-Af 62, BUN/Creatinine Ratio 21.4 H, Glucose 136 H, Calcium 8.6 Microbiology: Microbiology 03/14/22 13:15 Interface Orders Nasal Screen MRSA/MSSA - Final Meaningful Use Info Meaningful Use Diagnoses (Choose all that apply): None applicable Discharge Plan Admission Admit Date/Time: 03/22/22 10:15 Primary Reason for Your Visit: back surgery Attending Provider: Mynor Melissa Primary Care Provider: Antonia Louis Consulting Providers: Jules Goldstein Mark Discharge Orders/Prescriptions Prescriptions: No Action Move Free Joint Health 750 mg-100 mg- 1.65 mg-108 mg tablet 1 tab PO BID calcium carbonate 600 mg calcium (1,500 mg) tablet 1,200 mg PO DAILY VITAMIN D 3 500 mg tablet 500 mg PO DAILY Label Comments: 500 UNITS DAILY yrpjulgvamhd-Pp-kzwe-minerals 1 EACH tablet 1 ea PO DAILY cyanocobalamin (vitamin B-12) 500 mcg tablet 5,000 mcg PO DAILY@0800 magnesium 250 mg tablet 250 mg PO.IVFORM DAILY alendronate 35 mg tablet 35 mg PO QWEEK Qty: 12 3RF Rx Instructions: monday hydrochlorothiazide 12.5 mg tablet 12.5 mg PO DAILY Qty: 90 3RF labetalol 100 mg tablet 100 mg PO DAILY Qty: 90 3RF levothyroxine 100 mcg tablet 100 mcg PO QHS Qty: 90 3RF losartan 50 mg tablet 50 mg PO DAILY Qty: 90 3RF omeprazole 40 mg capsule,delayed release(DR/EC) 40 mg PO 1400 Qty: 90 3RF pentoxifylline 400 mg tablet extended release 400 mg PO DAILY Qty: 90 3RF Rx Instructions: must administer with a meal/food gabapentin 300 mg capsule 300 mg PO DAILY Qty: 90 1RF Other Ambulatory Orders: 12 Lead EKG (Routine) Location: None Selected Ordered By: Dr. Mynor Melissa Referrals / Follow Up: Antonia Louis MD [Primary Care Provider] - Disposition Disposition (needs filled in before D/C Order can be placed): Home, Self Care
[2022-03-23] MEDS: oxyCODONE 5 MG Tablet PO (17:22)
[2022-03-23 19:00] VITALS: BP 132/68; PULSE 78; RESP 18; TEMP 37.2; O2SAT 97
== END 2022-03-23 19:15 | disposition home or self-care (01) ==
LOC: SDC 10:39 → MS3 14:43
PROVIDERS: Anesthesiology; Family Medicine; Admitting Provider Orthopaedic Surgery; Referring Provider Orthopaedic Surgery; Visit Provider Orthopaedic Surgery
PROC: (CPT 63030; principal; 2022-03-22 07:00)
DX: M48.061 Spinal stenosis, lumbar region without neurogenic claudication (principal); J44.9 Chronic obstructive pulmonary disease, unspecified; E03.9 Hypothyroidism, unspecified; I10 Essential (primary) hypertension; K21.9 Gastro-esophageal reflux disease without esophagitis; Z79.899 Other long term (current) drug therapy; Z79.890 Hormone replacement therapy; M19.90 Unspecified osteoarthritis, unspecified site; G62.9 Polyneuropathy, unspecified; Q39.9 Congenital malformation of esophagus, unspecified
CPT/HCPCS: 63047; 00670; 36415; 72020; 80048; 82962; 83735; 84443; 85025; 86703; 86706; 86708; 86803; 87081; 93005; 96365; 96366; 97116; 97162; 97530; 99218; 99251; J7120; G0378; G0463; J2405

== ENCOUNTER 2022-05-31 16:18 | Outpatient (RCR) | payer MEDICARE, SELFPAY | END 2022-05-31 19:00 | disposition home or self-care (01) | LOC: PT 16:18 | DX: M94.262 Chondromalacia, left knee (principal) ==

== ENCOUNTER → 2022-07-04 | Outpatient (CLI) | payer MEDICARE, SELFPAY ==
[2022-07-04 13:10] LABS: Absolute Neutrophil Count 3.3 X10^3/uL (2.0-7.7); Basophil# 0.02 X10^3/uL; Basophil% 0.4 % (0-1); Eosinophil# 0.09 X10^3/uL; Eosinophils% 1.8 % (0-5); Hematocrit 34.6 % (37-47); Hemoglobin 11.6 g/dL (12.0-15.0); Lymphocyte % 24.2 % (19-41); Mean Corp Hgb Conc 33.5 g/dL (32-36); Mean Corpuscular Hgb 31.5 pg (27.0-32.0); Mean Platelet Vol. 9.1 fl (6.2-12.0); Monocyte# 0.34 X10^3/uL; Monocyte% 6.9 % (0-10); NRBC Flagged by Analyzer 0 % (0-5); Neutrophil # 3.29 X10^3/uL (2.7-7.7); Neutrophil % 66.5 % (47-70); Platelet Count 224 K/mm3 (150-450); RBC Distribution Width CV 11.8 % (11.6-14.6); RBC Distribution Width SD 40.8 fl (35.1-43.9); Red Blood Count 3.68 M/mm3 (4.2-5.4)
[2022-07-04 13:42] LABS: ALB/GLOB Ratio 1.1 RATIO (0.9-2.4); AST(SGOT) 23 U/L (15-37); Alanine Aminotransfer ALT/SGPT 17 U/L (13-56); Albumin, Serum 3.4 g/dL (3.2-5.0); Alkaline Phosphatase 64 U/L (45-117); Anion Gap 7 (5-15); BUN 15 mg/dL (7-18); BUN/Creat Ratio 18.2 RATIO (10-20); Calcium,Total 8.9 mg/dL (8.5-10.1); Chloride 102 mmol/L (98-107); Cholesterol 249 mg/dL (200); Creatinine, Serum 0.82 mg/dL (0.55-1.02); EST Glomerular Filtration Rate 72 mL/min (>60); Est Glom Filt Rate - Afr Amer 87 mL/min (>60); Free T3 2.3 pg/mL (2.18-3.98); Globulin 3.1 g/dL (2.2-4.2); Glucose 100 mg/dL (74-106); High Density Lipoprotein 94 mg/dL; Potassium 3.8 mmol/L (3.5-5.1); Protein, Total 6.5 g/dL (6.4-8.2); Sodium Level 136 mmol/L (136-145); T4 Free Direct 1.46 ng/dL (0.76-1.46); Thyroid Stim Hormone (TSH) 1.37 uIU/mL (0.358-3.74); Triglycerides 59 mg/dL; Very Low Density Lipoprotein 12 mg/dL (5-40)
[2022-07-04 13:51] LABS: Vitamin D,25 Hydroxy 59.2 ng/mL
[2022-07-04 14:03] LABS: Hemoglobin A1c 5.4 % (3.8-5.6)
== END | disposition home or self-care (01) ==
LOC: LAB 12:45
PROVIDERS: Visit Provider Internal Medicine
DX: E03.9 Hypothyroidism, unspecified (principal); J44.9 Chronic obstructive pulmonary disease, unspecified; G62.9 Polyneuropathy, unspecified; I10 Essential (primary) hypertension; E07.9 Disorder of thyroid, unspecified
CPT/HCPCS: 36415; 80053; 80061; 82306; 83036; 84439; 84443; 84481; 85025

== ENCOUNTER → 2022-08-11 | Outpatient (CLI) | payer MEDICARE, SELFPAY ==
--- NOTE | 2022-08-11 14:45 | BI_ITS ---
MAMMOGRAPHY - BILATERAL SCREENING REASON FOR EXAM: Female, 76 years old. Routine annual screening examination. PERTINENT HISTORY: Non-contributory. TECHNIQUE: Digital bilateral breast paul (3D mammographic acquisition) in the CC and MLO projections. 2-D mediolateral oblique (MLO) and craniocaudad (CC) views of both breasts were obtained. CAD: Full Field Digital Mammography with Computer Added Detection was performed. COMPARISON: Comparison is made with prior study dated 07/29/2021 and 07/28/2020. FINDINGS: Breast Composition: The breasts are almost entirely fatty. There are no dominant masses or suspicious calcifications. No other significant abnormalities are identified. There has been no significant change since the prior study. BI/SCRN MAMM (CAD)W/PAUL BILAT IMPRESSION: Stable bilateral screening mammogram. Yearly follow-up mammogram recommended. (A) ASSESSMENT CATEGORY: BIRADS Category 1: Negative. A letter regarding these results will be sent to the patient by the facility within 30 days. Approximately 10% of breast cancers are not detected by mammography. A normal mammogram should not delay biopsy of a clinically suspicious abnormality. [id number] Electronically Signed: Haseeb Frias MD at 20:30 EST ,
== END | disposition home or self-care (01) ==
LOC: OPBI 14:43
PROVIDERS: Referring Provider Internal Medicine; Visit Provider Internal Medicine
DX: Z12.31 Encounter for screening mammogram for malignant neoplasm of breast (principal)
CPT/HCPCS: 77063; 77067

== ENCOUNTER 2022-09-05 14:00 | Outpatient (RCR) | payer MEDICARE, SELFPAY ==
--- NOTE | 2022-07-27 15:55 | HP.PTEVAL ---
Patient's Visit Information KAREN HUDSON is a 76 year old F referred to Physical Therapy by Dr. Osvaldo Kay DO with a diagnosis of ITBand Syndrome, DDD of Left Hip, Lumbar Radiculopathy. Date of Evaluation: 07/27/22 Physical Therapist: Tamiko Guerrero DPT - Visit Plan Frequency: 2x /Week Duration: 4 Weeks Plan: Focus on LE and core strength/stabilization- stretching and gentle rolling of ITBand as needed. HEP Given IE: Seated marching, HS stretching and LAQ-added to current HEP - Subjective Patient reports that she had a back operation by Dr. Melissa Mar 22, 2022 and has had trouble with the left leg for over a year now. 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 She has had an MRI and x-ray of her left hip. She saw Dr. Melissa who told her the back pain is from scar tissue and she was referred to pain mgmt. She is now having pain along the lateral aspect of her left knee. It feels like the left leg wants to give out. Went to see Dr. Villa who told her the hip/knee is not the issue its the ITBand. Dr. Melissa told her that her hip is really bad and would probably need replaced. She has never had any of these issues before and now they are all just really bad. 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 She reports that she is very worried about falling. She did have a fall Jul 20 - did not hit her head but landed on her left side. She was able to get herself up from the floor and did not have any injuries except for a bruise. She does exercises and walks as much as possible. She reports that the pain on the outside of her leg is there all the time. Eases: heating pad, alexandra bandage, suave, medication, elevation. Worst: 10/10 Pain is in the lateral thigh and radiates down to the side of the calf- she feels like her legs are stiff and feel heavy. Dr. Melissa was going to give her an injection but he sent her to [facility] instead. When she is very stressed she feels that the pain is worse. She has a nurse that comes from the hospital 1x a week. Had a blood test done and they can't find anything to relate her neuropathy too. She does drive and perform all her ADL's. Sleep: disturbed hard to get comfortable and wakes her up. No change in bowel or bladder- does have some issues at night. She feels that she just does everything slow. She has been using a cane since Apr. PMHx/Meds: see list in chart 07/20/22 updated - Objective Posture: Fh, RS can correct but does not maintain. Gait: antalgic- straight cane- step to gait pattern- slow kalyani-required w/c to get back to tx room. HR/TR: able with UE A SLS: weight shift but unable to SLS and reports pain with WS to the right. Palpation: tender to calf, lateral joint line of the left knee, quad and ITBand to the gluts and into the lumbar spine. ROM: Lumbar limited in all planes by 75% and reports pain, Hip/Knee/Ankle: WFL. Strength: Core: poor, Hip: 4-/5 throughout with pain testing, Knee: 4/5 with pain testing, Ankle: 4+/5. Flex: HS: severe, ITBand: severe, Gastroc: severe. . Balance: see FGA. ROM: WFL. Palpation: not tender. Strength: Ankle: 4+/5, Knee: 4+/5, Hip: 4/5 throughout, Core: fair minus. Flex: HS: moderate, Gastroc: moderate - Balance/Special Test Scores Lower Extremity Functional Score: 21 - Goals Goal 1:: Patient will be I with HEP and progression Goal Time Frame: 4-6 Weeks Goal 2:: Patient will ambulate >300 feet with a normalized gait pattern with LRD Goal Time Frame: 4-6 Weeks Goal 3:: Patient will perform a TUG test in under 20 sec with LRD Goal Time Frame: 4-6 Weeks Goal 4:: Patient will maintain proper posture t/o tx session to demo increased core s/s Goal Time Frame: 4-6 Weeks Goal 5:: Patient will report 80% improvement Goal Time Frame: 4-6 Weeks - Rehabilitation Potential Physical Therapy Diagnosis: Patient presents with hypomobility- she has decreased LE and core strength/stabilization, flex, proprioception and muscular endurance leading to poor posture and increased pain with ADL's Rehabilitation Potential: Fair - Anticipated Interventions Patient/Client Instruction: Educate patient on: Benefits of Fitness Program Therapeutic Exercise to Include: Strength training, Endurance training, Balance training, Coordination, Agility training, Body mechanics, Postural training, Flexibilty training, Gait and locomotor training, Neuromotor development, In an aquatic setting, Dynamic Lumbar Stabilization Thank you for the opportunity to evaluate your patient. For Medicare and Medicare HMO plans, please review the plan of care and approve it. It will need to be FAXED BACK to us at [phone] for Medicare purposes. For Medicare only, by signing this I certify the plan of care. Please let me know if there are questions or concerns regarding this plan of care. Physician Signature: Date:
--- NOTE | 2022-09-05 16:00 | HP.PTREVAL_ITS ---
Dr. Osvaldo Kay, DO, It has been my pleasure to treat KAREN HUDSON over the last 10 visits for ITBand Syndrome, DDD of Left Hip, Lumbar Radiculopathy. Please see the progress note below for an update on the physical therapy plan of care! Subjective: Patient reports that therapy is going well- she saw MD who thinks that she may need a hip replacement. She does feel that the PT has helped. She feels that she is 40% better. Jul 20 she had a fall and landed on her right hip. Sometimes the left leg feels that she may give out. She doesn't take a full stride with right leg- she has popping on the lateral aspect of the knee. She has been taking meds for depression and anxiety. She is having an MRI on her back next week and an EMG. She saw pain mgmt last week and they did not have it done due to insurance. Objective/Function: No significant change since IE: Posture: FH, RS can correct but does not maintain. Gait: antalgic- straight cane- step to gait pattern- slow kalyani-required w/c to get in/out of clinic. HR/TR: able with UE A SLS: weight shift but unable to SLS Palpation: tender to calf, lateral joint line of the left knee, quad and ITBand to the gluts and into the lumbar spine. ROM: Lumbar limited in all planes by 75% and reports pain, Hip/Knee/Ankle: WFL. Strength: Core: poor, Hip: 4-/5 throughout with pain testing, Knee: 4/5 with pain testing, Ankle: 4+/5. Flex: HS: severe, ITBand: severe, Gastroc: severe. . Balance: see FGA. ROM: WFL. Palpation: not tender. Strength: Ankle: 4+/5, Kn ee: 4+/5, Hip: 4/5 throughout, Core: fair minus. Flex: HS: moderate, Gastroc: moderate Plan Plan: 09/05/22: Hold per pt request- she will follow up after her tests. Focus on LE and core strength/stabilization- stretching and gentle rolling of ITBand as needed. HEP Given IE: Seated marching, HS stretching and LAQ-added to current HEP Balance/Gait/Functional tests - Balance/Special Test Scores Oswestry Low Back Score: 34 Lower Extremity Functional Score: 21 Goals Goal 1:: Patient will be I with HEP and progression Goal Time Frame: 4-6 Weeks Goal Progress: Progressing Goal 2:: Patient will ambulate >300 feet with a normalized gait pattern with LRD Goal Time Frame: 4-6 Weeks Goal Progress: Not Progressing Goal 3:: Patient will perform a TUG test in under 20 sec with LRD Goal Time Frame: 4-6 Weeks Goal Progress: Not Progressing Goal 4:: Patient will maintain proper posture t/o tx session to demo increased core s/s Goal Time Frame: 4-6 Weeks Goal Progress: Not Progressing Goal 5:: Patient will report 80% improvement Goal Time Frame: 4-6 Weeks Goal Progress: Not Progressing Anticipated Interventions Patient/Client Instruction: Educate patient on: Benefits of Fitness Program Therapeutic Exercise to Include: Strength training, Endurance training, Balance training, Coordination, Agility training, Body mechanics, Postural training, Flexibilty training, Gait and locomotor training, Neuromotor development, In an aquatic setting, Dynamic Lumbar Stabilization Please do not hesitate to contact me at [phone] by phone or if you have questions or concerns regarding this new plan of care! Sincerely, Tamiko Guerrero DPT
== END 2022-09-05 19:00 | disposition home or self-care (01) ==
LOC: PT 14:00
PROVIDERS: Referring Provider Orthopaedic Surgery; Visit Provider Orthopaedic Surgery
DX: M76.32 Iliotibial band syndrome, left leg (principal); M16.12 Unilateral primary osteoarthritis, left hip; M54.17 Radiculopathy, lumbosacral region
CPT/HCPCS: 97110; 97162; 97164

== ENCOUNTER → 2022-09-07 | Outpatient (CLI) | payer MEDICARE, SELFPAY ==
--- NOTE | 2022-09-07 15:07 | NEURO ---
NCS and/or EMG Patient Report Ordering Doctor: Antonia Louis DATE OF SERVICE: 09/07/22 Laurie presents for electrodiagnostic testing of the lower limbs. She reports pain and numbness in both legs. She has a history of back surgery. Electrodiagnostic findings: Peroneal motor nerve demonstrates normal distal latency with reduced amplitude and normal conduction velocity on the left side. Right peroneal motor nerve demonstrates normal distal latency with reduced amplitude and borderline reduced conduction velocity. Tibial motor responses are within normal limits. Prolonged left peroneal F-wave. Prolonged H reflex bilaterally. On needle EMG, motor units of increased amplitude and duration noted bilaterally in the tibialis anterior and peroneus longus. No denervation noted in the lumbar paraspinals. Electrodiagnostic impression: This is an abnormal study in the lower limbs 1. 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 2. Electrodiagnostic evidence is noted for lumbosacral radiculopathy.
== END | disposition home or self-care (01) ==
LOC: PSN 12:31
PROVIDERS: Referring Provider Internal Medicine; Visit Provider Internal Medicine
DX: M51.16 Intervertebral disc disorders with radiculopathy, lumbar region (principal)
CPT/HCPCS: 95886; 95912

== ENCOUNTER → 2022-09-16 | Outpatient (CLI) | payer MEDICARE, SELFPAY ==
--- NOTE | 2022-09-16 16:22 | MRI_ITS ---
EXAM: MR LUMBAR SPINE WITHOUT AND WITH INTRAVENOUS CONTRAST CLINICAL INDICATION: Hx L4-5 laminectomy (04/11), increased LBP/gait D/O TECHNIQUE: Multiplanar and multisequence MR images of the lumbar spine without and with intravenous contrast. This report was created using [employer] report [employer] technology. CONTRAST: 15 CC IV CLARISCAN COMPARISON: X-ray 05/29/2019. FINDINGS: VERTEBRAE: Unremarkable. Vertebral body heights are preserved. Normal vertebral bodies and posterior elements. Normal alignment. No spondylolisthesis. There is preservation of the normal lumbar lordosis. SPINAL CORD: Unremarkable. Normal position and signal intensity of the conus medullaris. SOFT TISSUES: Unremarkable. DISCS/SPINAL CANAL/NEURAL FORAMINA: No demonstrated fracture. Vertebral bodies are normal in height. T12-L1: Disc dehydration. Normal bilateral facet joints. Normal central canal. Normal bilateral lateral recesses. Normal intervertebral neural foramina. L1-2: Disc dehydration. Normal bilateral facet joints. Normal central canal. Normal bilateral lateral recesses. Normal intervertebral neural foramina. L2-3: Disc dehydration and mild disc space narrowing. 3 mm degenerative retrolisthesis. Mild, noncompressive spondylotic bar. No canal stenosis. Mild foraminal encroachment due to spurring. L3-4: Disc dehydration and mild disc space narrowing. 3 mm degenerative retrolisthesis. Noncompressive spondylotic bar. No canal stenosis. Mild facet hypertrophy. Moderate right foraminal stenosis due to spurring. L4-5: Disc dehydration and mild disc space narrowing. 2 mm degenerative retrolisthesis. Moderate spondylotic bar. Mild canal stenosis predominantly in the transverse dimension due to moderate spondylosis and moderate facet hypertrophy. There is effacement of the lateral recesses, greater on the left. Foraminal stenosis is mild on the left and moderate on the right due to spurring. Prior laminectomy. Enhancing granulation tissue is noted in the laminectomy defect and lateral spinal canal bilaterally. There is effacement of the thecal sac bilaterally, predominantly due to facet hypertrophy. However, granulation tissue is contributory. L5-S1: Marked disc space narrowing. 3 mm degenerative retrolisthesis. Mild canal stenosis due to mild spondylotic bar, mild facet hypertrophy and short pedicles. Foraminal stenosis is mild on the right and moderate on the left due to spurring. MRI/Spine Lumbar W/WO Contrast IMPRESSION: Mild L4-5 canal stenosis predominantly due to facet hypertrophy. Spondylosis and enhancing scar or granulation tissue are contributory. Mild multilevel listhesis. Moderate foraminal stenosis from L3-4 through L5-S1. Electronically Signed: Jackie Saini MD at 20:01 EST Reading Location ID and State: [id number] / Tel , Service support ,
[2022-09-16 17:00] LABS: CREATININE FINGERSTICK < 0.9 mg/dL (0.55-1.02); EGFR FINGERSTICK > 60.0000 mL/min (>60)
== END | disposition home or self-care (01) ==
PROVIDERS: Referring Provider Psychiatry & Neurology Neurology; Visit Provider Psychiatry & Neurology Neurology
DX: Z01.812 Encounter for preprocedural laboratory examination (principal)
CPT/HCPCS: 72158; A9575

== ENCOUNTER → 2023-01-05 | Outpatient (CLI) | payer MEDICARE, SELFPAY ==
[2023-01-05 15:51] LABS: Absolute Lymphocyte Count 1.23 X10^3/uL (0.83-4.51); Absolute Neutrophil Count 4.8 X10^3/uL (2.0-7.7); Basophil# 0.04 X10^3/uL; Basophil% 0.6 % (0-1); Eosinophil# 0.14 X10^3/uL; Eosinophils% 2.1 % (0-5); Hematocrit 37.3 % (37-47); Hemoglobin 12.3 g/dL (12.0-15.0); Lymphocyte # 1.23 X10^3/ul (0.83-4.51); Lymphocyte % 18.5 % (19-41); Mean Corpuscular Hgb 32.4 pg (27.0-32.0); Mean Corpuscular Volume 98.2 fL (81-99); Mean Platelet Vol. 9.5 fl (6.2-12.0); Monocyte# 0.44 X10^3/uL; Monocyte% 6.6 % (0-10); NRBC Flagged by Analyzer 0 % (0-5); Neutrophil # 4.79 X10^3/uL (2.7-7.7); Neutrophil % 71.9 % (47-70); Platelet Count 263 K/mm3 (150-450); RBC Distribution Width CV 12.3 % (11.6-14.6); RBC Distribution Width SD 44.8 fl (35.1-43.9); White Blood Count 6.7 K/mm3 (4.4-11.0)
[2023-01-05 16:08] LABS: Vitamin B12 1928 pg/mL (211-911); Vitamin D,25 Hydroxy 46.2 ng/mL
[2023-01-05 16:12] LABS: ALB/GLOB Ratio 1.2 RATIO (0.9-2.4); AST(SGOT) 31 U/L (15-37); Alanine Aminotransfer ALT/SGPT 22 U/L (13-56); Albumin, Serum 3.5 g/dL (3.2-5.0); Alkaline Phosphatase 70 U/L (45-117); Anion Gap 7 (5-15); BUN 26 mg/dL (7-18); BUN/Creat Ratio 30.2 RATIO (10-20); Chloride 106 mmol/L (98-107); Cholesterol 248 mg/dL (200); Creatinine, Serum 0.86 mg/dL (0.55-1.02); EST Glomerular Filtration Rate 68 mL/min (>60); Est Glom Filt Rate - Afr Amer 82 mL/min (>60); Free T3 2.4 pg/mL (2.18-3.98); Glucose 95 mg/dL (74-106); High Density Lipoprotein 98 mg/dL; Magnesium 2.3 mg/dL (1.6-2.6); Potassium 4.5 mmol/L (3.5-5.1); Protein, Total 6.5 g/dL (6.4-8.2); Sodium Level 140 mmol/L (136-145); T4 Free Direct 1.36 ng/dL (0.76-1.46); Thyroid Stim Hormone (TSH) 2.14 uIU/mL (0.358-3.74); Triglycerides 69 mg/dL; Very Low Density Lipoprotein 14 mg/dL (5-40)
[2023-01-05 16:22] LABS: Hemoglobin A1c 5.3 % (3.8-5.6)
== END | disposition home or self-care (01) ==
LOC: BIMLAB 12:18
PROVIDERS: PCP Internal Medicine; Referring Provider Internal Medicine; Visit Provider Internal Medicine
DX: K22.70 Barrett's esophagus without dysplasia (principal); J44.9 Chronic obstructive pulmonary disease, unspecified; G62.9 Polyneuropathy, unspecified; G57.90 Unspecified mononeuropathy of unspecified lower limb; E03.9 Hypothyroidism, unspecified; M94.262 Chondromalacia, left knee; I10 Essential (primary) hypertension; E07.9 Disorder of thyroid, unspecified
CPT/HCPCS: 36415; 80053; 80061; 82306; 82607; 83036; 83735; 84439; 84443; 84481; 85025

== ENCOUNTER 2023-02-15 17:36 | Emergency (ER) | payer MEDICARE, SELFPAY ==
[2023-02-15 17:37] VITALS: BP 139/76; PULSE 78; RESP 16; TEMP 36.6; O2SAT 99; BMI 28.8
--- NOTE | 2023-02-15 18:23 | EDS_ITS ---
HPI History of Present Illness Chief Complaint: Edema Detail of Chief Complaint: Lower extremity edema Informant: patient Narrative Narrative: Patient presents secondary to lower extremity edema and her orthopedic surgeon wanted her to be evaluated for DVT. She underwent vein surgery in her legs that finished in December. She had a left hip replacement on January 24. She states that she misunderstood her discharge instructions and has not been taking the low-dose aspirin that was recommended for her. She saw her surgeon today in follow-up and states that the wound itself is healing well. Due to the edema noted in her legs he did want her to have an ultrasound of her legs. Patient denies chest pain or shortness of breath. [facility] Medical History (Updated 02/15/23 @ 20:[address] Dalia Calles MD) Ambulates with cane Arthritis Back problem Barretts esophagus Carpal tunnel syndrome Cataracts, bilateral Chronic pain COPD (chronic obstructive pulmonary disease) Difficulty swallowing Epigastric pain GERD without esophagitis High blood pressure Neuropathy Osteoarthritis Poor balance Severe esophageal dysplasia Thyroid disease Vision problems Wears glasses Home Medications hzjxfliqerrq-Ph-uobn-minerals 1 ea PO DAILY 08/29/18 [History Last Taken Unknown] glucosam 750 mg-chondroi 100 mg-hyalur 1.65 mg-CF borate 108 mg tablet ([employer]) 1 tab PO BID 05/31/21 [History Last Taken Unknown] VITAMIN D 3 500 mg PO DAILY 12/17/21 [History Last Taken Unknown] calcium carbonate 600 mg calcium (1,500 mg) tablet 1,200 mg PO DAILY 12/17/21 [History Last Taken Unknown] cyanocobalamin (vitamin B-12) 500 mcg tablet 5,000 mcg PO DAILY@0800 12/17/21 [History Last Taken Unknown] levothyroxine 100 mcg tablet 100 mcg PO QHS #90 tabs 01/18/22 [Rx Last Taken Unknown] omeprazole 40 mg capsule,delayed release 40 mg PO 1400 #90 caps 01/18/22 [Rx Last Taken Unknown] magnesium 250 mg PO.IVFORM DAILY 02/08/22 [History Last Taken Unknown] Right wrist splint #1 ea 08/23/22 [Rx Last Taken Unknown] meloxicam 7.5 mg tablet 7.5 mg PO BID PRN Muscle/joint pain #60 tabs 08/24/22 [Rx Last Taken Unknown] omega-3 fatty acids 1,250 mg PO DAILY 10/12/22 [History Last Taken Unknown] hydrochlorothiazide 12.5 mg tablet 12.5 mg PO DAILY #90 tabs 12/30/22 [Rx Last Taken Unknown] labetalol 100 mg tablet 100 mg PO DAILY #90 tabs 12/30/22 [Rx Last Taken Unknown] losartan 50 mg tablet 50 mg PO DAILY #90 tabs 12/30/22 [Rx Last Taken Unknown] gabapentin 300 mg capsule 300 mg PO DAILY PRN 01/04/23 [History Last Taken Unknown] oxybutynin chloride 5 mg tablet 5 mg PO QHS PRN 01/04/23 [History Last Taken Unknown] tumeric PO 01/04/23 [History Last Taken Unknown] pentoxifylline 400 mg tablet,extended release 400 mg PO DAILY #30 tabs 01/27/23 [Rx Last Taken Unknown] Allergy/AdvReac Type Severity Reaction Status Date / Time No Known Allergies Allergy Verified 02/15/23 17:37 Family History Mother Diabetes Hypertension Arthritis Sister Arthritis Surgical History (Updated 02/15/23 @ 19:16 by Kerrie Valdivia) History of colonoscopy (~02/24/15) History of esophagogastroduodenoscopy (EGD) (~08/31/17) History of esophagogastroduodenoscopy (EGD) (~09/2018) History of laparoscopic cholecystectomy History of left cataract surgery History of repair of hiatal hernia S/P hip replacement s/p Lap toupet reflux procedure (~11/19/18) Social History Smoking Status: Never smoker second hand exposure: No alcohol intake: current alcohol intake frequency: a few times a month substance use type: does not use what type of physical activity do you participate in: walking jsesica/worship: [employer] seatbelt use: sometimes additional social history: Does Take Aspirin As Needed Does Take Ibuprofen As Needed ROS ROS ED Constitutional Constitutional ED: Denies chills or fever(s) Eyes Eyes: Denies change in vision or discharge from eye(s) ENT ENT ED: Denies discharge from eye(s), rhinorrhea or sore throat Cardiovascular Cardiovascular: Denies chest pain or palpitations Respiratory/Chest Respiratory/Chest: Denies cough or dyspnea Gastrointestinal Gastrointestinal: Denies abdominal pain, nausea or vomiting Genitourinary Genitourinary ED: Denies dysuria Musculoskeletal Musculoskeletal: Reports extremity pain; Denies back pain Integumentary Denies Abrasions or rash Neurologic Neurologic: Denies headache(s) or weakness Psychiatric Psychiatric: Denies anxiety or depression Allergic/Immunologic Allergic/Immunologic ED: Denies lip swelling or urticaria EXAM Physical Exam Const Vital Signs: 02/15/23 17:37 02/15/23 19:15 Temperature 97.8 F Temperature Source Temporal Pulse Rate 78 Respiratory Rate 16 Respiratory Effort Normal Non-Labored Blood Pressure 139/76 H Blood Pressure Mean 97 Pulse Ox 99 Oxygen Delivery Method Room Air Positive well nourished and well developed General Appearance ED: well developed HEENT Reports moist mucous membranes Eyes PERRL and EOMs intact bilaterally Neck no lymphadenopathy Chest Wall inspection of chest normal and palpation of chest normal Resp normal respiratory effort and clear to auscultation bilaterally Cardio regular rate and regular rhythm GI non-tender Palpation: soft Extremity Extremity Narrative: 3+ bilateral lower extremity edema. Neuro oriented x3 MDM MDM MDM Narrative Medical decision making narrative: Venous ultrasound of the bilateral lower extremities obtained. Reading reveals no evidence of DVT. Patient is reassured with this and will start her low-dose aspirin as prescribed by her orthopedist. Radiography Diagnostic Testing: Clinical Impression(s) from Imaging Studies Venous Duplex 02/15/23 19:04 IMPRESSION: Normal venous Doppler ultrasound of the bilateral lower extremities. Electronically Signed: Ry Roblero MD at 20:30 EDT , Discharge Plan Triage Chief Complaint: Edema ED Provider: Dalia Calles Dx/Rx/DC Orders Clinical Impression: Edema Instructions: ED Peripheral Edema, Bilateral Prescriptions: No Action Move Free Joint Health 750 mg-100 mg- 1.65 mg-108 mg tablet 1 tab PO BID calcium carbonate 600 mg calcium (1,500 mg) tablet 1,200 mg PO DAILY VITAMIN D 3 500 mg tablet 500 mg PO DAILY Patient Comments: 500 UNITS DAILY (DME) Right wrist splint See Rx Instructions .Route .MEDSUPPLY Qty: 1 0RF Rx Instructions: Use as directed for right carpal tunnel syndrome meloxicam 7.5 mg tablet 7.5 mg PO BID PRN (Reason: Muscle/joint pain) Qty: 60 4RF gabapentin 300 mg capsule 300 mg PO DAILY PRN oxybutynin chloride 5 mg tablet 5 mg PO QHS PRN Rx Instructions: Take 1 tablet p.o. nightly. Begin this medication 1 week following initiation of duloxetine. tumeric PO krnqjvawwyks-Ms-dqiw-minerals 1 EACH tablet 1 ea PO DAILY cyanocobalamin (vitamin B-12) 500 mcg tablet 5,000 mcg PO DAILY@0800 magnesium 250 mg tablet 250 mg PO.IVFORM DAILY [place] 3 Fish Oil Capsule 1,250 mg PO DAILY levothyroxine 100 mcg tablet 100 mcg PO QHS Qty: 90 3RF omeprazole 40 mg capsule,delayed release(DR/EC) 40 mg PO 1400 Qty: 90 3RF hydrochlorothiazide 12.5 mg tablet 12.5 mg PO DAILY Qty: 90 3RF labetalol 100 mg tablet 100 mg PO DAILY Qty: 90 3RF losartan 50 mg tablet 50 mg PO DAILY Qty: 90 3RF pentoxifylline 400 mg tablet extended release 400 mg PO DAILY Qty: 30 0RF Rx Instructions: must administer with a meal/food Primary Care Provider: Antonia Louis Referrals: Antonia Louis MD [Primary Care Provider] - 1 Week if not improving Disposition Disposition: Home, Self Care
--- NOTE | 2023-02-15 19:04 | US_ITS ---
STUDY: VENOUS DOPPLER ULTRASOUND - BILATERAL LOWER EXTREMITIES REASON FOR EXAM: Female, 77 years old. BILAT LEG SWELLING TECHNIQUE: Ultrasound evaluation of the deep vein system to include umanzor-scale imaging and compression was performed. Umanzor-scale imaging and Doppler sonographic evaluation, including duplex spectral analysis and qualitative color flow sonography, was performed. COMPARISON: 01/20/2022 FINDINGS: RIGHT LEG Common Femoral Vein: Normal compression, spontaneity and augmentation. Normal color Doppler. Common Femoral Vein/Greater Saphenous Junction: Normal compression, spontaneity and augmentation. Normal color Doppler. Deep Femoral Vein: Normal compression, spontaneity and augmentation. Normal color Doppler. Femoral Proximal: Normal compression, spontaneity and augmentation. Normal color Doppler. Femoral Middle: Normal compression, spontaneity and augmentation. Normal color Doppler. Femoral Distal: Normal compression, spontaneity and augmentation. Normal color Doppler. Popliteal Vein: Normal compression, spontaneity and augmentation. Normal color Doppler. Posterior Tibial Vein: Normal compression, spontaneity and augmentation. Normal color Doppler. Peroneal Vein: Normal compression, spontaneity and augmentation. Normal color Doppler. LEFT LEG Common Femoral Vein: Normal compression, spontaneity and augmentation. Normal color Doppler. Common Femoral Vein/Greater Saphenous Junction: Normal compression, spontaneity and augmentation. Normal color Doppler. Deep Femoral Vein: Normal compression, spontaneity and augmentation. Normal color Doppler. Femoral Proximal: Normal compression, spontaneity and augmentation. Normal color Doppler. Femoral Middle: Normal compression, spontaneity and augmentation. Normal color Doppler. Femoral Distal: Normal compression, spontaneity and augmentation. Normal color Doppler. Popliteal Vein: Normal compression, spontaneity and augmentation. Normal color Doppler. Posterior Tibial Vein: Normal compression, spontaneity and augmentation. Normal color Doppler. Peroneal Vein: Normal compression, spontaneity and augmentation. Normal color Doppler. US/Venous Duplex Imag/Blade Extrem IMPRESSION: Normal venous Doppler ultrasound of the bilateral lower extremities. Electronically Signed: Ry Roblero MD at 20:30 EDT ,
[2023-02-15 20:37] VITALS: PULSE 67; O2SAT 100
== END 2023-02-15 21:02 | disposition home or self-care (01) ==
PROVIDERS: Emergency Provider Emergency Medicine; PCP Internal Medicine; Visit Provider Emergency Medicine
DX: R60.9 Edema, unspecified (principal); J44.9 Chronic obstructive pulmonary disease, unspecified; Z96.642 Presence of left artificial hip joint; Z90.49 Acquired absence of other specified parts of digestive tract; K21.9 Gastro-esophageal reflux disease without esophagitis
CPT/HCPCS: 93970; 99282

== ENCOUNTER 2023-03-30 20:31 | Emergency (ER) | payer MEDICARE, SELFPAY ==
[2023-03-30 20:32] VITALS: BP 186/80; PULSE 61; RESP 17; TEMP 36.4; O2SAT 100; BMI 29.6
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
[2023-03-30 22:13] LABS: Anion Gap 5 (5-15); BUN 14 mg/dL (7-18); BUN/Creat Ratio 13.3 RATIO (10-20); Calcium,Total 8.9 mg/dL (8.5-10.1); Chloride 104 mmol/L (98-107); Creatinine, Serum 1.05 mg/dL (0.55-1.02); EST Glomerular Filtration Rate 54 mL/min (>60); Est Glom Filt Rate - Afr Amer 65 mL/min (>60); Estimated Creatinine Clearance 37.12 ml/min; Glucose 133 mg/dL (74-106); Potassium 4.2 mmol/L (3.5-5.1); Sodium Level 137 mmol/L (136-145)
[2023-03-30 22:23] LABS: Absolute Lymphocyte Count 1.69 X10^3/uL (0.83-4.51); Absolute Neutrophil Count 3.4 X10^3/uL (2.0-7.7); Basophil# 0.03 X10^3/uL; Basophil% 0.5 % (0-1); Eosinophil# 0.25 X10^3/uL; Eosinophils% 4.3 % (0-5); Hemoglobin 11.7 g/dL (12.0-15.0); Lymphocyte # 1.69 X10^3/ul (0.83-4.51); Lymphocyte % 28.9 % (19-41); Mean Corp Hgb Conc 33.4 g/dL (32-36); Mean Corpuscular Hgb 32.2 pg (27.0-32.0); Mean Corpuscular Volume 96.4 fL (81-99); Mean Platelet Vol. 9.4 fl (6.2-12.0); Monocyte# 0.46 X10^3/uL; Monocyte% 7.9 % (0-10); NRBC Flagged by Analyzer 0 % (0-5); Neutrophil % 58.2 % (47-70); Platelet Count 250 K/mm3 (150-450); RBC Distribution Width CV 11.6 % (11.6-14.6); RBC Distribution Width SD 40.8 fl (35.1-43.9); Red Blood Count 3.63 M/mm3 (4.2-5.4); White Blood Count 5.8 K/mm3 (4.4-11.0)
[2023-03-30 22:27] LABS: Bacteria 0 SEEN /hpf (None Seen); Mucous, Urine 0 SEEN /hpf (<or=2+); Squamous Epithelial Cells - UA 0 SEEN /hpf (5-10); White Blood Cells 0 SEEN /hpf (0-5)
[2023-03-30 22:28] LABS: Color, Urine Yellow (Yellow); Glucose, Dipstick Normal (Normal); Ketone-Dipstick Negative (Negative); Leukocyte Esterase-Dipstick Negative /ul (Negative); Nitrite-Dipstick Negative (Negative); Occult Blood-Urine 25 /ul (Negative); Protein-Dipstick Negative (Negative); Urine Bilirubin Dipstick Negative (Negative); Urine Clarity Clear (Clear); Urine Urobilinogen Normal (Normal)
[2023-03-30 22:35] LABS: Red Blood Cells-Urine 0-5 SEEN /hpf (0-5)
[2023-03-30 23:56] VITALS: RESP 16
--- NOTE | 2023-03-31 16:24 | ED.RN ---
PT CALLED REQUESTING F/U INFORMATION FROM HER ER VISIT LAST NIGHT. PT C/O LENGTH OF TIME IN WAITING ROOM AND IN ER, LACK OF CT BEING DONE EVEN THOUGH PEOPLE AROUND HAVE TOLD HER SHE NEEDS ONE BECAUSE SHE HAS A INGUINAL HERNIA. STATES SHE WAS HERE FOR 4 HRS AND JUST HAD BLOOD WORK AND URINE TEST DONE AND THAT WAS NOT ENOUGH. ALSO STATES SHE KNOWS HERNIAS CAN BE VERY BAD AND FEELS SHE SHOULD NOT HAVE HAD TO WAIT IN THE WAITING ROOM BECAUSE HER ACUITY WAS VERY HIGH BECAUSE OF THE HERNIA SHE DOESN'T KNOW THAT SHE HAS. PT CONTINUED TO VOICE COMPLAINTS, THIS NURSE STOPPED TRYING TO TALK OR EXPLAIN AND OF THE REASONS AND JUST RELAYED THE F/U INFORMATION AND VERIFY PT DIDN'T HAVE ANY OTHER QUESTIONS. GAVE PT ADVOCATE INFO FOR FURTHER CONCERNS
== END 2023-03-30 23:56 | disposition home or self-care (01) ==
LOC: ED 21:49
PROVIDERS: Emergency Provider Emergency Medicine; PCP Internal Medicine; Visit Provider Emergency Medicine
DX: R10.31 Right lower quadrant pain (principal); J44.9 Chronic obstructive pulmonary disease, unspecified; N39.41 Urge incontinence; I10 Essential (primary) hypertension; I87.2 Venous insufficiency (chronic) (peripheral); E03.9 Hypothyroidism, unspecified; K21.00 Gastro-esophageal reflux disease with esophagitis, without bleeding; Z79.82 Long term (current) use of aspirin; Z79.890 Hormone replacement therapy; Z79.899 Other long term (current) drug therapy
CPT/HCPCS: 80048; 81001; 85025; 99283; A4216

== ENCOUNTER 2023-04-06 13:30 | Outpatient (RCR) | payer MEDICARE, SELFPAY ==
--- NOTE | 2023-03-08 15:34 | HP.PTEVAL ---
Patient's Visit Information Visit Information Visit Information: KAREN HUDSON is a 77 year old F referred to Physical Therapy by Dr. Sina Munoz MD with a diagnosis of L BRENNAN 01/24 23. Date of Evaluation: 03/08/23 Physical Therapist: Rey Ellison, DPT, OCS, CSCS Visit Plan Frequency: 2-3x /Week Duration: 4-6 Weeks Plan: 2-3x/week for 4-6 weeks for(posterior hip precautions only to 6 weeks according to patient but be slow 1. gait and stair training L LE 2. strength L hip 3. monitor incision for healing please. work on rolling safely with precautions and floor transition progress to I HEP Subjective Subjective: L BRENNAN after collapsed hip and yers of trouble. 01/24/[address] munoz. Lateral approach. Has been at home adn having home health care and PT. HEP at home includes marching and sink exercises heel raises, HS, SLR, AP. Home health ended 1 week ago. Hospital van brought her today. She drives when she is healthy. Uses cane to get around. Used a walker prior to surgery. Lives alone, two story house and using steps with right leg. Retired. Sleep is not great as she has to get up to pee since back surgery 10 months ago. has also had leg vein circulation surgery.Will see urologist, had to cancel last week Basic ADLs all getting done herself. Hobbies: yard work, gardening. Is out in the yard daily and wants to be abkle to bend and get on and off ground. 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 Precautions: no crossing legs, no bending too far. no pivot until 6 weeks. Pain Hip: Pain Intensity (Out of 10): 1 Pain Intensity Range: 0 and 1 Comment: LB and R upper leg can hurt in the morning. Objective Objective: Ambulates cane in R UE with short R step length. No antalgia, similar gait pattern without cane but not as confident. Trasnfers with UE I. Steps using R but can with L with cues and rail but weaker, not overly painful. incision has 3 small dry openings with just slight redness today, pt is to keep her eye on these for increasing redness, wetness or fever/heat and let doctor know if these occur. Hip ROM L 90 flexion to 5 extension, 15 abduction and 30 er, 0 IR. Limited by muscle spasms, hesitation with dislocation precautions. knee adn ankle AROM WFL L and R. strength L hip abd 3 adn R is 4-, flexion 3+ B, extension 3 L and 3+ R. knee flexion and ext 4- L and 4 R, ankles are 4 B. sensation WNL to gross light touch LE, reflexes 2/3 patella and achilles B. Able to flex in sitting to just past 90 trunk to femur on L and slow but can get hands only to mid calf. Balance/Special Test Scores Functional Gait Assessment Score: 22 % Disability: 26.6700 WOMAC Total Score: 28 WOMAC Percentatge: 69.5700 Goals Goal 1:: FGA to limit fall risk Goal Time Frame: 4-6 Weeks Goal 2:: steps reciprocal with one rail up and down Goal Time Frame: 4-6 Weeks Goal 3:: ambulate community without AD Goal Time Frame: 4-6 Weeks Goal 4:: on and off floor with support I to get out of garden Goal Time Frame: 4-6 Weeks Goal 5:: Pt feel 80% back to normal Goal Time Frame: 4-6 Weeks Goal 6:: I appropr HEP for continued strength adn health Goal Time Frame: 4-6 Weeks Rehabilitation Potential Physical Therapy Diagnosis: weakness and stiffness s/p L BRENNAN Rehabilitation Potential: Good Anticipated Interventions Patient/Client Instruction: Educate patient on: Condition and Plan of Care For the Purpose of:: To decrease pain, To increase ROM, To improve nutrient delivery to tissue, To improve muscle performance and motor function, To increase tolerance to activity/condition/position, To improve ability of physical actions for home/community/work/leisure and To improve gait and locomotor functions Therapeutic Exercise to Include: Strength training, Balance training, Flexibilty training, Gait and locomotor training, Passive ROM and Active ROM For the Purpose of:: To decrease pain, To increase ROM, To improve nutrient delivery to tissue, To improve muscle performance and motor function, To increase tolerance to activity/condition/position, To improve ability of physical actions for home/community/work/leisure and To improve gait and locomotor functions Text: Thank you for the opportunity to evaluate your patient. For Medicare and Medicare HMO plans, please review the plan of care and approve it. It will need to be FAXED BACK to us at [phone] for Medicare purposes. For Medicare only, by signing this I certify the plan of care. Please let me know if there are questions or concerns regarding this plan of care. Physician Signature: Date:
--- NOTE | 2023-04-06 14:35 | HP.PTDCSUM ---
Discharge Summary D/C summary: It has been my pleasure to treat KAREN HUDSON referred by Dr. Sina Munoz MD, with the diagnosis of L BRENNAN 01/24 23 for a total of 10 visit(s). Discharge Date: 04/06/23 Please see the following information for a summary of their discharge status. Subjective Subjective: Patient seems to have pain often. Has most pain in the R groin Pain Hip: Pain Intensity (Out of 10): 0 LB: Pain Intensity (Out of 10): 3 Overall Improvement % Improvement: 50 Objective Objective/Function: Patient managed all interventions without increases in pain in groin or lower back. Used MHP for potential pain relief for LBP. Goals Goal 1:: FGA to limit fall risk Goal Progress: Progressing Goal 2:: steps reciprocal with one rail up and down Goal Progress: Goal Met Goal 3:: ambulate community without AD Goal Progress: cane Goal 4:: on and off floor with support I to get out of garden Goal Progress: not tested. Goal 5:: Pt feel 80% back to normal Goal Progress: yes with L hip Goal 6:: I appropr HEP for continued strength adn health Goal Progress: Goal Met Plan Plan: 2-3x/week for 4-6 weeks for(posterior hip precautions only to 6 weeks according to patient but be slow 1. gait and stair training L LE 2. strength L hip 3. monitor incision for healing please. work on rolling safely with precautions and floor transition progress to I HEP D/C Information d/c sentence: If there are questions or concerns regarding this patient's physical therapy, please feel free to call me at [phone]. Thank you for the referral of this patient. Sincerely, Rey Ellison, DPT, OCS, CSCS Balance/Gait/Functional tests Balance/Special Test Scores Functional Gait Assessment Score: 21 % Disability: 30.0000 WOMAC Total Score: 5 WOMAC Percentage: 94.8000
== END 2023-04-06 19:00 | disposition home or self-care (01) ==
LOC: PT 13:30
PROVIDERS: PCP Internal Medicine; Referring Provider Orthopaedic Surgery; Visit Provider Orthopaedic Surgery
DX: M16.12 Unilateral primary osteoarthritis, left hip (principal); Z96.642 Presence of left artificial hip joint
CPT/HCPCS: 97110; 97162; 97164

== ENCOUNTER 2023-04-20 09:27 | Inpatient (IN) | payer MEDICARE, SELFPAY ==
[2023-04-20 09:28] VITALS: BP 164/94; PULSE 78; RESP 14; TEMP 36.6; O2SAT 98
--- NOTE | 2023-04-20 09:35 | ED.RN ---
PT COMPLAINING ABOUT 4 HOUR VISIT THE LAST TIME. STATES THAT SHE IS IN PAIN NOW AND THAT PT'S IN PAIN SHOULD BE A PRIORITY, I DONT SEE ANYONE DYING IN HERE, YOU ARENT THAT BUSY. I SHOULD NOT HAVE TO BE HERE FOR 4 HOURS THIS TIME. PT STATES SHE HAS N/V, I NEED SOMETHING TO EAT AND DRINK NOW.
--- NOTE | 2023-04-20 10:09 | CT_ITS ---
STUDY: CT ABDOMEN AND PELVIS WITH CONTRAST REASON FOR EXAM: Female, 77 years old. Emesis. Prior cholecystectomy. Abd pain -- IV PO Contrast RADIATION DOSAGE (If Supplied By Facility): CTDIvol = ( 17.14 ) mGy, DLP = ( 839.46 ) mGycm TECHNIQUE: Transaxial images were obtained from the dome of the diaphragm to the symphysis pubis with oral contrast. Oral and amp; IV Gastrografin and amp; 100mL Isovue-370 was administered. Sagittal and coronal images were reconstructed. Individualized dose optimization techniques were used for this CT. COMPARISON: None. FINDINGS: The visualized lung bases are unremarkable. Calcification of the mitral valve annulus. Normal liver. Small amount of perihepatic fluid. There are surgical clips in the gallbladder fossa consistent with a prior cholecystectomy. Dilated intrahepatic biliary ducts. Normal spleen. Normal pancreas. Normal bilateral adrenal glands. Normal right kidney. Normal left kidney. There is gastric distention with air fluid and residual food particles. There are dilated loops of the small intestine with a non-distended colon consistent with a small bowel obstruction. The transition point is in the distal ileum. A small bowel loop is seen in the right inguinal hernia. Incarceration of the hernia should be ruled out. Normal colon. The appendix is visualized and appears normal. There is diffuse atherosclerotic calcification of the abdominal aorta and its major visceral branches, without a demonstrated aneurysm. Normal inferior vena cava. Normal retroperitoneum. Thickened urinary bladder wall although the urinary bladder is not completely distended at this time. Normal abdominal wall. There are diffuse degenerative changes of the visualized lumbar spine. CT/Abdomen/Pelvis WITH Contrast IMPRESSION: Small bowel obstruction down to the distal portion of the ileum. Small bowel loop seen in the right inguinal canal. Electronically Signed: Haseeb Frias MD at 12:20 EDT ,
[2023-04-20] MEDS: Ondansetron 4 MG/2 ML Vial IV (10:17)
[2023-04-20] MEDS: fentaNYL 100 MCG/2 ML Ampul 12.5 MCG IV (10:17)
[2023-04-20 10:20] LABS: Absolute Lymphocyte Count 0.89 X10^3/uL (0.83-4.51); Absolute Neutrophil Count 9.4 X10^3/uL (2.0-7.7); Basophil# 0.02 X10^3/uL; Basophil% 0.2 % (0-1); Hematocrit 44.4 % (37-47); Hemoglobin 14.7 g/dL (12.0-15.0); Lymphocyte # 0.89 X10^3/ul (0.83-4.51); Lymphocyte % 8.3 % (19-41); Mean Corp Hgb Conc 33.1 g/dL (32-36); Mean Corpuscular Hgb 31.1 pg (27.0-32.0); Mean Corpuscular Volume 94.1 fL (81-99); Mean Platelet Vol. 9.2 fl (6.2-12.0); Monocyte# 0.42 X10^3/uL; Monocyte% 3.9 % (0-10); NRBC Flagged by Analyzer 0 % (0-5); Neutrophil # 9.39 X10^3/uL (2.7-7.7); Neutrophil % 87.2 % (47-70); Platelet Count 326 K/mm3 (150-450); RBC Distribution Width CV 11.9 % (11.6-14.6); RBC Distribution Width SD 41.5 fl (35.1-43.9); Red Blood Count 4.72 M/mm3 (4.2-5.4); White Blood Count 10.8 K/mm3 (4.4-11.0)
[2023-04-20 10:40] LABS: AST(SGOT) 23 U/L (15-37); Alanine Aminotransfer ALT/SGPT 19 U/L (13-56); Alkaline Phosphatase 93 U/L (45-117); Anion Gap 8 (5-15); BUN 17 mg/dL (7-18); BUN/Creat Ratio 17.2 RATIO (10-20); Bilirubin, Direct 0.22 mg/dL (0.00-0.30); Calcium,Total 9.6 mg/dL (8.5-10.1); Chloride 99 mmol/L (98-107); Creatinine, Serum 0.99 mg/dL (0.55-1.02); EST Glomerular Filtration Rate 58 mL/min (>60); Est Glom Filt Rate - Afr Amer 70 mL/min (>60); Globulin 3.6 g/dL (2.2-4.2); Glucose 145 mg/dL (74-106); Potassium 3.8 mmol/L (3.5-5.1); Protein, Total 7.6 g/dL (6.4-8.2); Sodium Level 135 mmol/L (136-145)
[2023-04-20 11:29] LABS: Mucous, Urine 0 SEEN /hpf (<or=2+)
[2023-04-20 11:30] LABS: Color, Urine Yellow (Yellow); Glucose, Dipstick Normal (Normal); Ketone-Dipstick Negative (Negative); Leukocyte Esterase-Dipstick 25 /ul (Negative); Nitrite-Dipstick Negative (Negative); Occult Blood-Urine 150 /ul (Negative); Protein-Dipstick 30 mg/dl (Negative); Urine Bilirubin Dipstick Negative (Negative); Urine Clarity Sl. Cloudy (Clear); Urine Urobilinogen Normal (Normal)
[2023-04-20 11:39] LABS: Bacteria 1+ /hpf (None Seen); Red Blood Cells-Urine 10-25 SEEN /hpf (0-5); Squamous Epithelial Cells - UA 0-5 SEEN /hpf (5-10); White Blood Cells 0-5 SEEN /hpf (0-5)
[2023-04-20 12:31] VITALS: BMI 30.4
--- NOTE | 2023-04-20 12:41 | EX.ED.DYSGE1 ---
HPI History of Present Illness Chief Complaint: Abd Pain Informant: patient Onset/Context/Timing Onset: Yesterday Narrative Narrative: Patient presents with recurrent abdominal pain. She is been having episodes of abdominal pain mostly in the right groin area. Patient states she been seen at urgent care in the past who told her she might have a hernia. She was told to come to the emergency room for possible CT scan. Exam in the ER at that time did not reveal any abnormalities and it was not felt that imaging was necessary. Patient is scheduled for an outpatient CT scan next week. Patient states last evening she developed recurrent swelling to the right groin area followed by nausea and vomiting. She denies fever. [facility] Medical History (Updated 04/20/23 @ 14:25 by Massiel Aguilar) Ambulates with cane Arthritis Back problem Barretts esophagus Carpal tunnel syndrome Cataracts, bilateral Chronic pain COPD (chronic obstructive pulmonary disease) Difficulty swallowing Epigastric pain GERD without esophagitis High blood pressure Neuropathy Non-smoker Osteoarthritis Osteoporosis Poor balance Severe esophageal dysplasia Thyroid disease Vision problems Wears glasses Home Medications glucosam 750 mg-chondroi 100 mg-hyalur 1.65 mg-CF borate 108 mg tablet ([employer] 1 tab PO BID 05/31/21 [History Last Taken Unknown] VITAMIN D 3 500 mg PO DAILY 12/17/21 [History Last Taken Unknown] calcium carbonate 600 mg calcium (1,500 mg) tablet 1,200 mg PO DAILY 12/17/21 [History Last Taken Unknown] cyanocobalamin (vitamin B-12) 500 mcg tablet 5,000 mcg PO DAILY@0800 12/17/21 [History Last Taken Unknown] magnesium 250 mg PO.IVFORM DAILY 02/08/22 [History Last Taken Unknown] Right wrist splint #1 ea 08/23/22 [Rx Last Taken Unknown] hydrochlorothiazide 12.5 mg tablet 12.5 mg PO DAILY #90 tabs 12/30/22 [Rx Last Taken Unknown] labetalol 100 mg tablet 100 mg PO DAILY #90 tabs 12/30/22 [Rx Last Taken Unknown] losartan 50 mg tablet 50 mg PO DAILY #90 tabs 12/30/22 [Rx Last Taken Unknown] tumeric See Rx Instructions PO .COMPLEX 01/04/23 [History Last Taken Unknown] multivitamin (Daily Vitamin Formula tablet) 1 tab PO DAILY 03/10/23 [History Last Taken Unknown] vibegron 75 mg tablet ([employer]) 75 mg PO DAILY 03/10/23 [History Last Taken Unknown] aspirin 81 mg capsule 81 mg PO DAILY 03/13/23 [History Last Taken Unknown] levothyroxine 100 mcg tablet 100 mcg PO QHS #90 tabs 03/22/23 [Rx Last Taken Unknown] omeprazole 40 mg capsule,delayed release 40 mg PO 1400 #90 caps 03/22/23 [Rx Last Taken Unknown] pentoxifylline 400 mg tablet,extended release 400 mg PO DAILY #90 tabs 03/22/23 [Rx Last Taken Unknown] Allergy/AdvReac Type Severity Reaction Status Date / Time No Known Allergies Allergy Verified 04/20/23 09:28 Family History Mother Diabetes Hypertension Arthritis Sister Arthritis Surgical History (Updated 04/20/23 @ 14:25 by Massiel Aguilar) History of cholecystectomy History of colonoscopy (~02/24/15) History of esophagogastroduodenoscopy (EGD) (~08/31/17) History of esophagogastroduodenoscopy (EGD) (~09/2018) History of laparoscopic cholecystectomy History of left cataract surgery History of repair of hiatal hernia S/P hip replacement s/p Lap toupet reflux procedure (~11/19/18) Social History Smoking Status: Never smoker second hand exposure: No alcohol intake: current alcohol intake frequency: a few times a month substance use type: does not use what type of physical activity do you participate in: walking jessica/buddhism: Protestant seatbelt use: sometimes additional social history: Does Take Aspirin As Needed Does Take Ibuprofen As Needed ROS ROS ED Constitutional Constitutional ED: Denies chills or fever(s) Eyes Eyes: Denies change in vision or discharge from eye(s) ENT ENT ED: Denies discharge from eye(s), rhinorrhea or sore throat Cardiovascular Cardiovascular: Denies chest pain or palpitations Respiratory/Chest Respiratory/Chest: Denies cough or dyspnea Gastrointestinal Gastrointestinal: Reports abdominal pain, nausea and vomiting; Denies diarrhea Genitourinary Genitourinary ED: Denies dysuria Musculoskeletal Musculoskeletal: Denies back pain or extremity pain Integumentary Denies Abrasions or rash Neurologic Neurologic: Denies headache(s) or weakness Psychiatric Psychiatric: Denies anxiety or depression Allergic/Immunologic Allergic/Immunologic ED: Denies lip swelling or urticaria EXAM Physical Exam Const Vital Signs: 04/20/23 09:28 04/20/23 13:44 04/20/23 14:25 Temperature 98 F 98.1 F 98.9 F Temperature Source Temporal Temporal Temporal Pulse Rate 78 88 65 Respiratory Rate 14 18 20 H Blood Pressure 164/94 H 150/72 H 160/60 H Blood Pressure Mean 117 98 93 Blood Pressure Source Monitor Blood Pressure Position Semi-Fowlers Blood Pressure Location Right Arm Pulse Ox 98 96 Oxygen Delivery Method Room Air Room Air Positive well nourished and well developed General Appearance ED: well developed HEENT Reports normocephalic and head/scalp atraumatic Eyes PERRL and EOMs intact bilaterally Neck supple Chest Wall inspection of chest normal and palpation of chest normal Resp normal respiratory effort and clear to auscultation bilaterally Cardio regular rate and regular rhythm GI GI Narrative: Hypoactive bowel sounds. Palpable inguinal hernia in the right groin line. Area is not significantly tender. No overlying skin changes. Palpation: soft Extremity normal to inspection Neuro oriented x3 and no sensory deficits noted Sensorium / Orientation: alert Motor Exam: strength 5/5 throughout Psych mental status grossly normal Skin no rashes or lesions noted MDM MDM MDM Narrative Medical decision making narrative: Patient given a small dose of fentanyl for pain along with IV fluids. Labwork obtained to evaluate for leukocytosis, anemia, and electrolyte derangement. CT scan of the abdomen and pelvis obtained to evaluate for hernia, bowel obstruction. Lab Data Attestation: I reviewed the patient's lab results. Labs: Laboratory Results - last 24 hr 04/20/23 04/20/23 09:48 11:26 WBC 10.8 RBC 4.72 Hgb 14.7 Hct 44.4 MCV 94.1 MCH 31.1 MCHC 33.1 RDW Std Deviation 41.5 RDW Coeff of Kylie 11.9 Plt Count 326 MPV 9.2 Immature Gran % (Auto) 0.400 Neut % (Auto) 87.2 H Lymph % (Auto) 8.3 L [place] % (Auto) 3.9 Eos % (Auto) 0.0 Baso % (Auto) 0.2 Absolute Neuts (auto) 9.4 H Absolute Lymphs (auto) 0.89 Nucleated RBC % 0 Sodium 135 L Potassium 3.8 Chloride 99 Carbon Dioxide 28.0 Anion Gap 8 BUN 17 Creatinine 0.99 Est GFR (MDRD) Af Amer 70 Est GFR (MDRD) Non-Af 58 L BUN/Creatinine Ratio 17.2 Glucose 145 H Calcium 9.6 Total Bilirubin 0.80 Direct Bilirubin 0.22 AST 23 ALT 19 Alkaline Phosphatase 93 Total Protein 7.6 Albumin 4.0 Globulin 3.6 Urine Color Yellow Urine Clarity Sl. Cloudy Urine pH 7.0 Ur Specific [place] 1.010 Urine Protein 30 H Urine Glucose (UA) Normal Urine Ketones Negative Urine Occult Blood 150 H Urine Nitrite Negative Urine Bilirubin Negative Urine Urobilinogen Normal Ur Leukocyte Esterase 25 H Urine RBC 10-25 SEEN Urine WBC 0-5 SEEN Ur Squamous Epith Cells 0-5 SEEN Urine Bacteria 1+ Urine Mucus 0 SEEN Radiography Diagnostic Testing: Clinical Impression(s) from Imaging Studies Abdomen/Pelvis CT 04/20/23 10:09 IMPRESSION: Small bowel obstruction down to the distal portion of the ileum. Small bowel loop seen in the right inguinal canal. Electronically Signed: Haseeb Frias MD at 12:20 EDT , KUB X-Ray 04/20/23 12:55 IMPRESSION: The tip of the nasogastric tube is in the second portion of the duodenum. Electronically Signed: Haseeb Frias MD at 13:31 EDT , Treatment and Re-Evaluation :: CBC was normal white count at 10.8 with 87% neutrophils. Chemistry studies are unremarkable other than a glucose of 145. LFTs are normal. Urinalysis reveals 1+ bacteria with 0-5 epithelial cells and 10-25 RBCs. No nitrites noted. CT scan of the abdomen pelvis reveals a small bowel obstruction down to the distal portion of the ileum. A small bowel loop was seen in the right inguinal canal. Patient discussed with Dr. Bortz, on-call for surgery. NG tube was placed with 650 mL initially out. He will see the patient for admission. If he is unable to get the hernia to reduce she may require emergent surgery. Discharge Plan Dx/Rx/DC Orders Clinical Impression: Small bowel obstruction, Inguinal hernia Disposition Disposition: Acute Care [facility] Discharge Date/Time: 04/20/23 13:53
--- NOTE | 2023-04-20 12:55 | RAD_ITS ---
STUDY: X-RAY - ABDOMEN/PELVIS REASON FOR EXAM: Female, 77 years old. NG Insertion TECHNIQUE: Single AP view of the abdomen / pelvis. COMPARISON: None. FINDINGS: The tip of the nasogastric tube is in the second portion of the duodenum. RAD/Abdomen Single View (Portable) IMPRESSION: The tip of the nasogastric tube is in the second portion of the duodenum. Electronically Signed: Haseeb Frias MD at 13:31 EDT ,
--- NOTE | 2023-04-20 13:19 | NURSING ---
[address], INQUINAL HERNIA
--- NOTE | 2023-04-20 13:21 | PCM.PN.HOSP ---
Subjective Subjective 77-year-old female presents to the hospital with abdominal pain. Started yesterday at around 5 PM and continued through this morning. She presented back to the ER with what appeared to be small bowel obstruction within the right inguinal hernia. This was able to be reduced by surgery in the ER with plans for operative repair tomorrow according to the patient Objective Data Objective Data Vital Signs: Vital Signs Temp Pulse Resp BP Pulse Ox O2 Del Method 98 F 78 14 164/94 H 98 Room Air 04/20/23 09:28 04/20/23 09:28 04/20/23 09:28 04/20/23 09:28 04/20/23 09:28 04/20/23 09:28 Oxygen Delivery Method Room Air Weight: 171 lb 8.314 oz Body Mass Index (BMI) 30.4 Lab / Micro Data 04/20/23 09:48 04/20/23 09:48 Labs: Laboratory Results - last 24 hr 04/20/23 09:48: WBC 10.8, RBC 4.72, Hgb 14.7, Hct 44.4, MCV 94.1, MCH 31.1, MCHC 33.1, RDW Std Deviation 41.5, RDW Coeff of Kylie 11.9, Plt Count 326, MPV 9.2, Immature Gran % (Auto) 0.400, Neut % (Auto) 87.2 H, Lymph % (Auto) 8.3 L, [place] % (Auto) 3.9, Eos % (Auto) 0.0, Baso % (Auto) 0.2, Absolute Neuts (auto) 9.4 H, Absolute Lymphs (auto) 0.89, Nucleated RBC % 0, Sodium 135 L, Potassium 3.8, Chloride 99, Carbon Dioxide 28.0, Anion Gap 8, BUN 17, Creatinine 0.99, Est GFR (MDRD) Af Amer 70, Est GFR (MDRD) Non-Af 58 L, BUN/Creatinine Ratio 17.2, Glucose 145 H, Calcium 9.6, Total Bilirubin 0.80, Direct Bilirubin 0.22, AST 23, ALT 19, Alkaline Phosphatase 93, Total Protein 7.6, Albumin 4.0, Globulin 3.6 04/20/23 11:26: Urine Color Yellow, Urine Clarity Sl. Cloudy, Urine pH 7.0, Ur Specific [place] 1.010, Urine Protein 30 H, Urine Glucose (UA) Normal, Urine Ketones Negative, Urine Occult Blood 150 H, Urine Nitrite Negative, Urine Bilirubin Negative, Urine Urobilinogen Normal, Ur Leukocyte Esterase 25 H, Urine RBC 10-25 SEEN, Urine WBC 0-5 SEEN, Ur Squamous Epith Cells 0-5 SEEN, Urine Bacteria 1+, Urine Mucus 0 SEEN Radiography Diagnostic Testing: Radiology Impression Abdomen/Pelvis CT 04/20/23 10:09 IMPRESSION: Small bowel obstruction down to the distal portion of the ileum. Small bowel loop seen in the right inguinal canal. Electronically Signed: Haseeb Frias MD at 12:20 EDT , Physical Exam Narrative General: Alert, Oriented x3, Cooperative, No apparent distress HEENT: Atraumatic, PERRLA, EOMI, Normocephalic, NG tube in place Oral: Moist Mucosa Neck: Supple, No JVD Lungs: Clear to auscultation, Normal air movement, No rhonchi, No wheeze, No rales Cardiovascular: Regular rate, Regular Rhythm, Normal S1, Normal S2, No murmurs Abdomen: Soft, Non Tender, Non-Distended, No Hepato-splenomegaly Extremities: No edema, Capillary Refill Less than 3 Seconds Skin: No rashes, No breakdown Musculoskeletal: No Tenderness to Palpation of Joints or Extremities Neurological: Cranial nerves II-XII grossly intact, Motor Exam 5/5 strength throughout, Sensory exam intact to light touch and pain Psych/Mental Status: Normal Affect, Appropriate Assessment & Plan Assessment/Plan (1) Inguinal hernia: (2) Small bowel obstruction: PLAN: Plan 1. Small bowel obstruction secondary to a right inguinal hernia ? The hernia was reduced ? Plan for surgical intervention tomorrow ? Can hold most of her oral medications and transition those to IV that we can ? Continue with the NG tube ? Continue with IV fluids 2. HTN/HLD ? Blood pressures are stable, will monitor ? Continue with IV metoprolol can hold her oral blood pressure medications 3. Hypothyroidism ? Stable ? Can resume Synthroid on discharge 4. GERD ? Stable ? Continue with IV PPI
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
[2023-04-20 13:44] VITALS: BP 150/72; PULSE 88; RESP 18; TEMP 36.7
[2023-04-20 14:13] VITALS: BMI 28.0
[2023-04-20 14:25] VITALS: BP 160/60; PULSE 65; RESP 20; TEMP 37.2; O2SAT 96
--- NOTE | 2023-04-20 15:35 | RAD_ITS ---
INDICATION: NG Placement EXAMINATION/TECHNIQUE: X-RAY - XR Abdomen 1 View COMPARISON: 04/20/2023. FINDINGS: The lungs are unchanged. The cardiomediastinal silhouette is stable. Unchanged position of NG tube with tip likely in the duodenum.. No pleural effusion or pneumothorax. The osseous structures are unchanged. RAD/Abdomen Single View (Portable) IMPRESSION: Unchanged position of NG tube with tip likely in the duodenum.. Otherwise, no change from prior study. Electronically Signed: Marky Chi MD at 17:58 EDT ,
[2023-04-20] MEDS: Lactated Ringers 1,000 ML 100 ML IV (15:55)
[2023-04-20] MEDS: 0.9% Saline Lock 10 ML Syringe IV (15:56)
--- NOTE | 2023-04-20 18:05 | RAD_ITS ---
INDICATION: NG Placement EXAMINATION/TECHNIQUE: X-RAY - XR Abdomen 1 View COMPARISON: 04/20/2023 FINDINGS: BOWEL GAS PATTERN: Persistent dilated loops of small bowel consistent with known bowel obstruction. Slight interval retraction of NG tube with tip still in the duodenum. FREE AIR: Not assessed on a single supine view. ORGANOMEGALY: Not seen. CALCIFICATIONS: No change. LOWER CHEST: No acute pathology. BONES AND SOFT TISSUES: No acute pathology. Degenerative changes. RAD/Abdomen Single View (Portable) IMPRESSION: Slight interval retraction of NG tube with tip still in the duodenum. Otherwise, no change from prior. Electronically Signed: Marky Chi MD at 19:15 EDT ,
[2023-04-20 19:56] VITALS: PULSE 80
[2023-04-20] MEDS: Metoprolol Tartrate 5 MG/5 ML Vial IV (19:56)
[2023-04-20] MEDS: BENZOCAINE/MENTHOL 1 LOZENGE MUCOUS MEM (20:30)
--- NOTE | 2023-04-20 21:00 | NURSING ---
NG tube pulled out 6cm per Doctors order. KUB ordered for placement
--- NOTE | 2023-04-20 21:40 | RAD_ITS ---
INDICATION: NG tube placement EXAMINATION/TECHNIQUE: X-RAY - XR Abdomen 1 View COMPARISON: 04/20/2023. FINDINGS: BOWEL GAS PATTERN: Persistent dilated loops of small bowel consistent with known bowel obstruction. Slight interval retraction of NG tube with tip likely gabino the antrum of the stomach versus 1st portion of the duodenum. FREE AIR: not visualized ORGANOMEGALY: Not seen. CALCIFICATIONS: No change. LOWER CHEST: No acute pathology. BONES AND SOFT TISSUES: No acute pathology. Degenerative changes. RAD/Abdomen Single View (Portable) IMPRESSION: Slight interval retraction of NG tube with tip likely gabino the antrum of the stomach versus 1st portion of the duodenum. Otherwise, no change from prior. Electronically Signed: Marky Chi MD at 23:08 EDT ,
[2023-04-20 23:30] VITALS: BP 131/61; PULSE 69; RESP 16; TEMP 36.8; O2SAT 95
[2023-04-21] VITALS (13 sets, daily range): BP systolic 134–165; BP diastolic 56–80; PULSE 56–70; RESP 12–18; TEMP 36.4–37.3; O2SAT 94–96; BMI 28.3
[2023-04-21] MEDS: 0.9% Saline Lock 10 ML Syringe IV (00:12)
[2023-04-21] MEDS: BENZOCAINE/MENTHOL 1 LOZENGE MUCOUS MEM ×3 (00:13→10:50)
[2023-04-21] MEDS: Metoprolol Tartrate 5 MG/5 ML Vial IV (00:13)
[2023-04-21] MEDS: Lactated Ringers 1,000 ML 100 ML IV ×3 (01:36→22:28)
--- NOTE | 2023-04-21 05:55 | EKG12_ITS ---
Test Reason : Blood Pressure : / mmHG Vent. Rate : 056 BPM Atrial Rate : 056 BPM P-R Int : 152 ms QRS Dur : 078 ms QT Int : 432 ms P-R-T Axes : 050 -18 -21 degrees QTc Int : 416 ms Sinus bradycardia Otherwise normal ECG When compared with ECG of 14-MAR-2022 12:57, No significant change was found Confirmed by TIFF AGUAYO MD ([id number]), video editor MATTHEW SHAH ([id number]) on 05/30/2023 1:37:21 PM Referred By: Sandra Confirmed By:TIFF AGUAYO MD
[2023-04-21 05:58] LABS: Absolute Lymphocyte Count 2.05 X10^3/uL (0.83-4.51); Absolute Neutrophil Count 4.6 X10^3/uL (2.0-7.7); Basophil# 0.03 X10^3/uL; Basophil% 0.4 % (0-1); Eosinophil# 0.14 X10^3/uL; Eosinophils% 1.9 % (0-5); Hematocrit 35.3 % (37-47); Hemoglobin 11.5 g/dL (12.0-15.0); Lymphocyte # 2.05 X10^3/ul (0.83-4.51); Lymphocyte % 27.4 % (19-41); Mean Corp Hgb Conc 32.6 g/dL (32-36); Mean Corpuscular Hgb 31.2 pg (27.0-32.0); Mean Corpuscular Volume 95.7 fL (81-99); Mean Platelet Vol. 8.9 fl (6.2-12.0); Monocyte# 0.64 X10^3/uL; Monocyte% 8.6 % (0-10); NRBC Flagged by Analyzer 0 % (0-5); Neutrophil # 4.59 X10^3/uL (2.7-7.7); Neutrophil % 61.4 % (47-70); Platelet Count 235 K/mm3 (150-450); RBC Distribution Width CV 12.3 % (11.6-14.6); RBC Distribution Width SD 42.4 fl (35.1-43.9); Red Blood Count 3.69 M/mm3 (4.2-5.4); White Blood Count 7.5 K/mm3 (4.4-11.0)
[2023-04-21 06:44] LABS: Anion Gap 5 (5-15); BUN 15 mg/dL (7-18); BUN/Creat Ratio 16.8 RATIO (10-20); Calcium,Total 8.5 mg/dL (8.5-10.1); Chloride 105 mmol/L (98-107); Creatinine, Serum 0.89 mg/dL (0.55-1.02); EST Glomerular Filtration Rate 65 mL/min (>60); Est Glom Filt Rate - Afr Amer 79 mL/min (>60); Estimated Creatinine Clearance 43.79 ml/min; Glucose 96 mg/dL (74-106); Potassium 3.5 mmol/L (3.5-5.1); Sodium Level 140 mmol/L (136-145)
--- NOTE | 2023-04-21 06:56 | PN.SURG_ITS ---
Subjective Subjective Patient seen and examined during AM rounds. She is found sleeping this morning, but does remark that she has a sore throat. She denies any abdominal discomfort. She states this is significantly improved over yesterday. Objective Data Objective Data Vital Signs: Vital Signs Temp Pulse Resp BP Pulse Ox O2 Del Method 98.4 F 56 L 16 148/56 H 95 Room Air 04/21/23 04:00 04/21/23 05:13 04/21/23 04:00 04/21/23 04:00 04/21/23 04:00 04/21/23 04:00 Oxygen Delivery Method Room Air Weight: 158 lb 1.143 oz Body Mass Index (BMI) 28.0 Intake & Output: Intake and Output for Last 24 Hours 04/19/23 04/20/23 04/21/23 23:59 23:59 23:59 Intake Total 110 / 110 978.33 / 978.33 Output Total 1200 / 1200 Balance -1090 / -1090 978.33 / 978.33 Lab / Micro Data 04/21/23 05:45 04/21/23 05:45 Labs: Laboratory Results - last 24 hr 04/20/23 09:48: WBC 10.8, RBC 4.72, Hgb 14.7, Hct 44.4, MCV 94.1, MCH 31.1, MCHC 33.1, RDW Std Deviation 41.5, RDW Coeff of Kylie 11.9, Plt Count 326, MPV 9.2, Immature Gran % (Auto) 0.400, Neut % (Auto) 87.2 H, Lymph % (Auto) 8.3 L, [place] % (Auto) 3.9, Eos % (Auto) 0.0, Baso % (Auto) 0.2, Absolute Neuts (auto) 9.4 H, Absolute Lymphs (auto) 0.89, Nucleated RBC % 0, Sodium 135 L, Potassium 3.8, Chloride 99, Carbon Dioxide 28.0, Anion Gap 8, BUN 17, Creatinine 0.99, Est GFR (MDRD) Af Amer 70, Est GFR (MDRD) Non-Af 58 L, BUN/Creatinine Ratio 17.2, Glucose 145 H, Calcium 9.6, Total Bilirubin 0.80, Direct Bilirubin 0.22, AST 23, ALT 19, Alkaline Phosphatase 93, Total Protein 7.6, Albumin 4.0, Globulin 3.6 04/20/23 11:26: Urine Color Yellow, Urine Clarity Sl. Cloudy, Urine pH 7.0, Ur Specific [place] 1.010, Urine Protein 30 H, Urine Glucose (UA) Normal, Urine Ketones Negative, Urine Occult Blood 150 H, Urine Nitrite Negative, Urine Bilirubin Negative, Urine Urobilinogen Normal, Ur Leukocyte Esterase 25 H, Urine RBC 10-25 SEEN, Urine WBC 0-5 SEEN, Ur Squamous Epith Cells 0-5 SEEN, Urine Bact eria 1+, Urine Mucus 0 SEEN 04/21/23 05:45: WBC 7.5, RBC 3.69 L, Hgb 11.5 L, Hct 35.3 L, MCV 95.7, MCH 31.2, MCHC 32.6, RDW Std Deviation 42.4, RDW Coeff of Kylie 12.3, Plt Count 235, MPV 8.9, Immature Gran % (Auto) 0.300, Neut % (Auto) 61.4, Lymph % (Auto) 27.4, [place] % (Auto) 8.6, Eos % (Auto) 1.9, Baso % (Auto) 0.4, Absolute Neuts (auto) 4.6, Absolute Lymphs (auto) 2.05, Nucleated RBC % 0, Sodium 140, Potassium 3.5, Chloride 105, Carbon Dioxide 30.0, Anion Gap 5, BUN 15, Creatinine 0.89, Estim Creat Clear Calc 43.79, Est GFR (MDRD) Af Amer 79, Est GFR (MDRD) Non-Af 65, BUN/Creatinine Ratio 16.8, Glucose 96, Calcium 8.5 Radiography Diagnostic Testing: Radiology Impression Abdomen/Pelvis CT 04/20/23 10:09 IMPRESSION: Small bowel obstruction down to the distal portion of the ileum. Small bowel loop seen in the right inguinal canal. Electronically Signed: Haseeb Frias MD at 12:20 EDT , KUB X-Ray 04/20/23 12:55 IMPRESSION: The tip of the nasogastric tube is in the second portion of the duodenum. Electronically Signed: Haseeb Frias MD at 13:31 EDT , KUB X-Ray 04/20/23 15:35 IMPRESSION: Unchanged position of NG tube with tip likely in the duodenum.. Otherwise, no change from prior study. Electronically Signed: Marky Chi MD at 17:58 EDT , KUB X-Ray 04/20/23 18:05 IMPRESSION: Slight interval retraction of NG tube with tip still in the duodenum. Otherwise, no change from prior. Electronically Signed: Marky Chi MD at 19:15 EDT , KUB X-Ray 04/20/23 21:40 IMPRESSION: Slight interval retraction of NG tube with tip likely gabino the antrum of the stomach versus 1st portion of the duodenum. Otherwise, no change from prior. Electronically Signed: Marky Chi MD at 23:08 EDT , Physical Exam Const oriented x3 Constitutional Narrative: Mild distress from her sore throat Resp normal respiratory effort GI GI Narrative: Nasogastric tube output less than 100 (since midnight), abdomen is minimally distended, soft and nontender to palpation. Narrative: I do not palpate any bulging in the right groin, patient does remark of some mild tenderness here with this exam Assessment & Plan Assessment/Plan (1) Small bowel obstruction: (2) Right inguinal hernia: PLAN: Plan Proceed to the operating room today for robot-assisted right inguinal hernia repair with mesh. Patient to be returned [facility] floor for ongoing monitoring postoperatively. I was notified by nursing shortly after rounds that patient has been passing gas she will likely have her nasogastric tube discontinued and be started with a diet Charges/Coding Visit Charges Inpatient E&M: 83135 Subs Hosp L2
[2023-04-21 07:03] LABS: Thyroid Stim Hormone (TSH) 2.09 uIU/mL (0.358-3.74)
[2023-04-21] MEDS: Potassium Chloride 10mEq/100mL 10 MEQ/100 ML IV.SOLN. 100 MEQ IV BOLUS ×4 (08:17→11:35)
--- NOTE | 2023-04-21 08:43 | PN.HOSP_ITS ---
Reason for Visit Reason for Visit: Diagnoses Unilateral inguinal hernia, without obstruction or gangrene, not specified as r ecurrent (04/20/23) Unspecified intestinal obstruction, unspecified as to partial versus complete ob struction (04/20/23) Subjective Subjective Reports her throat is sore from the NG tube but that her abdomen feels better th an yesterday Objective Data Objective Data Vital Signs: Vital Signs Temp Pulse Resp BP Pulse Ox O2 Del Method 97.9 F 66 16 154/60 H 96 Room Air 04/21/23 08:39 04/21/23 08:39 04/21/23 08:39 04/21/23 08:39 04/21/23 08:39 04/21/23 08:39 Oxygen Delivery Method Room Air Weight: 72.575 kg Body Mass Index (BMI) 28.3 Intake & Output: Intake and Output for Last 24 Hours 04/19/23 04/20/23 04/21/23 23:59 23:59 23:59 Intake Total 110 / 110 978.33 / 978.33 Output Total 1200 / 1200 Balance -1090 / -1090 978.33 / 978.33 Lab / Micro Data 04/21/23 05:45 04/21/23 05:45 Labs: Laboratory Results - last 24 hr 04/20/23 09:48: WBC 10.8, RBC 4.72, Hgb 14.7, Hct 44.4, MCV 94.1, MCH 31.1, MCHC 33.1, RDW Std Deviation 41.5, RDW Coeff of Kylie 11.9, Plt Count 326, MPV 9.2, Immature Gran % (Auto) 0.400, Neut % (Auto) 87.2 H, Lymph % (Auto) 8.3 L, [place] % (Auto) 3.9, Eos % (Auto) 0.0, Baso % (Auto) 0.2, Absolute Neuts (auto) 9.4 H, Absolute Lymphs (auto) 0.89, Nucleated RBC % 0, Sodium 135 L, Potassium 3.8, Chloride 99, Carbon Dioxide 28.0, Anion Gap 8, BUN 17, Creatinine 0.99, Est GFR (MDRD) Af Amer 70, Est GFR (MDRD) Non-Af 58 L, BUN/Creatinine Ratio 17.2, Glucose 145 H, Calcium 9.6, Total Bilirubin 0.80, Direct Bilirubin 0.22, AST 23, ALT 19, Alkaline Phosphatase 93, Total Protein 7.6, Albumin 4.0, Globulin 3.6 04/20/23 11:26: Urine Color Yellow, Urine Clarity Sl. Cloudy, Urine pH 7.0, Ur Specific [place] 1.010, Urine Protein 30 H, Urine Glucose (UA) Normal, Urine Ketones Negative, Urine Occult Blood 150 H, Urine Nitrite Negative, Urine Bilirubin Negative, Urine Urobilinogen Normal, Ur Leukocyte Esterase 25 H, Urine RBC 10-25 SEEN, Urine WBC 0-5 SEEN, Ur Squamous Epith Cells 0-5 SEEN, Urine Bacteria 1+, Urine Mucus 0 SEEN 04/21/23 05:45: WBC 7.5, RBC 3.69 L, Hgb 11.5 L, Hct 35.3 L, MCV 95.7, MCH 31.2, MCHC 32.6, RDW Std Deviation 42.4, RDW Coeff of Kylie 12.3, Plt Count 235, MPV 8.9, Immature Gran % (Auto) 0.300, Neut % (Auto) 61.4, Lymph % (Auto) 27.4, [place] % (Auto) 8.6, Eos % (Auto) 1.9, Baso % (Auto) 0.4, Absolute Neuts (auto) 4.6, Absolute Lymphs (auto) 2.05, Nucleated RBC % 0, Sodium 140, Potassium 3.5, Chloride 105, Carbon Dioxide 30.0, Anion Gap 5, BUN 15, Creatinine 0.89, Estim Creat Clear Calc 43.79, Est GFR (MDRD) Af Amer 79, Est GFR (MDRD) Non-Af 65, BUN/Creatinine Ratio 16.8, Glucose 96, Calcium 8.5, TSH 2.09 Radiography Diagnostic Testing: Radiology Impression Abdomen/Pelvis CT 04/20/23 10:09 IMPRESSION: Small bowel obstruction down to the distal portion of the ileum. Small bowel loop seen in the right inguinal canal. Electronically Signed: Haseeb Frias MD at 12:20 EDT , KUB X-Ray 04/20/23 12:55 IMPRESSION: The tip of the nasogastric tube is in the second portion of the duodenum. Electronically Signed: Haseeb Frias MD at 13:31 EDT , KUB X-Ray 04/20/23 15:35 IMPRESSION: Unchanged position of NG tube with tip likely in the duodenum.. Otherwise, no change from prior study. Electronically Signed: Marky Chi MD at 17:58 EDT , KUB X-Ray 04/20/23 18:05 IMPRESSION: Slight interval retraction of NG tube with tip still in the duodenum. Otherwise, no change from prior. Electronically Signed: Marky Chi MD at 19:15 EDT , KUB X-Ray 04/20/23 21:40 IMPRESSION: Slight interval retraction of NG tube with tip likely gabino the antrum of the stomach versus 1st portion of the duodenum. Otherwise, no change from prior. Electronically Signed: Marky Chi MD at 23:08 EDT , Physical Exam Narrative General: Alert, oriented, no apparent distress HEENT: Atraumatic, normocephalic Eyes: Anicteric, normal conjunctiva, extraocular movements grossly intact Neck: Supple Respiratory: Clear to auscultation bilaterally, normal respiratory effort Cardiovascular: Regular rate and rhythm GI: Soft, slightly tender, nondistended Extremities: No edema Musculoskeletal: Moving all extremities Neuro: No overt focal neurological deficits Skin: No rashes appreciated Psych: Cooperative Assessment & Plan Assessment/Plan (1) Inguinal hernia: (2) Small bowel obstruction: PLAN: Plan 1. Small bowel obstruction secondary to a right inguinal hernia ? The hernia was reduced ? Plan for surgical intervention tomorrow ? Can hold most of her oral medications and transition those to IV that we can ? Continue with the NG tube ? Continue with IV fluids -04/21: Plan for surgery today, remained n.p.o. with NG in place and pain control 2. HTN/HLD ? Blood pressures are stable, will monitor ? Continue with IV metoprolol can hold her oral blood pressure medications -04/21: We will be able to adjust medications postsurgery 3. Hypothyroidism ? Stable ? Can resume Synthroid once taking p.o. -04/21: TSH 2.09 4. GERD ? Stable ? Continue with IV PPI #DVT ppx: SCDs Sidra Montalvo MD Time spent in the patient's overall evaluation,decision-making process, review o f diagnostic data, adjustment of management, discussion with other providers, nursing nursing and ancillary staff involved in patient's care documentation, 36 minutes Charges/Coding Visit Charges Inpatient E&M: 24842 Subs Hosp L2
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
--- NOTE | 2023-04-21 11:25 | CASEMGMT ---
Addendum entered by Marychuy Schmidt 04/21/23 12:59: Received acceptance for [facility] to start on Monday. Original Note: Updated Shane at [facility] that current plan for dc is [facility] for SN, PT and OT pending acceptance.
--- NOTE | 2023-04-21 13:13 | NURSING ---
spoke w/ Shayla RN in AC re:pt lopressor held x2 doses d/t heart rate under 60, also that pt report passing flatus and has bs all quads this am
[2023-04-21] MEDS: Cefazolin 2 GM in 0.9% Normal Saline 100 ML IV (14:08)
[2023-04-21] MEDS: Bupivacaine 0.5% PF 10 ML VIAL (16:20)
--- NOTE | 2023-04-21 16:38 | OP.PCM_ITS ---
Report of Operation Date of Procedure: 04/21/23 Pre-Operative Diagnosis: Right inguinal hernia with recently incarcerated bowel and nidus of small bowel obstruction status post reduction Post-Operative Diagnosis: Right direct inguinal hernia with recently incarcerated balanitis with small bowel obstruction status post reduction Surgery/Procedure Performed:: Robot-assisted right inguinal hernia repair with mesh Description of Surgical Findings:: ? Omentum adherent to patient's wrinkled umbilical hernia mesh ? Small direct inguinal hernia defect containing fat and a long hernia sac Surgeon: Nathan Flores alterations workroom clerk: Abhijit Sheikh Type of Anesthesia: General/Supplemental Anesthesiologist: Oj Hunt Estimated Blood Loss (mL): 20 Description of Procedure: After appropriate identification the preoperative holding area the patient was brought to the operating room where she was positioned supine on the operating table. Preoperative antibiotics were completed and the patient was administered a general anesthetic. Patient's abdomen was then prepped and draped in usual sterile fashion. Formal timeout followed to confirm patient and procedure. Procedure was begun with Arceo entry just to the right of midline given the patient's reports of prior surgical history. A finger sweep was made to confirm peritoneal entry and pneumoperitoneum was established to 15 mmHg. Once pneumoperitoneum reached its set point pressure a right upper quadrant incision was made and a 8 mm robotic trocar was placed under direct visualization with the laparoscope. Follow-up laparoscopic investigation revealed significant adhesions of the omentum to the midline where patient's wrinkled mesh was present. Given that this omentum shrouded the left upper quadrant where we desired placement of her third port, I placed laparoscopic aleksandra and lysed the transparent adhesions. Still, there were number of thicker adhesions to the omentum and these were taken down with blunt traction. Then a third port was placed a hand's breath left of this index port under laparoscopic visualization. Patient was positioned in slight Trendelenburg and I performed a local block of the ilioinguinal nerve using 8 mL local anesthetic under laparoscopic visualization. The robot was docked in standard fashion. In this positioning I could visualize a direct abdominal wall defect. Robotically, a peritoneal flap was created on the right extending from the medial umbilical ligament to the level of the ASIS (external) and was bluntly dissected to expose the medial parietal compartment and lateral visceral compartments. Medially I could visualize the pubic tubercle and Emiliano's ligament while laterally I extended the dissection down to the level of the ASIS. The hernia sac was identified adjacent to the inferior epigastric vessels and traction was applied. This resulted in removal of a significant amount of preperitoneal fat, but a large amount of the hernia sac remained present. Additional selective electrocautery was required to make full reduction of the hernia sac. I then fully opened the space of Retzius and laterally opened the peritoneal flap to the level of the psoas muscle. It appeared readily apparent that the patient's round ligament would risk curling our mesh so I placed Weck clips across the midportion of the round ligament?well outside of the internal ring- and then divided between these clips. The peritoneal flap was inspected to ensure that dissection was complete. Is noted that identified a small dimple in the area of the patient's left groin but no true hernia. Therefore I proceeded with mesh placement on the right. A Bard 3D max, size medium, mid weight mesh was placed into the abdomen along with suture. The mesh was positioned within the preperitoneal pocket so that there was good medial and inferior overlap. It was then tacked to the admuniculum of the linea alba just superior to the pubic tubercle and laterally in a partial-thickness bite of the abdominal wall using a 3-0 Vicryl suture. The peritoneal flap was then closed with a running 3-0 V-Loc suture taking care to conceal the barbs of the suture beneath the peritoneum. As this closure proceeded, I hung the hernia sac vertically in front of an inadvertent peritoneal rent. Once the flap closure was complete, I undertook repair of peritoneal defects with 3-0 Vicryl. With the peritoneal defect closed, sutures were systematically removed from the peritoneum and the pneumoperitoneum was evacuated before removing the trocars. The port sites were closed at the skin with running 4-0 Monocryl in a subcuticular fashion. Steri-Strips and OpSite's were used as dressings. Patient was then awoken from anesthetic and transferred to PACU for ongoing recovery. Grafts/Implants Used: Size med 3D max mid anatomic mesh, lot [id number], [id number] Complications None Admit VTE Documentation VTE Mechan Device Prophylaxis: SCD's Procedures Digestive 40xxx-49xxx: 11309 Lap ing hernia repair init
[2023-04-22] MEDS: BENZOCAINE/MENTHOL 1 LOZENGE MUCOUS MEM ×3 (00:29→21:24)
[2023-04-22 01:18] VITALS: BP 167/70; PULSE 78; RESP 18; TEMP 36.6; O2SAT 98
[2023-04-22 01:27] VITALS: BP 167/70; PULSE 78
[2023-04-22] MEDS: Metoprolol Tartrate 5 MG/5 ML Vial IV ×2 (01:27→05:36)
[2023-04-22 03:25] VITALS: BMI 27.3
[2023-04-22 05:25] VITALS: BP 157/62; PULSE 77; RESP 18; TEMP 36.7; O2SAT 96
[2023-04-22 05:34] LABS: Basophil# 0.02 X10^3/uL; Basophil% 0.3 % (0-1); Eosinophil# 0.12 X10^3/uL; Eosinophils% 1.7 % (0-5); Hematocrit 33.6 % (37-47); Hemoglobin 11.2 g/dL (12.0-15.0); Lymphocyte % 18.5 % (19-41); Mean Corp Hgb Conc 33.3 g/dL (32-36); Mean Corpuscular Hgb 31.5 pg (27.0-32.0); Mean Corpuscular Volume 94.6 fL (81-99); Monocyte# 0.53 X10^3/uL; Monocyte% 7.5 % (0-10); NRBC Flagged by Analyzer 0 % (0-5); Neutrophil # 5.03 X10^3/uL (2.7-7.7); Neutrophil % 71.7 % (47-70); Platelet Count 213 K/mm3 (150-450); RBC Distribution Width CV 11.9 % (11.6-14.6); RBC Distribution Width SD 41.8 fl (35.1-43.9); Red Blood Count 3.55 M/mm3 (4.2-5.4)
[2023-04-22 05:36] VITALS: BP 157/62; PULSE 77
[2023-04-22] MEDS: Lactated Ringers 1,000 ML 100 ML IV (05:37)
[2023-04-22 05:59] LABS: Anion Gap 4 (5-15); BUN 11 mg/dL (7-18); BUN/Creat Ratio 14.8 RATIO (10-20); Calcium,Total 8.1 mg/dL (8.5-10.1); Chloride 104 mmol/L (98-107); Creatinine, Serum 0.74 mg/dL (0.55-1.02); EST Glomerular Filtration Rate 80 mL/min (>60); Est Glom Filt Rate - Afr Amer 97 mL/min (>60); Estimated Creatinine Clearance 38.97 ml/min; Glucose 96 mg/dL (74-106); Potassium 3.7 mmol/L (3.5-5.1); Sodium Level 138 mmol/L (136-145)
--- NOTE | 2023-04-22 08:48 | PN.HOSP_ITS ---
Reason for Visit Reason for Visit: Diagnoses Unilateral inguinal hernia, without obstruction or gangrene, not specified as r ecurrent (04/20/23) Unspecified intestinal obstruction, unspecified as to partial versus complete ob struction (04/20/23) Subjective Subjective Patient complaining of her throat being sore, thus far tolerating liquids, abdom en sore but feels better Objective Data Objective Data Vital Signs: Vital Signs Temp Pulse Resp BP Pulse Ox O2 Del Method 98.1 F 77 18 157/62 H 96 Room Air 04/22/23 05:25 04/22/23 05:36 04/22/23 05:25 04/22/23 05:36 04/22/23 05:25 04/22/23 05:25 Oxygen Delivery Method Room Air Weight: 69.9 kg Body Mass Index (BMI) 27.3 Intake & Output: Intake and Output for Last 24 Hours 04/20/23 04/21/23 04/22/23 23:59 23:59 23:59 Intake Total 110 / 110 4834.99 / 4834.99 815 / 815 Output Total 1200 / 1200 1150 / 1150 300 / 300 Balance -1090 / -1090 3684.99 / 3684.99 515 / 515 Lab / Micro Data 04/22/23 05:19 04/22/23 05:19 Labs: Laboratory Results - last 24 hr 04/22/23 05:19: WBC 7.0, RBC 3.55 L, Hgb 11.2 L, Hct 33.6 L, MCV 94.6, MCH 31.5, MCHC 33.3, RDW Std Deviation 41.8, RDW Coeff of Kylie 11.9, Plt Count 213, MPV 9.0, Immature Gran % (Auto) 0.300, Neut % (Auto) 71.7 H, Lymph % (Auto) 18.5 L, [place] % (Auto) 7.5, Eos % (Auto) 1.7, Baso % (Auto) 0.3, Absolute Neuts (auto) 5.0, Absolute Lymphs (auto) 1.30, Nucleated RBC % 0, Sodium 138, Potassium 3.7, Chloride 104, Carbon Dioxide 30.0, Anion Gap 4 L, BUN 11, Creatinine 0.74, Estim Creat Clear Calc 38.97, Est GFR (MDRD) Af Amer 97, Est GFR (MDRD) Non-Af 80, BUN/Creatinine Ratio 14.8, Glucose 96, Calcium 8.1 L Physical Exam Narrative General: Alert, oriented, no apparent distress HEENT: Atraumatic, normocephalic Eyes: Anicteric, normal conjunctiva, extraocular movements grossly intact Neck: Supple Respiratory: Clear to auscultation bilaterally, normal respiratory effort Cardiovascular: Regular rate GI: Soft, mildly tender without rebound, guarding, rigidity, nondistended Extremities: No edema Musculoskeletal: Moving all extremities Neuro: No overt focal neurological deficits Skin: No rashes appreciated Psych: Cooperative Assessment & Plan Assessment/Plan (1) Inguinal hernia: (2) Small bowel obstruction: PLAN: Plan 1. Small bowel obstruction secondary to a right inguinal hernia ? The hernia was reduced ? Plan for surgical intervention tomorrow ? Can hold most of her oral medications and transition those to IV that we can ? Continue with the NG tube ? Continue with IV fluids -04/21: Plan for surgery today, remained n.p.o. with NG in place and pain control -04/22: Patient to the OR yesterday for robot-assisted right inguinal hernia repair with mesh placement. Patient's diet started with clear liquids and has been advanced to full liquids, doing well from medical perspective, further management per surgery 2. HTN/HLD ? Blood pressures are stable, will monitor ? Continue with IV metoprolol can hold her oral blood pressure medications -04/21: We will be able to adjust medications postsurgery -04/22: Patient's labetalol and losartan resumed 3. Hypothyroidism ? Stable ? Can resume Synthroid once taking p.o. -04/21: TSH 2.09 -04/22: Resume Synthroid 4. GERD ? Stable ? Continue with PPI #DVT ppx: SCDs Sidra Montalvo MD Time spent in the patient's overall evaluation,decision-making process, review of diagnostic data, adjustment of management, discussion with other providers, nursing nursing and ancillary staff involved in patient's care documentation, 36 minutes Charges/Coding Visit Charges Inpatient E&M: 20136 Subs Hosp L2
[2023-04-22] MEDS: Acetaminophen 325 MG Tablet 650 MG PO (08:55)
[2023-04-22 09:16] VITALS: O2SAT 96
[2023-04-22] MEDS: hydroCHLOROthiazide 12.5mg 12.5 MG PO (10:45)
[2023-04-22] MEDS: Losartan Potassium 50 MG Tablet PO (10:45)
[2023-04-22] MEDS: Labetalol 100 MG Tablet PO (10:46)
[2023-04-22] MEDS: Levothyroxine 100 MCG Tablet PO (10:46)
[2023-04-22] MEDS: Pantoprazole Sodium 40 MG Tablet PO (13:29)
--- NOTE | 2023-04-22 15:36 | DCINST_ITS ---
Discharge Instructions Diet Discharge Diet: Soft diet Activity Discharge Activity: May Not Drive (While taking narcotic pain medication) and May Shower Ice area for (Minutes): 20 Lifting Restrictions: No lifting greater than 10 pounds for the next 5 weeks Dressing / Incision Call your doctor if your incision/area has: Continuous Slow Oozing, Increased Pain/ Swelling, Increased Redness, Foul Smelling Discharge and Swelling at the incision site Call your doctor if you observe: Fever of 101 or Higher, Inability to urinate and Inability to have a bowel movement Cleanse incision/area with: Soap & Water and Keep Dressing Clean & Dry Follow Up Care Please Follow Up With: Nathan Flores MD When: 1 week postop Test Results: Test results from this visit will be discussed in further detail at your follow- up appointment, if applicable. Discharge Plan Admission Admit Date/Time: 04/20/23 15:30 Primary Reason for Your Visit: Incarcerated inguinal hernia with small bowel obstruction Attending Provider: Nathan Flores Primary Care Provider: Antonia Louis Consulting Providers: Sidra Montalvo Discharge Orders/Prescriptions Prescriptions: New oxycodone 5 mg Tablet 5 mg PO Q6H PRN (Reason: pain) 3 Days Qty: 10 0RF Continued Move Free Joint Health 750 mg-100 mg- 1.65 mg-108 mg tablet 1 tab PO BID calcium carbonate 600 mg calcium (1,500 mg) tablet 1,200 mg PO DAILY VITAMIN D 3 500 mg tablet 500 mg PO DAILY Patient Comments: 500 UNITS DAILY (DME) Right wrist splint See Rx Instructions .Route .MEDSUPPLY Qty: 1 0RF Rx Instructions: Use as directed for right carpal tunnel syndrome tumeric See Rx Instructions PO .COMPLEX Rx Instructions: Take one tab po dailyorally; cyanocobalamin (vitamin B-12) 500 mcg tablet 5,000 mcg PO DAILY@0800 magnesium 250 mg tablet 250 mg PO.IVFORM DAILY multivitamin [Daily Vitamin Formula] Tablet 1 tab PO DAILY Patient Comments: take one tablet by mouth once daily Gemtesa 75 mg tablet 75 mg PO DAILY aspirin 81 mg capsule 81 mg PO DAILY hydrochlorothiazide 12.5 mg tablet 12.5 mg PO DAILY Qty: 90 3RF Hold Instructions: Duplicate Order labetalol 100 mg tablet 100 mg PO DAILY Qty: 90 3RF losartan 50 mg tablet 50 mg PO DAILY Qty: 90 3RF levothyroxine 100 mcg tablet 100 mcg PO QHS Qty: 90 3RF omeprazole 40 mg capsule,delayed release(DR/EC) 40 mg PO 1400 Qty: 90 3RF pentoxifylline 400 mg tablet extended release 400 mg PO DAILY Qty: 90 3RF Rx Instructions: must administer with a meal/food Referrals / Follow Up: Antonia Louis MD [Primary Care Provider] - Disposition Disposition (needs filled in before D/C Order can be placed): Home, Self Care
--- NOTE | 2023-04-22 16:58 | PCM.PN.SRG ---
Subjective Subjective Patient is postoperative day 1 from robot-assisted right inguinal hernia repair with mesh. She was quite irritable this morning and stated this was due to her lack of sleep from a sore throat and eye irritation. However, when she was revisited in the afternoon she is feeling better. She confirms regular passage of flatus with her diet. Objective Data Objective Data Vital Signs: Vital Signs Temp Pulse Resp BP Pulse Ox O2 Del Method 98.1 F 77 18 157/62 H 96 Room Air 04/22/23 05:25 04/22/23 05:36 04/22/23 05:25 04/22/23 05:36 04/22/23 09:16 04/22/23 09:16 Oxygen Delivery Method Room Air Weight: 154 lb 1.65 oz Body Mass Index (BMI) 27.3 Intake & Output: Intake and Output for Last 24 Hours 04/20/23 04/21/23 04/22/23 23:59 23:59 23:59 Intake Total 110 / 110 4834.99 / 4834.99 1877 / 1877 Output Total 1200 / 1200 1150 / 1150 900 / 900 Balance -1090 / -1090 3684.99 / 3684.99 977 / 977 Lab / Micro Data 04/22/23 05:19 04/22/23 05:19 Labs: Laboratory Results - last 24 hr 04/22/23 05:19: WBC 7.0, RBC 3.55 L, Hgb 11.2 L, Hct 33.6 L, MCV 94.6, MCH 31.5, MCHC 33.3, RDW Std Deviation 41.8, RDW Coeff of Yklie 11.9, Plt Count 213, MPV 9.0, Immature Gran % (Auto) 0.300, Neut % (Auto) 71.7 H, Lymph % (Auto) 18.5 L, [place] % (Auto) 7.5, Eos % (Auto) 1.7, Baso % (Auto) 0.3, Absolute Neuts (auto) 5.0, Absolute Lymphs (auto) 1.30, Nucleated RBC % 0, Sodium 138, Potassium 3.7, Chloride 104, Carbon Dioxide 30.0, Anion Gap 4 L, BUN 11, Creatinine 0.74, Estim Creat Clear Calc 38.97, Est GFR (MDRD) Af Amer 97, Est GFR (MDRD) Non-Af 80, BUN/Creatinine Ratio 14.8, Glucose 96, Calcium 8.1 L Physical Exam Const oriented x3 and no apparent distress Resp normal respiratory effort GI GI Narrative: Nondistended, operative dressings intact without drainage. Patient is minimally tender to palpation Assessment & Plan Assessment/Plan (1) Small bowel obstruction: (2) Right inguinal hernia: PLAN: Plan Patient is postoperative day 1 from robot-assisted right inguinal hernia repair with mesh. She is tolerated the operation well with minimal postoperative discomfort. She is passing gas after advancement of her diet and having no nausea or vomiting. Still, I will require her to have a bowel movement before she discharges given that she presented with a bowel obstruction. Home medications have been reordered. Should patient have a bowel movement yet today, I would plan for discharge, but do suspect she may need to wait until tomorrow. Charges/Coding Visit Charges Inpatient E&M: 15972 Subs Hosp L2
[2023-04-22 20:21] VITALS: BP 155/62; PULSE 83; RESP 18; TEMP 36.8; O2SAT 96
[2023-04-22] MEDS: Lactated Ringers 1,000 ML 15 ML IV (21:24)
[2023-04-23 05:47] VITALS: BP 155/60; PULSE 70; RESP 16; TEMP 36.6; O2SAT 94
[2023-04-23] MEDS: Levothyroxine 100 MCG Tablet PO (05:50)
[2023-04-23] MEDS: BENZOCAINE/MENTHOL 1 LOZENGE MUCOUS MEM (05:50)
[2023-04-23 06:30] LABS: Absolute Lymphocyte Count 1.52 X10^3/uL (0.83-4.51); Absolute Neutrophil Count 4.3 X10^3/uL (2.0-7.7); Basophil# 0.02 X10^3/uL; Basophil% 0.3 % (0-1); Eosinophil# 0.29 X10^3/uL; Eosinophils% 4.3 % (0-5); Hematocrit 31.8 % (37-47); Hemoglobin 10.8 g/dL (12.0-15.0); Lymphocyte # 1.52 X10^3/ul (0.83-4.51); Lymphocyte % 22.5 % (19-41); Mean Corpuscular Volume 94.1 fL (81-99); Mean Platelet Vol. 9.4 fl (6.2-12.0); Monocyte# 0.59 X10^3/uL; Monocyte% 8.7 % (0-10); NRBC Flagged by Analyzer 0 % (0-5); Neutrophil # 4.32 X10^3/uL (2.7-7.7); Neutrophil % 64.1 % (47-70); Platelet Count 204 K/mm3 (150-450); RBC Distribution Width CV 11.9 % (11.6-14.6); RBC Distribution Width SD 41.2 fl (35.1-43.9); Red Blood Count 3.38 M/mm3 (4.2-5.4); White Blood Count 6.8 K/mm3 (4.4-11.0)
[2023-04-23 06:50] VITALS: BMI 29.3
[2023-04-23 07:05] LABS: Anion Gap 6 (5-15); BUN 12 mg/dL (7-18); BUN/Creat Ratio 19.1 RATIO (10-20); Calcium,Total 8.3 mg/dL (8.5-10.1); Chloride 104 mmol/L (98-107); Creatinine, Serum 0.63 mg/dL (0.55-1.02); EST Glomerular Filtration Rate 98 mL/min (>60); Est Glom Filt Rate - Afr Amer 118 mL/min (>60); Estimated Creatinine Clearance 38.97 ml/min; Glucose 111 mg/dL (74-106); Potassium 3.2 mmol/L (3.5-5.1); Sodium Level 139 mmol/L (136-145)
[2023-04-23] MEDS: hydroCHLOROthiazide 12.5mg 12.5 MG PO (08:11)
[2023-04-23] MEDS: Losartan Potassium 50 MG Tablet PO (08:11)
[2023-04-23] MEDS: Labetalol 100 MG Tablet PO (08:11)
--- NOTE | 2023-04-23 08:35 | PN.SURG_ITS ---
Subjective Subjective Patient seen and examined during AM rounds. She is found resting in bed. She confirms that she had a better overnight course. She also confirms nursing reports that she had a bowel movement yesterday. She denies any abdominal discomfort. Objective Data Objective Data Vital Signs: Vital Signs Temp Pulse Resp BP Pulse Ox O2 Del Method 97.8 F 70 16 155/60 H 94 Room Air 04/23/23 05:47 04/23/23 05:47 04/23/23 05:47 04/23/23 05:47 04/23/23 05:47 04/23/23 08:15 Oxygen Delivery Method Room Air Weight: 165 lb 9.074 oz Body Mass Index (BMI) 29.3 Intake & Output: Intake and Output for Last 24 Hours 04/21/23 04/22/23 04/23/23 23:59 23:59 23:59 Intake Total 4834.99 / 4834.99 4243 / 4243 350 / 350 Output Total 1150 / 1150 1400 / 1400 850 / 850 Balance 3684.99 / 3684.99 2843 / 2843 -500 / -500 Lab / Micro Data 04/23/23 05:54 04/23/23 05:54 Labs: Laboratory Results - last 24 hr 04/23/23 05:54: WBC 6.8, RBC 3.38 L, Hgb 10.8 L, Hct 31.8 L, MCV 94.1, MCH 32.0, MCHC 34.0, RDW Std Deviation 41.2, RDW Coeff of Kylie 11.9, Plt Count 204, MPV 9.4, Immature Gran % (Auto) 0.100, Neut % (Auto) 64.1, Lymph % (Auto) 22.5, [place] % (Auto) 8.7, Eos % (Auto) 4.3, Baso % (Auto) 0.3, Absolute Neuts (auto) 4.3, Absolute Lymphs (auto) 1.52, Nucleated RBC % 0, Sodium 139, Potassium 3.2 L, Chloride 104, Carbon Dioxide 29.0, Anion Gap 6, BUN 12, Creatinine 0.63, Estim Creat Clear Calc 38.97, Est GFR (MDRD) Af Amer 118, Est GFR (MDRD) Non-Af 98, BUN/Creatinine Ratio 19.1, Glucose 111 H, Calcium 8.3 L Physical Exam Const oriented x3 and no apparent distress Resp normal respiratory effort GI GI Narrative: Nondistended, operative dressings initially intact are removed and Steri-Strips remain in place. There is no drainage from her wounds. Patient denies any tenderness with palpation. Assessment & Plan Assessment/Plan (1) Small bowel obstruction: (2) Right inguinal hernia: PLAN: Plan Patient is postoperative day 2 from robot-assisted right inguinal hernia repair with mesh. Mrs. Javier had complete return of bowel function last evening, however was unable to secure a ride until today. Given this positive clinical improvement will discharge today with expectation for outpatient follow-up in 7 to 10 days. Patient is reminded of this request. She will call the office on Monday to schedule. Prior discussions around activity limitations were also reviewed and patient is to adhere to a 10 pound maximum for the next 5 weeks. Charges/Coding Visit Charges Inpatient E&M: 61948 Subs Hosp L2
--- NOTE | 2023-04-23 08:57 | PCM.PN.HOSP ---
Reason for Visit Reason for Visit: Diagnoses Unilateral inguinal hernia, without obstruction or gangrene, not specified as recurrent (04/20/23) Unspecified intestinal obstruction, unspecified as to partial versus complete obstruction (04/20/23) Personal history of other diseases of the digestive system (04/20/23) Other specified postprocedural states (04/20/23) Subjective Subjective Feeling better, abdomen improving, had bowel movement, tolerating diet, has a little bit of pain in her right arm but no other complaints Objective Data Objective Data Vital Signs: Vital Signs Temp Pulse Resp BP Pulse Ox O2 Del Method 97.8 F 70 16 155/60 H 94 Room Air 04/23/23 05:47 04/23/23 05:47 04/23/23 05:47 04/23/23 05:47 04/23/23 05:47 04/23/23 08:15 Oxygen Delivery Method Room Air Weight: 75.1 kg Body Mass Index (BMI) 29.3 Intake & Output: Intake and Output for Last 24 Hours 04/21/23 04/22/23 04/23/23 23:59 23:59 23:59 Intake Total 4834.99 / 4834.99 4243 / 4243 350 / 350 Output Total 1150 / 1150 1400 / 1400 850 / 850 Balance 3684.99 / 3684.99 2843 / 2843 -500 / -500 Lab / Micro Data 04/23/23 05:54 04/23/23 05:54 Labs: Laboratory Results - last 24 hr 04/23/23 05:54: WBC 6.8, RBC 3.38 L, Hgb 10.8 L, Hct 31.8 L, MCV 94.1, MCH 32.0, MCHC 34.0, RDW Std Deviation 41.2, RDW Coeff of Kylie 11.9, Plt Count 204, MPV 9.4, Immature Gran % (Auto) 0.100, Neut % (Auto) 64.1, Lymph % (Auto) 22.5, [place] % (Auto) 8.7, Eos % (Auto) 4.3, Baso % (Auto) 0.3, Absolute Neuts (auto) 4.3, Absolute Lymphs (auto) 1.52, Nucleated RBC % 0, Sodium 139, Potassium 3.2 L, Chloride 104, Carbon Dioxide 29.0, Anion Gap 6, BUN 12, Creatinine 0.63, Estim Creat Clear Calc 38.97, Est GFR (MDRD) Af Amer 118, Est GFR (MDRD) Non-Af 98, BUN/Creatinine Ratio 19.1, Glucose 111 H, Calcium 8.3 L Physical Exam Narrative General: Alert, oriented, no apparent distress HEENT: Atraumatic, normocephalic Eyes: extraocular movements grossly intact Neck: Supple Respiratory: normal respiratory effort Cardiovascular: no edema appreciated GI: nondistended, soft Extremities: Moving all extremities Neuro: No overt focal neurological deficits Psych: Cooperative Assessment & Plan Assessment/Plan (1) Inguinal hernia: (2) Small bowel obstruction: PLAN: Plan 1. Small bowel obstruction secondary to a right inguinal hernia ? The hernia was reduced ? Plan for surgical intervention tomorrow ? Can hold most of her oral medications and transition those to IV that we can ? Continue with the NG tube ? Continue with IV fluids -04/21: Plan for surgery today, remained n.p.o. with NG in place and pain control -04/22: Patient to the OR yesterday for robot-assisted right inguinal hernia repair with mesh placement. Patient's diet started with clear liquids and has been advanced to full liquids, doing well from medical perspective, further management per surgery -04/23: Patient stated yesterday she had not had a bowel movement, diet advanced to transitional yesterday evening and she has since had a bowel movement and is tolerating diet, dispo per surgery 2. HTN/HLD ? Blood pressures are stable, will monitor ? Continue with IV metoprolol can hold her oral blood pressure medications -04/21: We will be able to adjust medications postsurgery -04/22: Patient's labetalol and losartan resumed -04/23: Patient will need to follow with PCP as home medications for blood pressure have potential to be optimized, given patient's acute illness possibly contributing to her hypertension do not think this needs to be done acutely especially patient to be discharged in next 1 to 2 days however can consider if she needs prolonged inpatient care 3. Hypothyroidism ? Stable ? Can resume Synthroid once taking p.o. -04/21: TSH 2.09 -04/22: Resume Synthroid 4. GERD ? Stable ? Continue with PPI #DVT ppx: SCDs Sidra Montalvo MD Time spent in the patient's overall evaluation,decision-making process, review of diagnostic data, adjustment of management, discussion with other providers, nursing nursing and ancillary staff involved in patient's care documentation, 36 minutes Charges/Coding Visit Charges Inpatient E&M: 56627 Subs Hosp L2
[2023-04-23 09:02] VITALS: BP 156/60; PULSE 63; RESP 16; TEMP 36.6; O2SAT 95
[2023-04-23] MEDS: Potassium Chloride 10mEq/100mL 10 MEQ/100 ML IV.SOLN. 100 MEQ IV BOLUS ×2 (09:29→10:43)
--- NOTE | 2023-04-23 11:16 | DS.PCM_ITS ---
Providers Date of Admission: 04/20/23 Primary Care Physician: Dr. Antonia Louis MD Reason For Visit: SMALL BOWEL OBSTRUCTION Diagnosis Discharge Diagnosis (1) Small bowel obstruction: Status: Acute Code(s): K56.609 - Unspecified intestinal obstruction, unspecified as to partial versus complete obstruction (2) Right inguinal hernia: Status: Acute Code(s): K40.90 - Unilateral inguinal hernia, without obstruction or gangrene, not specified as recurrent Plan Patient is postoperative day 2 from robot-assisted right inguinal hernia repair with mesh. Mrs. Javier had complete return of bowel function last evening, however was unable to secure a ride until today. Given this positive clinical improvement will discharge today with expectation for outpatient follow-up in 7 to 10 days. Patient is reminded of this request. She will call the office on Monday to schedule. Prior discussions around activity limitations were also reviewed and patient is to adhere to a 10 pound maximum for the next 5 weeks. Medications at Discharge Home Medications glucosam 750 mg-chondroi 100 mg-hyalur 1.65 mg-CF borate 108 mg tablet ([employer]) 1 tab PO BID 05/31/21 VITAMIN D 3 500 mg PO DAILY 12/17/21 calcium carbonate 600 mg calcium (1,500 mg) tablet 1,200 mg PO DAILY 12/17/21 cyanocobalamin (vitamin B-12) 500 mcg tablet 5,000 mcg PO DAILY@0800 12/17/21 magnesium 250 mg PO.IVFORM DAILY 02/08/22 Right wrist splint #1 ea 08/23/22 hydrochlorothiazide 12.5 mg tablet 12.5 mg PO DAILY #90 tabs 12/30/22 labetalol 100 mg tablet 100 mg PO DAILY #90 tabs 12/30/22 losartan 50 mg tablet 50 mg PO DAILY #90 tabs 12/30/22 tumeric See Rx Instructions PO .COMPLEX 01/04/23 multivitamin (Daily Vitamin Formula tablet) 1 tab PO DAILY 03/10/23 vibegron 75 mg tablet (Gemtesa) 75 mg PO DAILY 03/10/23 aspirin 81 mg capsule 81 mg PO DAILY 03/13/23 levothyroxine 100 mcg tablet 100 mcg PO QHS #90 tabs 03/22/23 omeprazole 40 mg capsule,delayed release 40 mg PO 1400 #90 caps 03/22/23 pentoxifylline 400 mg tablet,extended release 400 mg PO DAILY #90 tabs 03/22/23 oxycodone 5 mg tablet 5 mg PO Q6H PRN pain 3 days #10 tabs 04/22/23 Hospital Course Operations - (Robotic right inguinal hernia repair with mesh) Summary of Care Provided Hospital Course: Patient is a 77-year-old female who presented to [facility] ER with complaints of acute onset right lower quadrant discomfort and associated nausea vomiting. Ultimately her work-up showed that she had a bowel obstruction with incarcerated small intestine within a right inguinal hernia causing this obstruction. This bowel was successfully reduced in the ER and patient was admitted with a nasogastric tube with plans for urgent hernia repair the following day. An uncomplicated robotic right inguinal hernia repair with mesh placement was performed 04/21/2023. Patient was returned to the floor to monitor for bowel function and tolerance of a diet. Demonstrated tolerance of a diet and late in the day on postoperative day 1 did have return of bowel function. Unfortunately patient was unable to secure a ride given the late hour so she was ultimately discharged postoperative day 2 and further improved condition. Patient was provided with detailed activity restrictions?including no lifting greater than 10 pounds for 5 weeks postoperatively. She is also informed the expectation for outpatient follow-up approximately 7 to 10 days after her operation. Physical Exam Const alert, oriented x3 and no apparent distress Resp normal respiratory effort GI GI Narrative: Soft, nondistended, nontender to palpation, port site dressings with Steri- Strips intact Weight / BMI Weight Weight: 165 lb 9.074 oz Body Mass Index (BMI) 29.3 ABG / Lab / Microbiology Data 04/23/23 05:54 04/23/23 05:54 Laboratory: Laboratory Results - last 24 hr 04/23/23 05:54: WBC 6.8, RBC 3.38 L, Hgb 10.8 L, Hct 31.8 L, MCV 94.1, MCH 32.0, MCHC 34.0, RDW Std Deviation 41.2, RDW Coeff of Kylie 11.9, Plt Count 204, MPV 9.4, Immature Gran % (Auto) 0.100, Neut % (Auto) 64.1, Lymph % (Auto) 22.5, [place] % (Auto) 8.7, Eos % (Auto) 4.3, Baso % (Auto) 0.3, Absolute Neuts (auto) 4.3, Absolute Lymphs (auto) 1.52, Nucleated RBC % 0, Sodium 139, Potassium 3.2 L, Chloride 104, Carbon Dioxide 29.0, Anion Gap 6, BUN 12, Creatinine 0.63, Estim Creat Clear Calc 38.97, Est GFR (MDRD) Af Amer 118, Est GFR (MDRD) Non-Af 98, BUN/Creatinine Ratio 19.1, Glucose 111 H, Calcium 8.3 L D/C Instructions Discharge Diet: Soft diet May shower in (days): 2 Ice area for (Minutes): 20 Call your doctor if your incision/area has: Continuous Slow Oozing, Increased Pain/ Swelling, Increased Redness, Foul Smelling Discharge and Swelling at the incision site Call your doctor if you observe: Fever of 101 or Higher, Inability to urinate and Inability to have a bowel movement Cleanse incision/area with: Soap & Water and Keep Dressing Clean & Dry Please Follow Up With: Nathan Flores MD When: 1 week postop Meaningful Use Info Meaningful Use Diagnoses (Choose all that apply): None applicable Discharge Plan Admission Admit Date/Time: 04/20/23 15:30 Primary Reason for Your Visit: Incarcerated inguinal hernia with small bowel obstruction Attending Provider: Nathan Flores Primary Care Provider: Antonia Louis Consulting Providers: Sidra Montalvo Discharge Orders/Prescriptions Prescriptions: New oxycodone 5 mg Tablet 5 mg PO Q6H PRN (Reason: pain) 3 Days Qty: 10 0RF Continued Move Free Joint Health 750 mg-100 mg- 1.65 mg-108 mg tablet 1 tab PO BID calcium carbonate 600 mg calcium (1,500 mg) tablet 1,200 mg PO DAILY VITAMIN D 3 500 mg tablet 500 mg PO DAILY Patient Comments: 500 UNITS DAILY (DME) Right wrist splint See Rx Instructions .Route .MEDSUPPLY Qty: 1 0RF Rx Instructions: Use as directed for right carpal tunnel syndrome tumeric See Rx Instructions PO .COMPLEX Rx Instructions: Take one tab po dailyorally; cyanocobalamin (vitamin B-12) 500 mcg tablet 5,000 mcg PO DAILY@0800 magnesium 250 mg tablet 250 mg PO.IVFORM DAILY multivitamin [Daily Vitamin Formula] Tablet 1 tab PO DAILY Patient Comments: take one tablet by mouth once daily Gemtesa 75 mg tablet 75 mg PO DAILY aspirin 81 mg capsule 81 mg PO DAILY hydrochlorothiazide 12.5 mg tablet 12.5 mg PO DAILY Qty: 90 3RF Hold Instructions: Duplicate Order labetalol 100 mg tablet 100 mg PO DAILY Qty: 90 3RF losartan 50 mg tablet 50 mg PO DAILY Qty: 90 3RF levothyroxine 100 mcg tablet 100 mcg PO QHS Qty: 90 3RF omeprazole 40 mg capsule,delayed release(DR/EC) 40 mg PO 1400 Qty: 90 3RF pentoxifylline 400 mg tablet extended release 400 mg PO DAILY Qty: 90 3RF Rx Instructions: must administer with a meal/food Referrals / Follow Up: Antonia Louis MD [Primary Care Provider] - Disposition Disposition (needs filled in before D/C Order can be placed): Home, Self Care Charges/Coding Visit Charges Inpatient E&M: 26660 Disch Hosp
[2023-04-23 11:58] VITALS: BP 118/51; PULSE 68; RESP 16; TEMP 36.6; O2SAT 97
[2023-04-23] MEDS: Potassium Chloride 10mEq/100mL 10 MEQ/100 ML IV.SOLN. 80 MEQ IV BOLUS (12:44)
[2023-04-23] MEDS: Potassium Chloride Oral Tablet 20 MEQ 40 MEQ PO (14:18)
[2023-04-23] MEDS: Pantoprazole Sodium 40 MG Tablet PO (14:18)
== END 2023-04-23 15:37 | disposition home health service (06) | DRG 352 ==
LOC: ED 12:45 → MS3 13:08
PROVIDERS: Internal Medicine; Physician Assistant; Admitting Provider Surgery; Emergency Provider Emergency Medicine; PCP Internal Medicine; Visit Provider Surgery
PROC: 0YU54JZ Supplement Right Inguinal Region with Synthetic Substitute, Percutaneous Endoscopic Approach (ICD-10-PCS; principal; 2023-04-21 13:25)
DX: K40.30 Unilateral inguinal hernia, with obstruction, without gangrene, not specified as recurrent (principal); E03.9 Hypothyroidism, unspecified; J44.9 Chronic obstructive pulmonary disease, unspecified; I10 Essential (primary) hypertension; E78.5 Hyperlipidemia, unspecified; K21.9 Gastro-esophageal reflux disease without esophagitis
CPT/HCPCS: 36415; 74018; 74177; 80048; 80076; 81001; 84443; 85025; 93005; 94668; 97110; 97116; 97161; 97166; 97535; 97802; 99285; J7120; Q9967; A4216; J2405

== ENCOUNTER → 2023-08-16 | Outpatient (CLI) | payer MEDICARE, SELFPAY ==
--- NOTE | 2023-08-16 12:52 | BI_ITS ---
MAMMOGRAPHY - BILATERAL SCREENING 3-D TOMOSYNTHESIS REASON FOR EXAM: Female, 77 years old. Routine annual screening mammogram. PERTINENT HISTORY: No significant family history. TECHNIQUE: 2-D mammograms and 3-D Tomosynthesis of the breast (s) were performed. CAD was performed. COMPARISON: August 11, 2022, July 29, 2021 FINDINGS: Predominantly fatty replaced breast tissue unchanged. Stable benign calcifications. No dominant mass is, suspicious microcalcifications, asymmetries, skin thickening or nipple retraction. BI/SCRN MAMM (CAD)W/PAUL BILAT IMPRESSION: No interval change and no mammographic signs of malignancy. Routine yearly mammograms recommended. ASSESSMENT CATEGORY: BIRADS Category 2: Benign. A letter regarding these results will be sent to the patient by the facility within 30 days. FOLLOW UP RECOMMENDATION: Yearly follow up mammogram recommended. (A) Approximately 10% of breast cancers are not detected by mammography. A normal mammogram should not delay biopsy of a clinically suspicious abnormality. Electronically Signed: Enzo Bueno MD at 14:55 EST ,
== END | disposition home or self-care (01) ==
LOC: OPBI 12:50
PROVIDERS: PCP Internal Medicine; Referring Provider Internal Medicine; Visit Provider Internal Medicine
DX: Z12.31 Encounter for screening mammogram for malignant neoplasm of breast (principal)
CPT/HCPCS: 77063; 77067

== ENCOUNTER → 2023-09-28 | Outpatient (CLI) | payer MEDICARE, SELFPAY ==
--- NOTE | 2023-09-28 16:54 | RAD_ITS ---
STUDY: X-RAY - LUMBAR SPINE REASON FOR EXAM: Female, 77 years old. Possible compression fracture, lower thoracic TECHNIQUE: 2 view(s) of the lumbar spine were obtained. COMPARISON: March 22, 2022 FINDINGS: Normal lumbar lordosis. There is a dextroscoliosis of the lumbar spine. There is diffuse demineralization with multi-level endplate spondylosis. There is multi-level degenerative disc disease with multi-level disc space narrowing. There is no demonstrated fracture. There is postoperative change of the lower lumbar spine. There is atherosclerotic calcification of the abdominal aorta without a demonstrated aneurysm. RAD/Lumbar Spine 2 or 3 Views IMPRESSION: Degenerative changes of the spine, as detailed above. Electronically Signed: Lan Hwang MD at 9:10 EST ,
--- NOTE | 2023-09-28 16:55 | RAD_ITS ---
STUDY: X-RAY - THORACIC SPINE REASON FOR EXAM: Female, 77 years old. Possible compression fracture, lower thoracic TECHNIQUE: Frontal and lateral view(s) of the thoracic spine were obtained. COMPARISON: None. FINDINGS: Normal kyphosis of the thoracic spine. There is thoracic dextro scoliosis. There is demineralization of the thoracic spine with endplate spondylosis. There is no acute fracture. There are atherosclerotic calcifications. RAD/Thoracic Spine 3 Views IMPRESSION: Scoliosis and degenerative change. Electronically Signed: Lan Hwang MD at 9:08 EST ,
[2023-09-28 17:02] LABS: Absolute Lymphocyte Count 1.67 X10^3/uL (0.83-4.51); Absolute Neutrophil Count 3.7 X10^3/uL (2.0-7.7); Basophil# 0.04 X10^3/uL; Basophil% 0.7 % (0-1); Eosinophil# 0.22 X10^3/uL; Eosinophils% 3.6 % (0-5); Hematocrit 37.4 % (37-47); Hemoglobin 12.5 g/dL (12.0-15.0); Lymphocyte # 1.67 X10^3/ul (0.83-4.51); Lymphocyte % 27.4 % (19-41); Mean Corp Hgb Conc 33.4 g/dL (32-36); Mean Corpuscular Hgb 31.6 pg (27.0-32.0); Mean Corpuscular Volume 94.7 fL (81-99); Mean Platelet Vol. 9.1 fl (6.2-12.0); Monocyte# 0.42 X10^3/uL; Monocyte% 6.9 % (0-10); NRBC Flagged by Analyzer 0 % (0-5); Neutrophil # 3.72 X10^3/uL (2.7-7.7); Neutrophil % 61.1 % (47-70); Platelet Count 266 K/mm3 (150-450); RBC Distribution Width SD 41.5 fl (35.1-43.9); Red Blood Count 3.95 M/mm3 (4.2-5.4); White Blood Count 6.1 K/mm3 (4.4-11.0)
[2023-09-28 18:05] LABS: Vitamin D,25 Hydroxy 46.4 ng/mL
[2023-09-28 18:31] LABS: ALB/GLOB Ratio 1.2 RATIO (0.9-2.4); AST(SGOT) 21 U/L (15-37); Alanine Aminotransfer ALT/SGPT 19 U/L (13-56); Albumin, Serum 3.7 g/dL (3.2-5.0); Alkaline Phosphatase 77 U/L (45-117); Anion Gap 4 (5-15); BUN 23 mg/dL (7-18); BUN/Creat Ratio 25.9 RATIO (10-20); Calcium,Total 8.8 mg/dL (8.5-10.1); Chloride 106 mmol/L (98-107); Cholesterol 254 mg/dL (200); Creatinine, Serum 0.89 mg/dL (0.55-1.02); EST Glomerular Filtration Rate 66 mL/min (>60); Est Glom Filt Rate - Afr Amer 79 mL/min (>60); Globulin 3.2 g/dL (2.2-4.2); Glucose 88 mg/dL (74-106); High Density Lipoprotein 84 mg/dL; Magnesium 2.2 mg/dL (1.6-2.6); Potassium 3.9 mmol/L (3.5-5.1); Protein, Total 6.9 g/dL (6.4-8.2); Sodium Level 139 mmol/L (136-145); Thyroid Stim Hormone (TSH) 1.03 uIU/mL (0.358-3.74); Triglycerides 143 mg/dL; Very Low Density Lipoprotein 29 mg/dL (5-40)
== END | disposition home or self-care (01) ==
PROVIDERS: PCP Internal Medicine; Referring Provider Internal Medicine; Visit Provider Internal Medicine
DX: M54.6 Pain in thoracic spine (principal); R10.31 Right lower quadrant pain; Z98.890 Other specified postprocedural states; Z87.19 Personal history of other diseases of the digestive system; E03.9 Hypothyroidism, unspecified; I10 Essential (primary) hypertension; E07.9 Disorder of thyroid, unspecified; K22.70 Barrett's esophagus without dysplasia; Z13.220 Encounter for screening for lipoid disorders; E55.9 Vitamin D deficiency, unspecified; R68.89 Other general symptoms and signs
CPT/HCPCS: 36415; 72072; 72100; 80053; 80061; 82306; 83735; 84443; 85025

== ENCOUNTER → 2023-10-18 | Outpatient (CLI) | payer MEDICARE, SELFPAY ==
--- NOTE | 2023-10-18 13:49 | ART_ITS ---
Reason For Study: Abnormal screening Procedure A bilateral lower extremity continuous wave Doppler with analog waveform analysis and ankle brachial indexes. Left Segmental Pressures Left brachial= 134mmHg. Left posterior tibial artery = 160mmHg. Left dorsalis pedis artery = 137mmHg. Left digit = 112 mmHg. The left dorsalis pedis waveforms are triphasic. The left posterior tibial artery waveforms are triphasic. Right Segmental Pressures Right brachial= 133mmHg. Right posterior tibial artery = 158mmHg. Right dorsalis pedis artery = 140mmHg. Right digit = 103 mmHg. The right dorsalis pedis waveforms are triphasic. The right posterior tibial artery waveforms are triphasic. Indices The right ankle brachial index by the dorsalis pedis is 1.04. The right ankle brachial index by the posterior tibial artery is 1.18. The right digital-brachial index is 0.77. The left ankle brachial index by the dorsalis pedis is 1.02. The left ankle brachial index by the posterior tibial artery is 1.19. The left digital-brachial index is 0.84. VL/Ankle Brachial Index Interpretation Summary Right YOLANDA 1.18, normal. TBI and Doppler/PVR waveforms of the right ankle normal at rest. Left YOLANDA 1.19, normal. TBI and Doppler/PVR waveforms of the left ankle normal a t rest. Ordering Physician: Antonia Louis Referring Physician: Antonia Louis M.D. Performed By: Melba Gallegos RVT
== END | disposition home or self-care (01) ==
LOC: CVS 13:48
PROVIDERS: PCP Internal Medicine; Referring Provider Internal Medicine; Visit Provider Internal Medicine
DX: R68.89 Other general symptoms and signs (principal); I73.9 Peripheral vascular disease, unspecified
CPT/HCPCS: 93922

== ENCOUNTER → 2024-07-02 | Outpatient (CLI) | payer MEDICARE, SELFPAY ==
[2024-07-02 17:44] LABS: Absolute Lymphocyte Count 1.11 X10^3/uL (0.83-4.51); Absolute Neutrophil Count 3.5 X10^3/uL (2.0-7.7); Basophil# 0.03 X10^3/uL; Basophil% 0.6 % (0-1); Eosinophil# 0.12 X10^3/uL; Eosinophils% 2.3 % (0-5); Hematocrit 33.5 % (37-47); Hemoglobin 11.5 g/dL (12.0-15.0); Lymphocyte # 1.11 X10^3/ul (0.83-4.51); Lymphocyte % 21.1 % (19-41); Mean Corp Hgb Conc 34.3 g/dL (32-36); Mean Corpuscular Hgb 32.8 pg (27.0-32.0); Mean Corpuscular Volume 95.4 fL (81-99); Mean Platelet Vol. 9.3 fl (6.2-12.0); Monocyte# 0.51 X10^3/uL; Monocyte% 9.7 % (0-10); NRBC Flagged by Analyzer 0 % (0-5); Neutrophil # 3.47 X10^3/uL (2.7-7.7); Neutrophil % 65.9 % (47-70); Platelet Count 238 K/mm3 (150-450); RBC Distribution Width CV 12.7 % (11.6-14.6); RBC Distribution Width SD 43.8 fl (35.1-43.9); Red Blood Count 3.51 M/mm3 (4.2-5.4); White Blood Count 5.3 K/mm3 (4.4-11.0)
[2024-07-02 18:04] LABS: Vitamin D,25 Hydroxy 56.6 ng/mL
[2024-07-02 18:18] LABS: ALB/GLOB Ratio 1.2 RATIO (0.9-2.4); AST(SGOT) 26 U/L (15-37); Alanine Aminotransfer ALT/SGPT 21 U/L (13-56); Albumin, Serum 3.6 g/dL (3.2-5.0); Alkaline Phosphatase 70 U/L (45-117); Anion Gap 8 (5-15); BUN 32 mg/dL (7-18); BUN/Creat Ratio 24.6 RATIO (10-20); Calcium,Total 8.8 mg/dL (8.5-10.1); Chloride 101 mmol/L (98-107); Cholesterol 221 mg/dL (200); EST Glomerular Filtration Rate 42 mL/min (>60); Est Glom Filt Rate - Afr Amer 51 mL/min (>60); Glucose 108 mg/dL (74-106); High Density Lipoprotein 102 mg/dL; Potassium 3.6 mmol/L (3.5-5.1); Protein, Total 6.6 g/dL (6.4-8.2); Sodium Level 134 mmol/L (136-145); Triglycerides 116 mg/dL; Very Low Density Lipoprotein 23 mg/dL (5-40)
== END | disposition home or self-care (01) ==
LOC: MFPLAB 14:32
PROVIDERS: PCP Family Medicine; Visit Provider Family Medicine
DX: K21.9 Gastro-esophageal reflux disease without esophagitis (principal); I10 Essential (primary) hypertension
CPT/HCPCS: 36415; 80053; 80061; 82306; 84443; 85025

== ENCOUNTER → 2024-08-02 | Outpatient (CLI) | payer MEDICARE, SELFPAY ==
--- NOTE | 2024-08-02 12:38 | RAD_ITS ---
EXAM: XR RIGHT RIBS, 2 VIEWS CLINICAL INDICATION: pain on right side TECHNIQUE: Frontal and oblique views of the right ribs. COMPARISON: No relevant prior studies available. FINDINGS: LUNGS AND PLEURAL SPACES: Unremarkable. No consolidation or edema. No pneumothorax. No effusion. BONES/JOINTS: Age-indeterminate minimally displaced anterolateral sixth rib fracture. No sclerotic or destructive changes observed. SOFT TISSUES: Unremarkable. No soft tissue swelling or gas. RAD/Ribs Unil 2V No CXR IMPRESSION: Age-indeterminate minimally displaced anterolateral sixth rib fracture. Otherwise unremarkable exam. Electronically Signed: Ronnie Rangel MD at 11:26 EST ,
== END | disposition home or self-care (01) ==
LOC: MTRAD 12:35
PROVIDERS: PCP Family Medicine; Referring Provider Family Medicine; Visit Provider Family Medicine
DX: R07.89 Other chest pain (principal)
CPT/HCPCS: 71100

== ENCOUNTER → 2025-01-16 | Outpatient (CLI) | payer MEDICARE, SELFPAY ==
--- NOTE | 2025-01-16 12:34 | RAD_ITS ---
PROCEDURE: SHOULDER MIN 2 VIEWS 01/16/2025 REASON FOR EXAM: PAIN TECHNIQUE: Four views left shoulder COMPARISON: None available FINDINGS: [id number] buttressing and osteophyte formation at the medial inferior humeral head with associated severe appearing focal joint space narrowing of the glenohumeral joint. AC joint appears within limits. No fracture or dislocation. Visualized left lung appears clear. Atherosclerotic change seen at the aortic arch. RAD/Shoulder min 2 Views IMPRESSION: [id number] buttressing and osteophyte formation at the medial inferior h umeral head with associated severe appearing focal joint space narrowing of the glenohumeral joint. Reading Location: [id number]
== END | disposition home or self-care (01) ==
LOC: MTRAD 12:32
PROVIDERS: PCP Family Medicine; Referring Provider Family Medicine; Visit Provider Family Medicine
DX: M25.512 Pain in left shoulder (principal)
CPT/HCPCS: 73030

== ENCOUNTER → 2025-04-15 | Outpatient (CLI) | payer MEDICARE, SELFPAY | END | disposition home or self-care (01) | LOC: MFPLAB 16:38 | PROVIDERS: PCP Family Medicine; Referring Provider Family Medicine; Visit Provider Family Medicine | DX: Z13.1 Encounter for screening for diabetes mellitus (principal); E03.9 Hypothyroidism, unspecified | CPT/HCPCS: 36415; 83036; 84439; 84443 ==